=== PATIENT | male | born 1940 | race Caucasian/White ===

== ENCOUNTER 2020-03-10 08:56 | Inpatient (IN) | payer OTHER, MEDICARE ==
--- NOTE | 2020-03-10 09:02 | EDM.PDOC ---
ED HPI GENERAL MEDICAL PROBLEM - General Chief Complaint: Respiratory Problem Stated Complaint: SHORTNESS OF BREATH Time Seen by Provider: 03/10/20 09:02 Source of Information: Reports: Patient, Old Records, RN, RN Notes Reviewed History Limitations: Reports: No Limitations - History of Present Illness INITIAL COMMENTS - FREE TEXT/NARRATIVE: Pt presents to ED via POV with c/o SOB. Pt states that this started yesterday, has increased in severity since then. Pt states that he has a Hx of COPD. He is a former tobacco smoker who quit smoking 5 years ago. Pt used 3L of supplemental continuous home oxygen at all times. He admits to cough, shortness of breath, and left sided chest pain. He rates the pain 9/10. Pt is unsure if he has been tested for COVID. Pt states he had a procedure on his kidneys on 03/08/20, but is unsure if he was tested prior to the procedure. He is unsure if he has had a fever or not. Onset: Gradual Duration: Day(s): (1) Location: Reports: Chest Quality: Reports: Ache Severity: Moderate Improves with: Reports: None Worsens with: Reports: None Associated Symptoms: Reports: No Other Symptoms Treatments [employer]: Reports: Other Medication(s) Left Chest Pain Score (Numeric/FACES): 9 - Related Data Allergies Allergy/AdvReac Type Severity Reaction Status Date / Time No Known Allergies Allergy Verified 03/10/20 09:03 Home Meds: Home Meds . [No Known Home Meds] 03/10/20 [History] Past Medical History Respiratory History: Reports: COPD Social & Family History - Family History Family Medical History: Noncontributory - Tobacco Use Tobacco Use Status *Q: Former Tobacco User Tobacco Use Within Last Twelve Months: Cigarettes Month/Year Tobacco Last Used: 05/2014 - Living Situation & Occupation Occupation: Retired ED ROS GENERAL - Review of Systems Review Of Systems: Comprehensive ROS is negative, except as noted in HPI. ED EXAM, GENERAL - Physical Exam Exam: See Below Exam Limited By: No Limitations General Appearance: Alert, Mild Distress, Obese Nose: Normal Inspection, Normal Mucosa, No Blood Throat/Mouth: Normal Inspection, Normal Voice, No Airway Compromise Head: Atraumatic, Normocephalic Neck: Normal Inspection Respiratory/Chest: Decreased Breath Sounds, Crackles, Rhonchi, Wheezing. No: Rales, Stridor Cardiovascular: Regular Rate, Rhythm, Tachycardia, Other (+2 pitting edema to knees B/L) GI/Abdominal: Normal Bowel Sounds, Soft, Non-Tender Back Exam: Normal Inspection Extremities: Normal Range of Motion, Non-Tender, Pedal Edema Neurological: Alert, Oriented, No Motor/Sensory Deficits Psychiatric: Anxious Skin Exam: Warm, Dry, Intact #1 Interpretation EKG Date: 03/10/20 Time: 09:08 Rhythm: A-Fib (A-fib/flutter) Rate (Beats/Min): 101 [place]: RAD-Right [place] Deviation QRS: Normal ST-T: Normal QT: Prolonged (borderline) Comparison: NA - No Prior EKG Course - Vital Signs Last Recorded V/S: Last Vital Signs Temp 100.4 F 03/10/20 09:19 Pulse 102 H 03/10/20 10:20 Resp 24 H 03/10/20 09:19 BP 142/103 H 03/10/20 09:19 Pulse Ox 92 L 03/10/20 09:19 - Orders/Labs/Meds Orders: Active Orders 24 hr Category Date Time Status EKG 12 Lead [EKG Documentation Completion] [RC] STAT Care 03/10/20 09:11 Active Peripheral IV Care [RC] . DIRECTED Care 03/10/20 09:12 Active RT Aerosol Therapy [RC] ASDIRECTED Care 03/10/20 09:51 Active CULTURE BLOOD [BC] Stat Lab 03/10/20 09:37 Received CULTURE BLOOD [BC] Stat Lab 03/10/20 09:37 Received UA RFX VERONICA AND CULT IF INDIC [URIN] Stat Lab 03/10/20 09:51 Ordered Levofloxacin/Dextrose 5%-Water [Levaquin in D5W 750 MG/ Med 03/10/20 09:51 Active 150 ML] 750 mg Premix Bag 1 bag IV ONETIME Sodium Chloride 0.9% [Saline Flush] Med 03/10/20 09:12 Active 10 ml FLUSH ASDIRECTED PRN Blood Culture x2 Reflex Set [OM.PC] Stat Oth 03/10/20 09:10 Ordered Isolation [COMM] Routine Oth 03/10/20 09:12 Active Peripheral IV Insertion Adult [OM.PC] Stat Oth 03/10/20 09:12 Ordered Pulse Oximetry Continuous Monitoring [OM.PC] Routine Oth 03/10/20 09:12 Ordered RT Supplemental Oxygen Titration [RESPCARE] Stat Oth 03/10/20 09:12 Active Medication Orders Levofloxacin/Dextrose 750 mg/ (Premix) 150 mls @ 100 mls/hr IV ONETIME ONE Stop: 03/10/20 11:20 Last Admin: 03/10/20 09:57 Dose: 100 mls/hr Documented by: [id number] Sodium Chloride (Saline Flush) 10 ml FLUSH ASDIRECTED PRN PRN Reason: Keep Vein Open Last Admin: 03/10/20 09:57 Dose: 10 ml Documented by: [email or web address] Labs: Laboratory Tests 03/10/20 03/10/20 03/10/20 Range/Units 09:14 09:37 09:37 WBC 18.5 H (5.0-10.0) 10^3/uL RBC 4.66 (4.6-6.2) 10^6/uL Hgb 14.0 (14.0-18.0) g/dL Hct 45.2 (40.0-54.0) % MCV 97.0 (80-100) fL MCH 30.0 (27.0-34.0) pg MCHC 31.0 L (33.0-35.0) g/dL Plt Count 264 (150-450) 10^3/uL Neut % (Auto) 83.8 H (42.2-75.2) % Lymph % (Auto) 6.9 L (20.5-50.1) % [place] % (Auto) 7.1 (2-8) % Eos % (Auto) 1.6 (1.0-3.0) % Baso % (Auto) 0.6 (0.0-1.0) % PT (9.0-12.0) SEC INR (0.9-1.2) APTT (22.0-34.0) SEC D-Dimer, Quantitative (0-400) ng/mL Sodium 140 (136-145) mmol/L Potassium 4.0 (3.5-5.1) mmol/L Chloride 100 (98-107) mmol/L Carbon Dioxide 37 H (21-32) mmol/L Anion Gap 7.0 (7-13) mEq/L BUN 18 (7-18) mg/dL Creatinine 1.44 H (0.70-1.30) mg/dL Est Cr Clr Drug Dosing 45.76 mL/min Estimated GFR (MDRD) 48 BUN/Creatinine Ratio 12.5 (No establ ref range) Glucose 104 H (74-99) mg/dL Lactic Acid (0.4-2.0) mmol/L Calcium 8.8 (8.5-10.1) mg/dL Ferritin (26-388) mg/mL Total Bilirubin 0.5 (0.2-1.0) mg/dL AST 23 (15-37) U/L ALT 31 (16-63) U/L Alkaline Phosphatase 104 (46-116) U/L Lactate Dehydrogenase 486 H (85-227) U/L Troponin I < 0.017 (0.000-0.056) ng/mL C-Reactive Protein 1.3 H (0.0-0.9) mg/dL B-Natriuretic Peptide 229 H (0-100) pg/ml Total Protein 7.4 (6.4-8.2) g/dL Albumin 3.8 (3.4-5.0) g/dL Globulin 3.6 Albumin/Globulin Ratio 1.1 SARS CoV-2 RNA Rapid SHAHRZAD Negative (NEGATIVE) 03/10/20 03/10/20 03/10/20 Range/Units 09:37 09:37 09:37 WBC (5.0-10.0) 10^3/uL RBC (4.6-6.2) 10^6/uL Hgb (14.0-18.0) g/dL Hct (40.0-54.0) % MCV (80-100) fL MCH (27.0-34.0) pg MCHC (33.0-35.0) g/dL Plt Count (150-450) 10^3/uL Neut % (Auto) (42.2-75.2) % Lymph % (Auto) (20.5-50.1) % [place] % (Auto) (2-8) % Eos % (Auto) (1.0-3.0) % Baso % (Auto) (0.0-1.0) % PT 13.3 H (9.0-12.0) SEC INR 1.4 H (0.9-1.2) APTT 27.3 (22.0-34.0) SEC D-Dimer, Quantitative 624 H (0-400) ng/mL Sodium (136-145) mmol/L Potassium (3.5-5.1) mmol/L Chloride (98-107) mmol/L Carbon Dioxide (21-32) mmol/L Anion Gap (7-13) mEq/L BUN (7-18) mg/dL Creatinine (0.70-1.30) mg/dL Est Cr Clr Drug Dosing mL/min Estimated GFR (MDRD) BUN/Creatinine Ratio (No establ ref range) Glucose (74-99) mg/dL Lactic Acid 1.4 (0.4-2.0) mmol/L Calcium (8.5-10.1) mg/dL Ferritin (26-388) mg/mL Total Bilirubin (0.2-1.0) mg/dL AST (15-37) U/L ALT (16-63) U/L Alkaline Phosphatase (46-116) U/L Lactate Dehydrogenase (85-227) U/L Troponin I (0.000-0.056) ng/mL C-Reactive Protein (0.0-0.9) mg/dL B-Natriuretic Peptide (0-100) pg/ml Total Protein (6.4-8.2) g/dL Albumin (3.4-5.0) g/dL Globulin Albumin/Globulin Ratio SARS CoV-2 RNA Rapid SHAHRZAD (NEGATIVE) 03/10/20 Range/Units 09:37 WBC (5.0-10.0) 10^3/uL RBC (4.6-6.2) 10^6/uL Hgb (14.0-18.0) g/dL Hct (40.0-54.0) % MCV (80-100) fL MCH (27.0-34.0) pg MCHC (33.0-35.0) g/dL Plt Count (150-450) 10^3/uL Neut % (Auto) (42.2-75.2) % Lymph % (Auto) (20.5-50.1) % [place] % (Auto) (2-8) % Eos % (Auto) (1.0-3.0) % Baso % (Auto) (0.0-1.0) % PT (9.0-12.0) SEC INR (0.9-1.2) APTT (22.0-34.0) SEC D-Dimer, Quantitative (0-400) ng/mL Sodium (136-145) mmol/L Potassium (3.5-5.1) mmol/L Chloride (98-107) mmol/L Carbon Dioxide (21-32) mmol/L Anion Gap (7-13) mEq/L BUN (7-18) mg/dL Creatinine (0.70-1.30) mg/dL Est Cr Clr Drug Dosing mL/min Estimated GFR (MDRD) BUN/Creatinine Ratio (No establ ref range) Glucose (74-99) mg/dL Lactic Acid (0.4-2.0) mmol/L Calcium (8.5-10.1) mg/dL Ferritin 51 (26-388) mg/mL Total Bilirubin (0.2-1.0) mg/dL AST (15-37) U/L ALT (16-63) U/L Alkaline Phosphatase (46-116) U/L Lactate Dehydrogenase (85-227) U/L Troponin I (0.000-0.056) ng/mL C-Reactive Protein (0.0-0.9) mg/dL B-Natriuretic Peptide (0-100) pg/ml Total Protein (6.4-8.2) g/dL Albumin (3.4-5.0) g/dL Globulin Albumin/Globulin Ratio SARS CoV-2 RNA Rapid SHAHRZAD (NEGATIVE) Meds: Medications Generic Name Dose Route Start Last Admin Trade Name Freq PRN Reason Stop Dose Admin Levofloxacin/Dextrose 750 mg/ 150 mls @ 100 mls/hr 03/10/20 09:51 03/10/20 09:57 Premix IV 03/10/20 11:20 100 mls/hr ONETIME ONE Administration Sodium Chloride 10 ml 03/10/20 09:12 03/10/20 09:57 Saline Flush FLUSH 10 ml ASDIRECTED PRN Administration Keep Vein Open Discontinued Medications Generic Name Dose Route Start Last Admin Trade Name Freq PRN Reason Stop Dose Admin Albuterol/Ipratropium 3 ml 03/10/20 09:50 03/10/20 09:57 Duoneb 3.0-0.5 Mg/3 Ml NEB 03/10/20 09:51 3 ml ONETIME ONE Administration Dexamethasone 6 mg 03/10/20 09:12 03/10/20 09:57 Decadron IVPUSH 03/10/20 09:13 6 mg ONETIME ONE Administration Furosemide 40 mg 03/10/20 10:12 03/10/20 10:27 Lasix IVPUSH 03/10/20 10:13 40 mg NOW ONE Administration - Radiology Interpretation Free Text/Narrative:: CXR: no signs of CHF, lung mass, or lobar pneumonia, see Rad. report. Departure - Departure Time of Disposition: 10:53 (admitted to Dr. Lopez) Disposition: Admitted As Inpatient 68 Condition: Fair Clinical Impression: Acute exacerbation of chronic obstructive pulmonary disease (COPD) - Discharge Information *PRESCRIPTION DRUG MONITORING PROGRAM REVIEWED*: Not Applicable *COPY OF PRESCRIPTION DRUG MONITORING REPORT IN PATIENT ANNELISE: Not Applicable Forms: ED Department Discharge Sepsis Event Note (ED) - Focused Exam Vital Signs: Vital Signs Temp Pulse Resp BP Pulse Ox 03/10/20 10:20 102 H 03/10/20 09:19 100.4 F 102 H 24 H 142/103 H 92 L - My Orders Last 24 Hours: My Active Orders 03/10/20 09:10 Blood Culture x2 Reflex Set [OM.PC] Stat 03/10/20 09:11 EKG 12 Lead [EKG Documentation Completion] [RC] STAT 03/10/20 09:12 Peripheral IV Care [RC] . DIRECTED Sodium Chloride 0.9% [Saline Flush] 10 ml FLUSH ASDIRECTED PRN Isolation [COMM] Routine Peripheral IV Insertion Adult [OM.PC] Stat Pulse Oximetry Continuous Monitoring [OM.PC] Routine RT Supplemental Oxygen Titration [RESPCARE] Stat 03/10/20 09:37 CULTURE BLOOD [BC] Stat CULTURE BLOOD [BC] Stat 03/10/20 09:51 RT Aerosol Therapy [RC] ASDIRECTED UA RFX VERONICA AND CULT IF INDIC [URIN] Stat Levofloxacin/Dextrose 5%-Water [Levaquin in D5W 750 MG/150 ML] 750 mg Premix Bag 1 bag IV ONETIME - Assessment/Plan Last 24 Hours: My Active Orders 03/10/20 09:10 Blood Culture x2 Reflex Set [OM.PC] Stat 03/10/20 09:11 EKG 12 Lead [EKG Documentation Completion] [RC] STAT 03/10/20 09:12 Peripheral IV Care [RC] . DIRECTED Sodium Chloride 0.9% [Saline Flush] 10 ml FLUSH ASDIRECTED PRN Isolation [COMM] Routine Peripheral IV Insertion Adult [OM.PC] Stat Pulse Oximetry Continuous Monitoring [OM.PC] Routine RT Supplemental Oxygen Titration [RESPCARE] Stat 03/10/20 09:37 CULTURE BLOOD [BC] Stat CULTURE BLOOD [BC] Stat 03/10/20 09:51 RT Aerosol Therapy [RC] ASDIRECTED UA RFX VERONICA AND CULT IF INDIC [URIN] Stat Levofloxacin/Dextrose 5%-Water [Levaquin in D5W 750 MG/150 ML] 750 mg Premix Bag 1 bag IV ONETIME
[2020-03-10] MEDS ORDERED: Sodium Chloride 0.9% 10 ML Syringe FLUSH PRN (09:12)
[2020-03-10] MEDS ORDERED: Dexamethasone 4 MG/ML SDV IVPUSH ONE (09:12)
[2020-03-10] MEDS ORDERED: Albuterol/Ipratropium 3.0-0.5 MG/3 ML Neb Soln NEB ONE (09:50)
[2020-03-10] MEDS ORDERED: Levofloxacin/Dextrose 5%-Water 750 MG in Premix Bag 1 BAG IV ONE (09:51)
[2020-03-10 10:07] LABS: CHLORIDE,CL 100 mmol/L (98-107); PTT,PARTIAL THROMBOPLSTIN TIME 27.3 SEC (22.0-34.0); SODIUM,NA 140 mmol/L (136-145)
[2020-03-10] MEDS ORDERED: Furosemide 40 MG/4 ML VIAL IVPUSH ONE (10:12)
--- NOTE | 2020-03-10 10:20 | CR ---
EXAMINATION: Chest 1V Frontal SEX: Male AGE: 79 years CLINICAL HISTORY: 79-year-old male with COPD, dyspnea, cough and hypoxia (WBC over 18,000). No comparison films immediately available at this institution. Interpretation: Less than optimal inspiratory effort crowding the bronchovascular markings both lung bases. No focal lobar infiltrate or other atelectasis. No lung mass or hilar lymphadenopathy. Normal cardiac silhouette (size and configuration). Thoracic aorta unremarkable. No pulmonary vascular congestion, cephalization of flow, alveolar edema or dependent pleural effusion. No pneumothorax or pneumomediastinum. Midline tracheal bronchial airway unremarkable. CONCLUSION: No signs of heart failure, lung mass or lobar pneumonia.
[2020-03-10] MEDS ORDERED: Docusate Sodium 100 MG Cap PO PRN (12:48)
[2020-03-10] MEDS ORDERED: Acetaminophen 325 MG Tab PO PRN (12:48)
[2020-03-10] MEDS ORDERED: Temazepam 15 MG Cap PO PRN (12:48)
[2020-03-10] MEDS ORDERED: Levofloxacin/Dextrose 5%-Water 750 MG in Premix Bag 1 BAG IV SCH (13:00)
--- NOTE | 2020-03-10 13:05 | PCM.HP ---
H&P History of Present Illness - General Date of Service: 03/10/20 Admit Problem/Dx: Admission Diagnosis/Problem Admission Diagnosis/Problem Acute exacerbation of chronic obstructive airways disease Source of Information: Patient, Provider - History of Present Illness Initial Comments - Free Text/Narative: 79-year-old gentleman with a history of COPD, home oxygen dependent at 3 L per nasal cannula during the day and CPAP with 5 L at night The patient was recently hospitalized and underwent cryoablation of renal lesion. He has a history of chronic lower extremity edema. The patient presented with increasing shortness of breath that started the day prior to admission. No associated fever, cough. Was c/o left sided chest pain with cough Left Chest Pain Score (Numeric/FACES): 9 - Related Data Allergies/Adverse Reactions: Allergies Allergy/AdvReac Type Severity Reaction Status Date / Time No Known Allergies Allergy Verified 03/10/20 09:03 Home Medications: Home Meds . [Unable to Verify Home Med List] 03/10/20 [History] Past Medical History Cardiovascular History: Reports: [place] Respiratory History: Reports: COPD - Past Surgical History Cardiovascular Surgical History: Reports: Coronary Artery Stent Male Surgical History: Reports: Other (See Below) Social & Family History - Family History Family Medical History: Noncontributory - Tobacco Use Tobacco Use Status *Q: Former Tobacco User Used Tobacco, but Quit: Yes Month/Year Tobacco Last Used: 05/2014 - Caffeine Use Caffeine Use: Reports: Coffee - Living Situation & Occupation Occupation: Retired H&P Review of Systems - Review of Systems: Review Of Systems: See Below General: Reports: Weakness. Denies: Fever, Chills Pulmonary: Reports: Shortness of Breath, Pleuritic Chest Pain, Cough. Denies: Wheezing, Sputum Gastrointestinal: Denies: Abdominal Pain Genitourinary: Denies: Dysuria Neurological: Denies: Confusion Exam - Exam Exam: See Below - Vital Signs Vital Signs: Last Vital Signs Temp 99.5 F 03/10/20 12:28 Pulse 86 03/10/20 12:28 Resp 22 H 03/10/20 12:28 BP 126/84 03/10/20 12:28 Pulse Ox 91 L 03/10/20 12:28 Weight: 238 lb - Exam Quality Assessment: Supplemental Oxygen General: Alert, Oriented Neck: Supple Lungs: Normal Respiratory Effort, Decreased Breath Sounds, Wheezing (mild) Cardiovascular: Irregular Rhythm GI/Abdominal Exam: Normal Bowel Sounds, Soft, Non-Tender Extremities: Pedal Edema (2+) - Patient Data Lab Results Last 24 hrs: Laboratory Results - last 24 hr 03/10/20 03/10/20 03/10/20 Range/Units 09:14 09:37 09:37 WBC 18.5 H (5.0-10.0) 10^3/uL RBC 4.66 (4.6-6.2) 10^6/uL Hgb 14.0 (14.0-18.0) g/dL Hct 45.2 (40.0-54.0) % MCV 97.0 (80-100) fL MCH 30.0 (27.0-34.0) pg MCHC 31.0 L (33.0-35.0) g/dL Plt Count 264 (150-450) 10^3/uL Neut % (Auto) 83.8 H (42.2-75.2) % Lymph % (Auto) 6.9 L (20.5-50.1) % [place] % (Auto) 7.1 (2-8) % Eos % (Auto) 1.6 (1.0-3.0) % Baso % (Auto) 0.6 (0.0-1.0) % PT (9.0-12.0) SEC INR (0.9-1.2) APTT (22.0-34.0) SEC D-Dimer, Quantitative (0-400) ng/mL Sodium 140 (136-145) mmol/L Potassium 4.0 (3.5-5.1) mmol/L Chloride 100 (98-107) mmol/L Carbon Dioxide 37 H (21-32) mmol/L Anion Gap 7.0 (7-13) mEq/L BUN 18 (7-18) mg/dL Creatinine 1.44 H (0.70-1.30) mg/dL Est Cr Clr Drug Dosing 45.76 mL/min Estimated GFR (MDRD) 48 BUN/Creatinine Ratio 12.5 (No establ ref range) Glucose 104 H (74-99) mg/dL Lactic Acid (0.4-2.0) mmol/L Calcium 8.8 (8.5-10.1) mg/dL Ferritin (26-388) mg/mL Total Bilirubin 0.5 (0.2-1.0) mg/dL AST 23 (15-37) U/L ALT 31 (16-63) U/L Alkaline Phosphatase 104 (46-116) U/L Lactate Dehydrogenase 486 H (85-227) U/L Troponin I < 0.017 (0.000-0.056) ng/mL C-Reactive Protein 1.3 H (0.0-0.9) mg/dL B-Natriuretic Peptide 229 H (0-100) pg/ml Total Protein 7.4 (6.4-8.2) g/dL Albumin 3.8 (3.4-5.0) g/dL Globulin 3.6 Albumin/Globulin Ratio 1.1 Urine Color (YELLOW) Urine Appearance (CLEAR) Urine pH (5.0-9.0) Ur Specific [place] (1.005-1.030) Urine Protein (NEGATIVE) Urine Glucose (UA) (NEGATIVE) Urine Ketones (NEGATIVE) Urine Occult Blood (NEGATIVE) Urine Nitrite (NEGATIVE) Urine Bilirubin (NEGATIVE) Urine Urobilinogen (0.2-1.0) mg/dL Ur Leukocyte Esterase (NEGATIVE) Urine RBC /HPF Urine WBC (0-5/HPF) /HPF Ur Epithelial Cells (NOT SEEN) /HPF Amorphous Sediment (NOT SEEN) /HPF Urine Bacteria (0-FEW/HPF) /HPF Urine Mucus (NOT SEEN) /LPF SARS CoV-2 RNA Rapid SHAHRZAD Negative (NEGATIVE) 03/10/20 03/10/20 03/10/20 Range/Units 09:37 09:37 09:37 WBC (5.0-10.0) 10^3/uL RBC (4.6-6.2) 10^6/uL Hgb (14.0-18.0) g/dL Hct (40.0-54.0) % MCV (80-100) fL MCH (27.0-34.0) pg MCHC (33.0-35.0) g/dL Plt Count (150-450) 10^3/uL Neut % (Auto) (42.2-75.2) % Lymph % (Auto) (20.5-50.1) % [place] % (Auto) (2-8) % Eos % (Auto) (1.0-3.0) % Baso % (Auto) (0.0-1.0) % PT 13.3 H (9.0-12.0) SEC INR 1.4 H (0.9-1.2) APTT 27.3 (22.0-34.0) SEC D-Dimer, Quantitative 624 H (0-400) ng/mL Sodium (136-145) mmol/L Potassium (3.5-5.1) mmol/L Chloride (98-107) mmol/L Carbon Dioxide (21-32) mmol/L Anion Gap (7-13) mEq/L BUN (7-18) mg/dL Creatinine (0.70-1.30) mg/dL Est Cr Clr Drug Dosing mL/min Estimated GFR (MDRD) BUN/Creatinine Ratio (No establ ref range) Glucose (74-99) mg/dL Lactic Acid 1.4 (0.4-2.0) mmol/L Calcium (8.5-10.1) mg/dL Ferritin (26-388) mg/mL Total Bilirubin (0.2-1.0) mg/dL AST (15-37) U/L ALT (16-63) U/L Alkaline Phosphatase (46-116) U/L Lactate Dehydrogenase (85-227) U/L Troponin I (0.000-0.056) ng/mL C-Reactive Protein (0.0-0.9) mg/dL B-Natriuretic Peptide (0-100) pg/ml Total Protein (6.4-8.2) g/dL Albumin (3.4-5.0) g/dL Globulin Albumin/Globulin Ratio Urine Color (YELLOW) Urine Appearance (CLEAR) Urine pH (5.0-9.0) Ur Specific [place] (1.005-1.030) Urine Protein (NEGATIVE) Urine Glucose (UA) (NEGATIVE) Urine Ketones (NEGATIVE) Urine Occult Blood (NEGATIVE) Urine Nitrite (NEGATIVE) Urine Bilirubin (NEGATIVE) Urine Urobilinogen (0.2-1.0) mg/dL Ur Leukocyte Esterase (NEGATIVE) Urine RBC /HPF Urine WBC (0-5/HPF) /HPF Ur Epithelial Cells (NOT SEEN) /HPF Amorphous Sediment (NOT SEEN) /HPF Urine Bacteria (0-FEW/HPF) /HPF Urine Mucus (NOT SEEN) /LPF SARS CoV-2 RNA Rapid SHAHRZAD (NEGATIVE) 03/10/20 03/10/20 Range/Units 09:37 10:52 WBC (5.0-10.0) 10^3/uL RBC (4.6-6.2) 10^6/uL Hgb (14.0-18.0) g/dL Hct (40.0-54.0) % MCV (80-100) fL MCH (27.0-34.0) pg MCHC (33.0-35.0) g/dL Plt Count (150-450) 10^3/uL Neut % (Auto) (42.2-75.2) % Lymph % (Auto) (20.5-50.1) % [place] % (Auto) (2-8) % Eos % (Auto) (1.0-3.0) % Baso % (Auto) (0.0-1.0) % PT (9.0-12.0) SEC INR (0.9-1.2) APTT (22.0-34.0) SEC D-Dimer, Quantitative (0-400) ng/mL Sodium (136-145) mmol/L Potassium (3.5-5.1) mmol/L Chloride (98-107) mmol/L Carbon Dioxide (21-32) mmol/L Anion Gap (7-13) mEq/L BUN (7-18) mg/dL Creatinine (0.70-1.30) mg/dL Est Cr Clr Drug Dosing mL/min Estimated GFR (MDRD) BUN/Creatinine Ratio (No establ ref range) Glucose (74-99) mg/dL Lactic Acid (0.4-2.0) mmol/L Calcium (8.5-10.1) mg/dL Ferritin 51 (26-388) mg/mL Total Bilirubin (0.2-1.0) mg/dL AST (15-37) U/L ALT (16-63) U/L Alkaline Phosphatase (46-116) U/L Lactate Dehydrogenase (85-227) U/L Troponin I (0.000-0.056) ng/mL C-Reactive Protein (0.0-0.9) mg/dL B-Natriuretic Peptide (0-100) pg/ml Total Protein (6.4-8.2) g/dL Albumin (3.4-5.0) g/dL Globulin Albumin/Globulin Ratio Urine Color Yellow (YELLOW) Urine Appearance Clear (CLEAR) Urine pH 7.0 (5.0-9.0) Ur Specific [place] 1.020 (1.005-1.030) Urine Protein Trace H (NEGATIVE) Urine Glucose (UA) Negative (NEGATIVE) Urine Ketones Negative (NEGATIVE) Urine Occult Blood Large H (NEGATIVE) Urine Nitrite Negative (NEGATIVE) Urine Bilirubin Negative (NEGATIVE) Urine Urobilinogen 0.2 (0.2-1.0) mg/dL Ur Leukocyte Esterase Negative (NEGATIVE) Urine RBC 30-40 H /HPF Urine WBC 0-5 (0-5/HPF) /HPF Ur Epithelial Cells Rare (NOT SEEN) /HPF Amorphous Sediment Rare (NOT SEEN) /HPF Urine Bacteria Rare (0-FEW/HPF) /HPF Urine Mucus Rare (NOT SEEN) /LPF SARS CoV-2 RNA Rapid SHAHRZAD (NEGATIVE) Result Diagrams: 03/10/20 09:37 03/10/20 09:37 Good Results Last 24 hrs: Microbiology 03/10/20 09:14 Influenza Type A Antigen Screen - Final Nasal, Unspecified NEGATIVE INFLUENZA A VIRUS AG REFERENCE RANGE: NEGATIVE Influenza Type B Antigen Screen - Final NEGATIVE INFLUENZA B VIRUS AG REFERENCE RANGE: NEGATIVE - Problem List (1) Hypoxemia SNOMED Code(s): 982878362 ICD Code: R09.02 - HYPOXEMIA Status: Acute Current Visit: Yes (2) Afib SNOMED Code(s): 36515338 ICD Code: I48.91 - UNSPECIFIED ATRIAL FIBRILLATION Status: Acute Current Visit: Yes (3) Leukocytosis SNOMED Code(s): 122684596, 866450993 ICD Code: D72.829 - ELEVATED WHITE BLOOD CELL COUNT, UNSPECIFIED Status: Acute Current Visit: Yes (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 SNOMED Code(s): 19745261, 26319726, 15975772 ICD Code: D30.02 - BENIGN NEOPLASM OF LEFT KIDNEY Status: Acute Current Visit: Yes (5) Acute exacerbation of chronic obstructive pulmonary disease (COPD) SNOMED Code(s): 902378297 ICD Code: J44.1 - CHRONIC OBSTRUCTIVE PULMONARY DISEASE W (ACUTE) EXACERBATION Status: Acute Current Visit: No Problem List Initiated/Reviewed/Updated: Yes Orders Last 24hrs: Active Orders 24 hr Category Date Time Status Admission Diagnosis [ADT] Routine ADT 03/10/20 10:58 Ordered Admission Status [Patient Status] [ADT] Routine ADT 03/10/20 10:58 Active CPAP Adult [RT BiPAP/CPAP] [RC] ASDIRECTED Care 03/10/20 12:58 Ordered Oxygen Therapy [RC] PRN Care 03/10/20 12:49 Ordered RT Aerosol Therapy [RC] ASDIRECTED Care 03/10/20 13:02 Ordered Up With Assistance [RC] ASDIRECTED Care 03/10/20 12:48 Ordered VTE/DVT Education [RC] PER UNIT ROUTINE Care 03/10/20 12:49 Ordered Vital Signs [RC] Q4H Care 03/10/20 12:49 Ordered Regular Diet [DIET] Diet 03/10/20 Dinner Ordered BASIC METABOLIC PANEL,BMP [CHEM] AM Lab 03/11/20 05:11 Ordered CBC WITH AUTO DIFF [HEME] AM Lab 03/11/20 05:11 Ordered CULTURE BLOOD [BC] Stat Lab 03/10/20 09:37 Received CULTURE BLOOD [BC] Stat Lab 03/10/20 09:37 Received CULTURE SPUTUM + SMEAR [RM] Stat Lab 03/10/20 12:48 Ordered MAGNESIUM [CHEM] AM Lab 03/11/20 05:11 Ordered PHOSPHORUS [CHEM] AM Lab 03/11/20 05:11 Ordered PROCALCITONIN [REF] AM Lab 03/11/20 05:11 Ordered TROPONIN I [CHEM] Timed Lab 03/10/20 18:00 Ordered Acetaminophen [TylenoL] Med 03/10/20 12:48 Ordered 650 mg PO Q4H PRN Albuterol/Ipratropium [DuoNeb 3.0-0.5 MG/3 ML] Med 03/10/20 18:00 Ordered 3 ml NEB Q6HRRT Budesonide [Pulmicort] Med 03/10/20 18:00 Ordered 0.5 mg NEB BIDRT Docusate Sodium [Colace] Med 03/10/20 12:48 Ordered 100 mg PO BID PRN Furosemide [Lasix] Med 03/10/20 21:00 Ordered 40 mg PO BID Levofloxacin/Dextrose 5%-Water [Levaquin in D5W 750 MG/ Med 03/10/20 13:00 Ordered 150 ML] 750 mg Premix Bag 1 bag IV Q24H Rivaroxaban [Xarelto] Med 03/10/20 18:00 Ordered 15 mg PO WITHDINNER Sodium Chloride 0.9% [Saline Flush] Med 03/10/20 09:12 Active 10 ml FLUSH ASDIRECTED PRN Sodium Chloride 0.9% [Saline Flush] Med 03/10/20 12:48 Ordered 10 ml FLUSH ASDIRECTED PRN Temazepam [Restoril] Med 03/10/20 12:48 Ordered 15 mg PO BEDTIME PRN methylPREDNISolone Sod Succ [Solu-MEDROL] Med 03/10/20 13:15 Ordered 40 mg IVPUSH Q8H Blood Culture x2 Reflex Set [OM.PC] Stat Oth 03/10/20 09:10 Ordered Isolation [COMM] Routine Oth 03/10/20 09:12 Active Peripheral IV Insertion Adult [OM.PC] Stat Oth 03/10/20 09:12 Ordered Pulse Oximetry Continuous Monitoring [OM.PC] Routine Oth 03/10/20 09:12 Ordered RT Supplemental Oxygen Titration [RESPCARE] Stat Oth 03/10/20 09:12 Active Saline Lock Insert [OM.PC] Routine Oth 03/10/20 12:48 Ordered Resuscitation Status Routine Resus Stat 03/10/20 12:48 Ordered Medication Orders Acetaminophen (Tylenol) 650 mg PO Q4H PRN PRN Reason: Pain (Mild 1-3)/fever Albuterol/Ipratropium (Duoneb 3.0-0.5 Mg/3 Ml) 3 ml NEB Q6HRRT MICHAEL Budesonide (Pulmicort) 0.5 mg NEB BIDRT MICHAEL Docusate Sodium (Colace) 100 mg PO BID PRN PRN Reason: Constipation Furosemide (Lasix) 40 mg PO BID MICHAEL Levofloxacin/Dextrose 750 mg/ (Premix) 150 mls @ 100 mls/hr IV Q24H MICHAEL Methylprednisolone Sodium Succinate (Solu-Medrol) 40 mg IVPUSH Q8H MICHAEL Rivaroxaban (Xarelto) 15 mg PO WITHDINNER MICHAEL Sodium Chloride (Saline Flush) 10 ml FLUSH ASDIRECTED PRN PRN Reason: Keep Vein Open Last Admin: 03/10/20 09:57 Dose: 10 ml Documented by: [id number] Sodium Chloride (Saline Flush) 10 ml FLUSH ASDIRECTED PRN PRN Reason: Keep Vein Open Temazepam (Restoril) 15 mg PO BEDTIME PRN PRN Reason: Sleep Assessment/Plan Comment:: 79-year-old gentleman with a history of COPD, home oxygen dependent at 3 L per nasal cannula during the day and CPAP with 5 L at night The patient was recently hospitalized and underwent cryoablation of renal lesion. He has a history of chronic lower extremity edema. The patient presented with increasing shortness of breath that started the day prior to admission. No associated fever, cough. Was c/o left sided chest pain with cough Acute on chronic hypoxemic respiratory failure Well supplement and titrate oxygen as needed Acute COPD exacerbation We will treat with steroids Pulmicort, DuoNeb scheduled and as needed Obstructive sleep apnea Continue CPAP at night Leukocytosis Might relate to pulmonary infection Obtain sputum culture, blood culture This might relate to recent cryoablation as well For now empirically treat with levofloxacin Significant lower extremity edema BNP slightly high Will treat with diuretics Left sided CP Ekg: Aflutter Monitor troponins Anticoagulation for atrial fibrillation Continue xarelto (adjust dose for CrCl 45) Matt Use cpap at night We will try to obtain further medical information from [facility] where the patient recently was treated. I have called medical records Discussed resuscitation measures The patient wish to be full code
--- NOTE | 2020-03-10 13:44 | PCM.SN.2 ---
- Free Text/Narrative Note: records from [facility] were reviewed The patient has a history of A. fib, congestive heart failure, COPD, diabetes( diet-controlled), gastroesophageal reflux disease, dyslipidemia, hypertension
[2020-03-10] MEDS: Pantoprazole 40 MG Tab.CR PO SCH (16:55)
[2020-03-10] MEDS: Albuterol/Ipratropium 3.0-0.5 MG/3 ML Neb Soln NEB SCH (18:07)
[2020-03-10] MEDS: Budesonide 0.5 MG/2 ML Neb Susp NEB SCH (18:07)
[2020-03-10] MEDS: Rivaroxaban 10 MG Tab PO SCH (18:08)
[2020-03-10] MEDS: Sodium Chloride 0.9% 10 ML Syringe FLUSH PRN (18:09)
[2020-03-10] MEDS: methylPREDNISolone Sodium Succinate 40 MG/1 ML SDV IVPUSH SCH (18:09)
[2020-03-10] MEDS: Furosemide 40 MG Tab PO SCH ×2 (19:41→21:18)
[2020-03-10] MEDS: Metoprolol Tartrate 25 MG Tab PO SCH (21:16)
[2020-03-10] MEDS: atorvaSTATin 10 MG Tab PO SCH (21:16)
[2020-03-10] MEDS: Tiotropium Inhaler 18 MCG Inhalation Powder Cap Kit of 5 INH SCH (21:17)
[2020-03-11] MEDS: Albuterol/Ipratropium 3.0-0.5 MG/3 ML Neb Soln NEB SCH ×4 (01:12→17:36)
[2020-03-11] MEDS: Sodium Chloride 0.9% 10 ML Syringe FLUSH PRN ×4 (01:13→22:14)
[2020-03-11] MEDS: methylPREDNISolone Sodium Succinate 40 MG/1 ML SDV IVPUSH SCH ×3 (01:13→17:34)
[2020-03-11] MEDS: Pantoprazole 40 MG Tab.CR PO SCH ×2 (05:42→17:33)
[2020-03-11] MEDS: Budesonide 0.5 MG/2 ML Neb Susp NEB SCH ×2 (07:34→17:36)
[2020-03-11] MEDS ORDERED: Non-Formulary Medication 1 Each (Rosuvastatin [Crestor] 5 MG) PO SCH (09:00)
[2020-03-11] MEDS: Clopidogrel 75 MG Tab PO SCH (09:44)
[2020-03-11] MEDS: Furosemide 40 MG Tab PO SCH ×2 (09:45→14:20)
[2020-03-11] MEDS: Tiotropium Inhaler 18 MCG Inhalation Powder Cap Kit of 5 INH SCH (09:49)
[2020-03-11] MEDS: Diltiazem 180 MG Cap.CD PO SCH (10:53)
[2020-03-11] MEDS: Metoprolol Tartrate 25 MG Tab PO SCH (10:53)
[2020-03-11] MEDS ORDERED: Metoprolol Tartrate 25 MG Tab PO ONE (12:14)
--- NOTE | 2020-03-11 13:07 | PCM.PN ---
- General Info Date of Service: 03/11/20 Admission Dx/Problem (Free Text): Admission Diagnosis/Problem Admission Diagnosis/Problem Acute exacerbation of chronic obstructive airways disease Subjective Update: shortness of breath is better Continues to have left-sided pleuritic chest pain with coughing, deep breaths. No fever. No diarrhea. Symptoms started prior to admission, shortness of breath is improving the associated lower extremity edema is better Functional Status: Reports: Tolerating Diet, Ambulating - Review of Systems General: Denies: Fever Pulmonary: Reports: Shortness of Breath, Pleuritic Chest Pain Gastrointestinal: Denies: Abdominal Pain Genitourinary: Denies: Dysuria Neurological: Denies: Confusion - Patient Data Vitals - Most Recent: Last Vital Signs Temp 98.2 F 03/11/20 08:40 Pulse 136 H 03/11/20 12:31 Resp 20 03/11/20 12:19 BP 109/76 03/11/20 12:31 Pulse Ox 90 L 03/11/20 12:19 Weight - Most Recent: 238 lb 9.6 oz I&O - Last 24 Hours: Intake & Output 03/10/20 03/11/20 03/11/20 22:59 06:59 14:59 Intake Total 600 1000 440 Output Total 500 Balance 600 500 440 Lab Results Last 24 Hours: Laboratory Results - last 24 hr 03/10/20 03/11/20 03/11/20 Range/Units 17:55 05:56 05:56 WBC 17.3 H (5.0-10.0) 10^3/uL RBC 4.30 L (4.6-6.2) 10^6/uL Hgb 12.9 L (14.0-18.0) g/dL Hct 40.6 (40.0-54.0) % MCV 94.4 (80-100) fL MCH 30.0 (27.0-34.0) pg MCHC 31.8 L (33.0-35.0) g/dL Plt Count 239 (150-450) 10^3/uL Neut % (Auto) 93.4 H (42.2-75.2) % Lymph % (Auto) 3.9 L (20.5-50.1) % Posey % (Auto) 2.5 (2-8) % Eos % (Auto) 0.0 L (1.0-3.0) % Baso % (Auto) 0.2 (0.0-1.0) % Add Manual Diff Yes Neutrophils % (Manual) 87 H (42-75) % Band Neutrophils % 3 % Lymphocytes % (Manual) 8 L (20-50) % Monocytes % (Manual) 1 L (2-8) % Metamyelocytes % 1 Basophilic Stippling Few Anisocytosis 1+ slight Sodium 136 (136-145) mmol/L Potassium 4.0 (3.5-5.1) mmol/L Chloride 98 (98-107) mmol/L Carbon Dioxide 34 H (21-32) mmol/L Anion Gap 8.0 (7-13) mEq/L BUN 23 H (7-18) mg/dL Creatinine 1.37 H (0.70-1.30) mg/dL Est Cr Clr Drug Dosing 48.09 mL/min Estimated GFR (MDRD) 50 Glucose 235 H (74-99) mg/dL Calcium 8.7 (8.5-10.1) mg/dL Phosphorus 2.5 L (2.6-4.7) mg/dL Magnesium 1.6 L (1.8-2.4) mg/dL Troponin I < 0.017 (0.000-0.056) ng/mL Good Results Last 24 Hours: Microbiology 03/10/20 09:37 Aerobic Blood Culture - Preliminary Blood - Arm, Right NO GROWTH AFTER 1 DAY Anaerobic Blood Culture - Preliminary NO GROWTH AFTER 1 DAY 03/10/20 09:37 Aerobic Blood Culture - Preliminary Blood - Arm, Left NO GROWTH AFTER 1 DAY Anaerobic Blood Culture - Preliminary NO GROWTH AFTER 1 DAY 03/11/20 01:15 Gram Stain - Final Sputum - Expectorated 03/10/20 09:14 Influenza Type A Antigen Screen - Final Nasal, Unspecified NEGATIVE INFLUENZA A VIRUS AG REFERENCE RANGE: NEGATIVE Influenza Type B Antigen Screen - Final NEGATIVE INFLUENZA B VIRUS AG REFERENCE RANGE: NEGATIVE Med Orders - Current: Current Medications Acetaminophen (Tylenol) 650 mg PO Q4H PRN PRN Reason: Pain (Mild 1-3)/fever Last Admin: 03/11/20 12:59 Dose: 650 mg Documented by: Albuterol/Ipratropium (Duoneb 3.0-0.5 Mg/3 Ml) 3 ml NEB Q6HRRT [facility] Last Admin: 03/11/20 07:33 Dose: 3 ml Documented by: Atorvastatin Calcium (Lipitor) 10 mg PO BEDTIME [facility] Last Admin: 03/10/20 21:16 Dose: 10 mg Documented by: Budesonide (Pulmicort) 0.5 mg NEB BIDRT [facility] Last Admin: 03/11/20 07:34 Dose: 0.5 mg Documented by: Clopidogrel Bisulfate (Plavix) 75 mg PO DAILY [facility] Last Admin: 03/11/20 09:44 Dose: 75 mg Documented by: Diltiazem HCl (Cardizem Cd) 180 mg PO DAILY [facility] Last Admin: 03/11/20 10:53 Dose: 180 mg Documented by: Docusate Sodium (Colace) 100 mg PO BID PRN PRN Reason: Constipation Furosemide (Lasix) 40 mg PO BIDDIURETIC [facility] Last Admin: 03/11/20 09:45 Dose: 40 mg Documented by: Hydroxyurea (Hydrea) 500 mg PO MoWeFr@0800 [facility] Levofloxacin/Dextrose 750 mg/ (Premix) 150 mls @ 100 mls/hr IV Q48H [facility] Methylprednisolone Sodium Succinate (Solu-Medrol) 40 mg IVPUSH Q8H [facility] Last Admin: 03/11/20 09:46 Dose: 40 mg Documented by: Metoprolol Tartrate (Lopressor) 50 mg PO BID MICHAEL Pantoprazole Sodium (Protonix) 40 mg PO BIDAC [facility] Last Admin: 03/11/20 05:42 Dose: 40 mg Documented by: Rivaroxaban (Xarelto) 15 mg PO WITHDINNER [facility] Last Admin: 03/10/20 18:08 Dose: 15 mg Documented by: Sodium Chloride (Saline Flush) 10 ml FLUSH ASDIRECTED PRN PRN Reason: Keep Vein Open Last Admin: 03/11/20 09:50 Dose: 10 ml Documented by: Temazepam (Restoril) 15 mg PO BEDTIME PRN PRN Reason: Sleep Tiotropium [place] (Spiriva Handihaler) 18 mcg INH BID [facility] Last Admin: 03/11/20 09:49 Dose: 18 mg Documented by: Discontinued Medications Albuterol/Ipratropium (Duoneb 3.0-0.5 Mg/3 Ml) 3 ml NEB ONETIME ONE Stop: 03/10/20 09:51 Last Admin: 03/10/20 09:57 Dose: 3 ml Documented by: Dexamethasone (Decadron) 6 mg IVPUSH ONETIME ONE Stop: 03/10/20 09:13 Last Admin: 03/10/20 09:57 Dose: 6 mg Documented by: Furosemide (Lasix) 40 mg IVPUSH NOW ONE Stop: 03/10/20 10:13 Last Admin: 03/10/20 10:27 Dose: 40 mg Documented by: Furosemide (Lasix) 40 mg PO BID [facility] Last Admin: 03/10/20 21:18 Dose: Not Given Documented by: Levofloxacin/Dextrose 750 mg/ (Premix) 150 mls @ 100 mls/hr IV ONETIME ONE Stop: 03/10/20 11:20 Last Infusion: 03/10/20 11:36 Dose: Infused Documented by: Levofloxacin/Dextrose 750 mg/ (Premix) 150 mls @ 100 mls/hr IV Q24H [facility] Last Admin: 03/10/20 15:34 Dose: Not Given Documented by: Metoprolol Tartrate (Lopressor) 25 mg PO BID [facility] Last Admin: 03/11/20 10:53 Dose: 25 mg Documented by: Metoprolol Tartrate (Lopressor) 25 mg PO ONETIME ONE Stop: 03/11/20 12:15 Last Admin: 03/11/20 12:31 Dose: 25 mg Documented by: Non-Formulary Medication (Rosuvastatin [Crestor]) 5 mg PO DAILY [facility] Sodium Chloride (Saline Flush) 10 ml FLUSH ASDIRECTED PRN PRN Reason: Keep Vein Open Last Admin: 03/10/20 09:57 Dose: 10 ml Documented by: - Exam Quality Assessment: Supplemental Oxygen General: Alert, Oriented Neck: Supple Lungs: Normal Respiratory Effort, Decreased Breath Sounds Cardiovascular: Irregular Rhythm GI/Abdominal Exam: Normal Bowel Sounds, Soft, Non-Tender Extremities: Pedal Edema (1-2+) Skin: Warm, Dry Neurological: No New Focal Deficit Psy/Mental Status: Alert, Normal Affect, Normal Mood Sepsis Event Note - Evaluation Sepsis Screening Result: Sepsis Risk - Focused Exam Vital Signs: Vital Signs Temp Pulse Pulse Pulse Resp BP BP 03/11/20 12:31 136 H 109/76 03/11/20 12:19 136 H 20 03/11/20 10:53 137 H 114/62 03/11/20 08:40 98.2 F 69 20 112/42 L 03/11/20 07:35 66 03/11/20 05:30 97 F 66 20 03/11/20 01:22 66 BP Pulse Ox Pulse Ox 03/11/20 12:31 03/11/20 12:19 109/76 90 L 03/11/20 10:53 03/11/20 08:40 93 L 03/11/20 07:35 03/11/20 05:30 108/62 92 L 03/11/20 01:22 93 L - Problem List & Annotations (1) Hypoxemia SNOMED Code(s): 669527380 Code(s): R09.02 - HYPOXEMIA Status: Acute Current Visit: Yes (2) Afib SNOMED Code(s): 50172902 Code(s): I48.91 - UNSPECIFIED ATRIAL FIBRILLATION Status: Acute Current Visit: Yes (3) Leukocytosis SNOMED Code(s): 773783280, 410578858 Code(s): D72.829 - ELEVATED WHITE BLOOD CELL COUNT, UNSPECIFIED Status: Acute Current Visit: Yes (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 SNOMED Code(s): 13291701, 77322007, 98417325 Code(s): D30.02 - BENIGN NEOPLASM OF LEFT KIDNEY Status: Acute Current Visit: Yes (5) Acute exacerbation of chronic obstructive pulmonary disease (COPD) SNOMED Code(s): 345258710 Code(s): J44.1 - CHRONIC OBSTRUCTIVE PULMONARY DISEASE W (ACUTE) EXACERBATION Status: Acute Current Visit: No (6) Renal cell carcinoma SNOMED Code(s): 537138076, 257221320 Code(s): C64.9 - MALIGNANT NEOPLASM OF UNSP KIDNEY, EXCEPT RENAL PELVIS Status: Acute Current Visit: Yes - Problem List Review Problem List Initiated/Reviewed/Updated: Yes - My Orders Last 24 Hours: My Active Orders 03/10/20 12:48 Up With Assistance [RC] ASDIRECTED Acetaminophen [TylenoL] 650 mg PO Q4H PRN Docusate Sodium [Colace] 100 mg PO BID PRN Sodium Chloride 0.9% [Saline Flush] 10 ml FLUSH ASDIRECTED PRN Temazepam [Restoril] 15 mg PO BEDTIME PRN Saline Lock Insert [OM.PC] Routine Resuscitation Status Routine 03/10/20 12:49 Oxygen Therapy [RC] PRN VTE/DVT Education [RC] PER UNIT ROUTINE Vital Signs [RC] Q4H 03/10/20 12:58 CPAP Adult [RT BiPAP/CPAP] [RC] ASDIRECTED 03/10/20 13:02 RT Aerosol Therapy [RC] ASDIRECTED 03/10/20 14:45 RT Post Treatment Assessment [RC] Click to Edit RT Pre-Treatment Assessment [RC] Click to Edit 03/10/20 16:00 Pantoprazole [ProTONIX] 40 mg PO BIDAC 03/10/20 Dinner Regular Diet [DIET] 03/10/20 17:39 IS (RT) [RT Incentive Spirometry] [RC] ASDIRECTED 03/10/20 17:40 Flutter Valve Therapy [RT Chest Physiotherapy] [RC] ASDIRECTED 03/10/20 18:00 Albuterol/Ipratropium [DuoNeb 3.0-0.5 MG/3 ML] 3 ml NEB Q6HRRT Budesonide [Pulmicort] 0.5 mg NEB BIDRT Rivaroxaban [Xarelto] 15 mg PO WITHDINNER methylPREDNISolone Sod Succ [Solu-MEDROL] 40 mg IVPUSH Q8H 03/10/20 21:00 Tiotropium [Spiriva HandiHaler] 18 mcg INH BID atorvaSTATin [Lipitor] 10 mg PO BEDTIME 03/11/20 01:15 CULTURE SPUTUM + SMEAR [RM] Stat 03/11/20 05:56 PROCALCITONIN [REF] AM 03/11/20 08:00 Furosemide [Lasix] 40 mg PO BIDDIURETIC 03/11/20 09:00 Clopidogrel [Plavix] 75 mg PO DAILY Diltiazem [Cardizem CD] 180 mg PO DAILY 03/11/20 17:00 Phosphorus #1 [Neutra-Phos] 250 mg PO QID 03/11/20 18:00 Magnesium Oxide 250 mg PO BIDM 03/11/20 21:00 Metoprolol Tartrate [Lopressor] 50 mg PO BID 03/12/20 05:15 BASIC METABOLIC PANEL,BMP [CHEM] AM CBC WITH AUTO DIFF [HEME] AM 03/12/20 08:00 Hydroxyurea [Hydrea] 500 mg PO MoWeFr@0800 03/12/20 13:00 Levofloxacin/Dextrose 5%-Water [Levaquin in D5W 750 MG/150 ML] 750 mg Premix Bag 1 bag IV Q48H - Plan Plan:: 79-year-old gentleman with a history of COPD, home oxygen dependent at 3 L per nasal cannula during the day and CPAP with 5 L at night The patient was recently hospitalized and underwent cryoablation of renal lesion . He has a history of chronic lower extremity edema. The patient presented with increasing shortness of breath that started the day prior to admission. No associated fever, cough. Was c/o left sided chest pain with cough Acute on chronic hypoxemic respiratory failure Well supplement and titrate oxygen as needed Acute COPD exacerbation We will treat with steroids Pulmicort, DuoNeb scheduled and as needed Obstructive sleep apnea Continue CPAP at night Leukocytosis Might relate to pulmonary infection pending sputum culture, blood culture This might relate to recent cryoablation as well For now empirically treat with levofloxacin Significant lower extremity edema BNP slightly high Will continue to treat with diuretics Left sided CP - pleuritic Ekg: Aflutter Monitor troponins afib control rate with metoprolol, cardizem Anticoagulation for atrial fibrillation Continue xarelto (adjust dose for CrCl 45) Matt Use cpap at night Discussed resuscitation measures The patient wish to be full code
[2020-03-11] MEDS ORDERED: oxyCODONE 5 MG Tab PO PRN (14:14)
[2020-03-11] MEDS: Lidocaine 5% 700 MG Patch TOP SCH (14:21)
[2020-03-11] MEDS: Rivaroxaban 10 MG Tab PO SCH (17:32)
[2020-03-11] MEDS: Phosphorus #1 250 MG Tab PO SCH ×2 (17:33→22:13)
[2020-03-11] MEDS ORDERED: REMOVE LIDOCAINE TRDERM SCH (21:00)
[2020-03-11] MEDS: Metoprolol Tartrate 50 MG Tab PO SCH (22:06)
[2020-03-11] MEDS: atorvaSTATin 10 MG Tab PO SCH (22:07)
[2020-03-12] MEDS: Tiotropium Inhaler 18 MCG Inhalation Powder Cap Kit of 5 INH SCH ×2 (00:42→09:48)
[2020-03-12] MEDS: Albuterol/Ipratropium 3.0-0.5 MG/3 ML Neb Soln NEB SCH ×2 (00:43→07:43)
[2020-03-12] MEDS: methylPREDNISolone Sodium Succinate 40 MG/1 ML SDV IVPUSH SCH ×2 (03:47→09:41)
[2020-03-12] MEDS: Sodium Chloride 0.9% 10 ML Syringe FLUSH PRN ×2 (03:47→03:53)
[2020-03-12] MEDS: Pantoprazole 40 MG Tab.CR PO SCH (05:52)
[2020-03-12 07:16] LABS: ANION GAP 8.7 mEq/L (7-13)
[2020-03-12] MEDS: Budesonide 0.5 MG/2 ML Neb Susp NEB SCH (07:44)
[2020-03-12] MEDS ORDERED: Hydroxyurea 500 MG Cap PO SCH (08:00)
[2020-03-12] MEDS: Furosemide 40 MG Tab PO SCH (09:42)
[2020-03-12] MEDS: Diltiazem 180 MG Cap.CD PO SCH (09:43)
[2020-03-12] MEDS: Lidocaine 5% 700 MG Patch TOP SCH (09:43)
[2020-03-12] MEDS: Metoprolol Tartrate 50 MG Tab PO SCH (09:45)
[2020-03-12] MEDS: Phosphorus #1 250 MG Tab PO SCH (09:46)
[2020-03-12] MEDS: Clopidogrel 75 MG Tab PO SCH (09:46)
--- NOTE | 2020-03-12 10:15 | PCM.DCSUM1 ---
Discharge Summary - Hospital Course Free Text/Narrative:: 79-year-old gentleman with a history of COPD, home oxygen dependent at 3 L per nasal cannula during the day and CPAP with 5 L at night The patient was recently hospitalized and underwent cryoablation of renal lesion. He has a history of chronic lower extremity edema. The patient presented with increasing shortness of breath that started the day prior to admission. No associated fever, cough. Was c/o left sided chest pain with cough Acute on chronic hypoxemic respiratory failure by discharge the patient is back to his usual oxygen need Acute COPD exacerbation treated with steroids Pulmicort, DuoNeb scheduled and as needed resume home nebulizers and inhalers Obstructive sleep apnea Continue CPAP at night Leukocytosis Might relate to pulmonary infection for now negative sputum culture, blood culture This might relate to recent cryoablation as well likely related to steroids For now empirically treat with levofloxacin taper steroids Significant lower extremity edema BNP slightly high Will continue to treat with diuretics Left sided CP - pleuritic Ekg: Aflutter likely musculoskeletal afib control rate with metoprolol, cardizem Anticoagulation for atrial fibrillation Continue xarelto Matt Use cpap at night Diagnosis: Stroke: No - Discharge Data Discharge Date: 03/12/20 Discharge Disposition: Home, Self-Care 01 Condition: Good - Referral to Home Health Primary Care Physician: Molly Ferguson NP - Discharge Diagnosis/Problem(s) (1) Hypoxemia SNOMED Code(s): 586672755 ICD Code: R09.02 - HYPOXEMIA Status: Acute Current Visit: Yes (2) Afib SNOMED Code(s): 32896424 ICD Code: I48.91 - UNSPECIFIED ATRIAL FIBRILLATION Status: Acute Current Visit: Yes (3) Leukocytosis SNOMED Code(s): 997927524, 212255045 ICD Code: D72.829 - ELEVATED WHITE BLOOD CELL COUNT, UNSPECIFIED Status: Acute Current Visit: Yes (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 SNOMED Code(s): 46093515, 56785362, 40569101 ICD Code: D30.02 - BENIGN NEOPLASM OF LEFT KIDNEY Status: Acute Current Visit: Yes (5) Acute exacerbation of chronic obstructive pulmonary disease (COPD) SNOMED Code(s): 003584897 ICD Code: J44.1 - CHRONIC OBSTRUCTIVE PULMONARY DISEASE W (ACUTE) EXACERBATION Status: Acute Current Visit: No (6) Renal cell carcinoma SNOMED Code(s): 812666832, 082564021 ICD Code: C64.9 - MALIGNANT NEOPLASM OF UNSP KIDNEY, EXCEPT RENAL PELVIS Status: Acute Current Visit: Yes - Patient Instructions Diet: Heart Healthy Diet Activity: As Tolerated - Discharge Plan *PRESCRIPTION DRUG MONITORING PROGRAM REVIEWED*: Not Applicable *COPY OF PRESCRIPTION DRUG MONITORING REPORT IN PATIENT ANNELISE: Not Applicable Prescriptions/Med Rec: Levofloxacin 500 mg PO DAILY #7 tablet predniSONE [Prednisone] 10 mg PO DAILY #31 tablet Home Medications: Home Meds Albuterol Sulfate [Albuterol Sulfate Hfa] 2 puff INH Q6H PRN 03/10/20 [History] Arformoterol [Brovana] 15 mcg INH BID 03/10/20 [History] Budesonide [Pulmicort] 0.5 mg IH BID 03/10/20 [History] Bumetanide [Bumex] 1 mg PO DAILY 03/10/20 [History] Cetirizine HCl [Zyrtec] 10 mg PO DAILY 03/10/20 [History] Cholecalciferol (Vitamin D3) [Vitamin D3] 400 unit PO BID 03/10/20 [History] Clopidogrel [Plavix] 75 mg PO DAILY 03/10/20 [History] Diltiazem HCl [Diltiazem 24Hr Cd] 180 mg PO DAILY 03/10/20 [History] Hydroxyurea [Hydrea] 500 mg PO .MON.WED.Thu03/10/20 [History] Ipratropium/Albuterol Sulfate [Iprat-Albut 0.5-3(2.5) mg/3 ml] 3 ml IH Q4H PRN 03/10/20 [History] Ketotifen [Ketotifen 0.025% Ophth Soln] 1 drop EYEBOTH BID 03/10/20 [History] Lactobacillus 3/Fos/Pantethine [Probiotic & Acidophilus] 1 cap PO DAILY 03/10/20 [History] Magnesium Oxide 420 mg PO DAILY 03/10/20 [History] Metoprolol Tartrate 50 mg PO BID 03/10/20 [History] Nicotine Polacrilex [Nicotine Lozenge] 2 mg BC Q2H PRN 03/10/20 [History] Nitroglycerin [Nitrostat] 0.4 mg SL ASDIRECTED PRN 03/10/20 [History] Omeprazole 20 mg PO BIDAC 03/10/20 [History] Polyvinyl Alcohol [Artificial Tears] 1 drop OP Q4H PRN 03/10/20 [History] Rivaroxaban [Xarelto] 20 mg PO DAILY 03/10/20 [History] Rosuvastatin [Crestor] 10 mg PO DAILY 03/10/20 [History] Tiotropium [Spiriva HandiHaler] 18 mcg INH DAILY 03/10/20 [History] Levofloxacin 500 mg PO DAILY #7 tablet 03/12/20 [Rx] predniSONE [Prednisone] 10 mg PO DAILY #31 tablet 03/12/20 [Rx] Oxygen Therapy Mode: Nasal Cannula Patient Handouts: Chronic Obstructive Pulmonary Disease Exacerbation, [id number] Referrals: Molly Ferguson NP [Primary Care Provider] - (in 3-4 days) - Discharge Summary/Plan Comment DC Time >30 min.: No - General Info Date of Service: 03/12/20 Functional Status: Reports: Pain Controlled, Tolerating Diet - Review of Systems General: Denies: Fever, Weakness Pulmonary: Reports: Shortness of Breath (at baseline) Cardiovascular: Reports: Other (left-sided reproducible lower chest wall pain) Genitourinary: Denies: Dysuria Neurological: Denies: Confusion - Patient Data Vitals - Most Recent: Last Vital Signs Temp 96.6 F L 03/12/20 08:28 Pulse 71 03/12/20 09:45 Resp 20 03/12/20 08:28 BP 118/75 03/12/20 09:45 Pulse Ox 93 L 03/12/20 08:28 Weight - Most Recent: 238 lb I&O - Last 24 hours: Intake & Output 03/11/20 03/12/20 03/12/20 22:59 06:59 14:59 Intake Total 360 500 Balance 360 500 Lab Results - Last 24 hrs: Laboratory Results - last 24 hr 03/12/20 03/12/20 Range/Units 06:03 06:03 WBC 23.7 H (5.0-10.0) 10^3/uL RBC 4.51 L (4.6-6.2) 10^6/uL Hgb 13.4 L (14.0-18.0) g/dL Hct 42.5 (40.0-54.0) % MCV 94.2 (80-100) fL MCH 29.7 (27.0-34.0) pg MCHC 31.5 L (33.0-35.0) g/dL Plt Count 295 (150-450) 10^3/uL Neut % (Auto) 93.1 H (42.2-75.2) % Lymph % (Auto) 2.7 L (20.5-50.1) % Perry % (Auto) 4.1 (2-8) % Eos % (Auto) 0.0 L (1.0-3.0) % Baso % (Auto) 0.1 (0.0-1.0) % Add Manual Diff Yes Neutrophils % (Manual) 86 H (42-75) % Band Neutrophils % 4 % Lymphocytes % (Manual) 6 L (20-50) % Monocytes % (Manual) 4 (2-8) % Sodium 138 (136-145) mmol/L Potassium 3.7 (3.5-5.1) mmol/L Chloride 98 (98-107) mmol/L Carbon Dioxide 35 H (21-32) mmol/L Anion Gap 8.7 (7-13) mEq/L BUN 33 H (7-18) mg/dL Creatinine 1.44 H (0.70-1.30) mg/dL Est Cr Clr Drug Dosing 45.76 mL/min Estimated GFR (MDRD) 48 Glucose 212 H (74-99) mg/dL Calcium 9.1 (8.5-10.1) mg/dL VERONICA Results - Last 24 hrs: Microbiology 03/10/20 09:37 Aerobic Blood Culture - Preliminary Blood - Arm, Right NO GROWTH AFTER 2 DAYS Anaerobic Blood Culture - Preliminary NO GROWTH AFTER 2 DAYS 03/10/20 09:37 Aerobic Blood Culture - Preliminary Blood - Arm, Left NO GROWTH AFTER 2 DAYS Anaerobic Blood Culture - Preliminary NO GROWTH AFTER 2 DAYS 03/11/20 01:15 Gram Stain - Final Sputum - Expectorated Sputum Culture - Preliminary NORMAL RESPIRATORY SHERIF 1 DAY Med Orders - Current: Current Medications Acetaminophen (Tylenol) 650 mg PO Q4H PRN PRN Reason: Pain (Mild 1-3)/fever Last Admin: 03/11/20 12:59 Dose: 650 mg Documented by: Albuterol/Ipratropium (Duoneb 3.0-0.5 Mg/3 Ml) 3 ml NEB Q6HRRT [facility] Last Admin: 03/12/20 07:43 Dose: 3 ml Documented by: Atorvastatin Calcium (Lipitor) 10 mg PO BEDTIME [facility] Last Admin: 03/11/20 22:07 Dose: 10 mg Documented by: Budesonide (Pulmicort) 0.5 mg NEB BIDRT [facility] Last Admin: 03/12/20 07:44 Dose: 0.5 mg Documented by: Clopidogrel Bisulfate (Plavix) 75 mg PO DAILY [facility] Last Admin: 03/12/20 09:46 Dose: 75 mg Documented by: Diltiazem HCl (Cardizem Cd) 180 mg PO DAILY [facility] Last Admin: 03/12/20 09:43 Dose: 180 mg Documented by: Docusate Sodium (Colace) 100 mg PO BID PRN PRN Reason: Constipation Furosemide (Lasix) 40 mg PO BIDDIURETIC [facility] Last Admin: 03/12/20 09:42 Dose: 40 mg Documented by: Hydroxyurea (Hydrea) 500 mg PO MoWeFr@0800 [facility] Last Admin: 03/12/20 09:42 Dose: 500 mg Documented by: Levofloxacin/Dextrose 750 mg/ (Premix) 150 mls @ 100 mls/hr IV Q48H [facility] Lidocaine (Lidoderm 5%) 700 mg TOP DAILY [facility] Last Admin: 03/12/20 09:43 Dose: 700 mg Documented by: Methylprednisolone Sodium Succinate (Solu-Medrol) 40 mg IVPUSH Q8H [facility] Last Admin: 03/12/20 09:41 Dose: 40 mg Documented by: Metoprolol Tartrate (Lopressor) 50 mg PO BID [facility] Last Admin: 03/12/20 09:45 Dose: 50 mg Documented by: Miscellaneous Information (Remove Patch) 1 ea TRDERM Q24H [facility] Last Admin: 03/11/20 22:08 Dose: Not Given Documented by: Oxycodone HCl (Oxycodone) 5 mg PO Q6H PRN PRN Reason: moderate pain Last Admin: 03/11/20 22:17 Dose: 5 mg Documented by: Pantoprazole Sodium (Protonix) 40 mg PO BIDAC [facility] Last Admin: 03/12/20 05:52 Dose: 40 mg Documented by: Rivaroxaban (Xarelto) 15 mg PO WITHDINNER [facility] Last Admin: 03/11/20 17:32 Dose: 15 mg Documented by: Sodium Chloride (Saline Flush) 10 ml FLUSH ASDIRECTED PRN PRN Reason: Keep Vein Open Last Admin: 03/12/20 03:53 Dose: 10 ml Documented by: Temazepam (Restoril) 15 mg PO BEDTIME PRN PRN Reason: Sleep Last Admin: 03/11/20 22:25 Dose: 15 mg Documented by: Tiotropium [place] (Spiriva Handihaler) 18 mcg INH BID [facility] Last Admin: 03/12/20 09:48 Dose: 18 mg Documented by: Discontinued Medications Albuterol/Ipratropium (Duoneb 3.0-0.5 Mg/3 Ml) 3 ml NEB ONETIME ONE Stop: 03/10/20 09:51 Last Admin: 03/10/20 09:57 Dose: 3 ml Documented by: Dexamethasone (Decadron) 6 mg IVPUSH ONETIME ONE Stop: 03/10/20 09:13 Last Admin: 03/10/20 09:57 Dose: 6 mg Documented by: Furosemide (Lasix) 40 mg IVPUSH NOW ONE Stop: 03/10/20 10:13 Last Admin: 03/10/20 10:27 Dose: 40 mg Documented by: Furosemide (Lasix) 40 mg PO BID [facility] Last Admin: 03/10/20 21:18 Dose: Not Given Documented by: Levofloxacin/Dextrose 750 mg/ (Premix) 150 mls @ 100 mls/hr IV ONETIME ONE Stop: 03/10/20 11:20 Last Infusion: 03/10/20 11:36 Dose: Infused Documented by: Levofloxacin/Dextrose 750 mg/ (Premix) 150 mls @ 100 mls/hr IV Q24H [facility] Last Admin: 03/10/20 15:34 Dose: Not Given Documented by: Magnesium Oxide (Magnesium Oxide) 250 mg PO BIDMEALS [facility] Stop: 03/12/20 08:01 Last Admin: 03/12/20 09:43 Dose: 250 mg Documented by: Metoprolol Tartrate (Lopressor) 25 mg PO BID [facility] Last Admin: 03/11/20 10:53 Dose: 25 mg Documented by: Metoprolol Tartrate (Lopressor) 25 mg PO ONETIME ONE Stop: 03/11/20 12:15 Last Admin: 03/11/20 12:31 Dose: 25 mg Documented by: Non-Formulary Medication (Rosuvastatin [Crestor]) 5 mg PO DAILY [facility] Sodium Chloride (Saline Flush) 10 ml FLUSH ASDIRECTED PRN PRN Reason: Keep Vein Open Last Admin: 03/10/20 09:57 Dose: 10 ml Documented by: Sodium Phosphate (Neutra-Phos) 250 mg PO QID [facility] Stop: 03/12/20 09:01 Last Admin: 03/12/20 09:46 Dose: 250 mg Documented by: - Exam Quality Assessment: Reports: Supplemental Oxygen General: Reports: Alert, Oriented Neck: Reports: Supple Lungs: Reports: Normal Respiratory Effort, Decreased Breath Sounds Cardiovascular: Reports: Irregular Rhythm GI/Abdominal Exam: Normal Bowel Sounds, Soft, Non-Tender Extremities: Pedal Edema (1+) Skin: Reports: Warm Psy/Mental Status: Reports: Alert, Normal Affect, Normal Mood
[2020-03-12] MEDS ORDERED: Levofloxacin/Dextrose 5%-Water 750 MG in Premix Bag 1 BAG IV SCH (13:00)
== END 2020-03-12 11:10 | disposition home or self-care (01) | DRG 189 ==
LOC: DL.ED 08:56 → DL.MS 10:58 → UNDOADMIN 12:23 → DL.MS 12:23
PROVIDERS: ADMIT Internal Medicine; ATTEND Internal Medicine
PROC: 5A09357 Assistance with Respiratory Ventilation, Less than 24 Consecutive Hours, Continuous Positive Airway Pressure (ICD-10-PCS; principal; 2020-03-10)
PROC: 8E0ZXY6 Isolation (ICD-10-PCS; 2020-03-10)
DX: J96.21 Acute and chronic respiratory failure with hypoxia (principal); J44.1 Chronic obstructive pulmonary disease with (acute) exacerbation; C64.9 Malignant neoplasm of unspecified kidney, except renal pelvis; G47.33 Obstructive sleep apnea (adult) (pediatric); D72.829 Elevated white blood cell count, unspecified; R60.0 Localized edema; Z20.828 Contact with and (suspected) exposure to other viral communicable diseases; I11.0 Hypertensive heart disease with heart failure; I50.9 Heart failure, unspecified; E11.9 Type 2 diabetes mellitus without complications; I48.91 Unspecified atrial fibrillation; D30.02 Benign neoplasm of left kidney; Z79.51 Long term (current) use of inhaled steroids; Z79.52 Long term (current) use of systemic steroids; Z79.899 Other long term (current) drug therapy; Z79.01 Long term (current) use of anticoagulants; Z79.2 Long term (current) use of antibiotics; I25.2 Old myocardial infarction; Z95.5 Presence of coronary angioplasty implant and graft; Z87.891 Personal history of nicotine dependence; Z99.81 Dependence on supplemental oxygen
CPT/HCPCS: 36415; 71045; 80053; 81001; 82728; 83605; 83615; 83880; 84484; 85025; 85379; 85610; 85730; 86140; 87040 ×2; 87635; 87804 ×2; 93005; 94640; J1100; J1940; J1956; 80048; 83735; 84100; 84145; 87070; 87205; 94010; 94660; 94667; 94760; 96365; 96375; 99285-25; A9270-GY; J2920; J7620-GY; U0002

== ENCOUNTER 2020-03-16 15:17 | Emergency (ER) | payer OTHER, MEDICARE ==
--- NOTE | 2020-03-16 16:17 | CR ---
PROCEDURE INFORMATION: Exam: XR Chest, 2 Views Exam date and time: 03/16/2020 3:59 PM Age: 79 years old Clinical indication: Shortness of breath; Additional info: Chest pain TECHNIQUE: Imaging protocol: XR of the chest Views: 2 views. COMPARISON: CR Chest 1V Frontal 03/10/2020 10:09 AM FINDINGS: Lungs: The lungs are hyperinflated, consistent with underlying small airways disease. Atelectatic and/or early infiltrative changes noted within both lung bases. Pleural space: Trace bilateral pleural effusions. Heart/Mediastinum: Unremarkable. No cardiomegaly. Bones/joints: Unremarkable. IMPRESSION: 1. The lungs are hyperinflated, consistent with underlying small airways disease. 2. Atelectatic and/or early infiltrative changes noted within both lung bases. 3. Trace bilateral pleural effusions.
--- NOTE | 2020-03-16 16:56 | EDM.PDOC ---
<Helen Dugan - Last Filed: 03/16/20 17:37> ED HPI GENERAL MEDICAL PROBLEM - General Chief Complaint: Cardiovascular Problem Stated Complaint: HEART PROBLEMS Time Seen by Provider: 03/16/20 16:05 Source of Information: Reports: Patient, RN, RN Notes Reviewed History Limitations: Reports: No Limitations - History of Present Illness INITIAL COMMENTS - FREE TEXT/NARRATIVE: 79 year old male reports to ED. states he was sent by his [facility] provider as his blood pressure was elevated and his Afib was "acting up." sates he had surgery for renal cancer in [place] last Thursday (03/09) and was sent home, states when he woke up the next morning, he felt horrible and when he arrived at the ER he was so lethargic that he became incontinent. Was subsequently hospitalized. reports today that his SOB is not any different than his baseline. reports chest discomfort that feels like there is "something in there or a broken rib that clicks when I move or breath." reports pain 10/11. denies fever, chills, n/v/d. denies dysuria, hematochezia. LBM today. Left Chest Pain Score (Numeric/FACES): 3 - Related Data Allergies Allergy/AdvReac Type Severity Reaction Status Date / Time No Known Allergies Allergy Verified 03/10/20 09:03 Home Meds: Home Meds Albuterol Sulfate [Albuterol Sulfate Hfa] 2 puff INH Q6H PRN 03/10/20 [History] Arformoterol [Brovana] 15 mcg INH BID 03/10/20 [History] Budesonide [Pulmicort] 0.5 mg IH BID 03/10/20 [History] Bumetanide [Bumex] 1 mg PO DAILY 03/10/20 [History] Cetirizine HCl [Zyrtec] 10 mg PO DAILY 03/10/20 [History] Cholecalciferol (Vitamin D3) [Vitamin D3] 400 unit PO BID 03/10/20 [History] Clopidogrel [Plavix] 75 mg PO DAILY 03/10/20 [History] Diltiazem HCl [Diltiazem 24Hr Cd] 180 mg PO DAILY 03/10/20 [History] Hydroxyurea [Hydrea] 500 mg PO .THU.[id number].Thu03/10/20 [History] Ipratropium/Albuterol Sulfate [Iprat-Albut 0.5-3(2.5) mg/3 ml] 3 ml IH Q4H PRN 03/10/20 [History] Ketotifen [Ketotifen 0.025% Ophth Soln] 1 drop EYEBOTH BID 03/10/20 [History] Lactobacillus 3/Fos/Pantethine [Probiotic & Acidophilus] 1 cap PO DAILY 03/10/20 [History] Magnesium Oxide 420 mg PO DAILY 03/10/20 [History] Metoprolol Tartrate 50 mg PO BID 03/10/20 [History] Nicotine Polacrilex [Nicotine Lozenge] 2 mg BC Q2H PRN 03/10/20 [History] Nitroglycerin [Nitrostat] 0.4 mg SL ASDIRECTED PRN 03/10/20 [History] Omeprazole 20 mg PO BIDAC 03/10/20 [History] Polyvinyl Alcohol [Artificial Tears] 1 drop OP Q4H PRN 03/10/20 [History] Rivaroxaban [Xarelto] 20 mg PO DAILY 03/10/20 [History] Rosuvastatin [Crestor] 10 mg PO DAILY 03/10/20 [History] Tiotropium [Spiriva HandiHaler] 18 mcg INH DAILY 03/10/20 [History] Levofloxacin 500 mg PO DAILY #7 tablet 03/12/20 [Rx] predniSONE [Prednisone] 10 mg PO DAILY #31 tablet 03/12/20 [Rx] Past Medical History Cardiovascular History: Reports: MD Respiratory History: Reports: COPD Gastrointestinal History: Reports: None Genitourinary History: Reports: Other (See Below) Other Genitourinary History: chrioblast? Musculoskeletal History: Reports: Fracture Neurological History: Reports: None Psychiatric History: Reports: Addiction Endocrine/Metabolic History: Reports: Obesity/BMI 30+ Hematologic History: Reports: Polycythemia Oncologic (Cancer) History: Reports: None Dermatologic History: Reports: None - Infectious Disease History Infectious Disease History: Reports: Chicken Pox, Measles, Mumps, Shingles - Past Surgical History Head Surgeries/Procedures: Reports: None Cardiovascular Surgical History: Reports: Coronary Artery Stent Male Surgical History: Reports: Other (See Below) Musculoskeletal Surgical History: Reports: Arthroscopic Knee, Carpal Tunnel Social & Family History - Family History Family Medical History: No Pertinent Family History - Tobacco Use Tobacco Use Status *Q: Current Every Day Tobacco User Years of Tobacco use: 52 Packs/Tins Daily: 0.5 - Caffeine Use Caffeine Use: Reports: Coffee, Tea - Recreational Drug Use Recreational Drug Use: No - Living Situation & Occupation Occupation: Retired ED ROS GENERAL - Review of Systems Review Of Systems: Comprehensive ROS is negative, except as noted in HPI. ED EXAM, GENERAL - Physical Exam Exam: See Below Exam Limited By: No Limitations General Appearance: Alert, WD/WN, No Apparent Distress Eye Exam: Bilateral Eye: EOMI, Normal Inspection Ears: Normal External Exam, Hearing Grossly Normal Nose: Normal Inspection Throat/Mouth: Normal Inspection, No Airway Compromise Head: Atraumatic, Normocephalic Neck: Normal Inspection, Full Range of Motion Respiratory/Chest: No Respiratory Distress, Lungs Clear, Other (inspiratory click heard posteriorly to left lung) Cardiovascular: Normal Peripheral Pulses, Irregularly Irregular, Other (EKG reveals A Flutter) GI/Abdominal: Normal Bowel Sounds, Non-Tender (Male) Exam: Deferred Rectal (Males) Exam: Deferred Back Exam: Normal Inspection, Full Range of Motion Extremities: Normal Inspection, Non-Tender, Pedal Edema (2-3+ pitting) Neurological: Alert, Oriented, Normal Cognition, Normal Gait Psychiatric: Normal Affect, Normal Mood Skin Exam: Warm, Dry, Intact Lymphatic: No Adenopathy Departure - Departure Disposition: Home, Self-Care 01 Clinical Impression: Atrial flutter Qualifiers: Atrial flutter type: unspecified Qualified Code(s): I48.92 - Unspecified atrial flutter Hypertensive heart disease Qualifiers: Heart failure presence: unspecified whether heart failure present Qualified Code(s): I11.9 - Hypertensive heart disease without heart failure Instructions: Atrial Flutter, Hypertension, Adult, [id number] Referrals: PCP,None [Primary Care Provider] - Forms: ED Department Discharge Additional Instructions: Follow-up as scheduled Thursday at the [facility]. Return to the ER at any time over the weekend if symptoms worsen. Sepsis Event Note (ED) - Evaluation Sepsis Screening Result: No Definite Risk <Simran Small - Last Filed: 03/20/20 10:49> Course - Vital Signs Last Recorded V/S: Last Vital Signs Temp 97.4 F 03/16/20 15:50 Pulse 139 H 03/16/20 15:50 Resp 18 03/16/20 15:50 BP 97/73 03/16/20 15:50 Pulse Ox 90 L 03/16/20 15:50 - Orders/Labs/Meds Labs: Laboratory Tests 03/16/20 03/16/20 03/16/20 Range/Units 16:30 16:30 16:30 WBC 19.0 H (5.0-10.0) 10^3/uL RBC 5.12 (4.6-6.2) 10^6/uL Hgb 14.9 D (14.0-18.0) g/dL Hct 45.9 (40.0-54.0) % MCV 89.6 D (80-100) fL MCH 29.1 (27.0-34.0) pg MCHC 32.5 L (33.0-35.0) g/dL Plt Count 308 (150-450) 10^3/uL Neut % (Auto) 89.2 H (42.2-75.2) % Lymph % (Auto) 5.8 L (20.5-50.1) % [place] % (Auto) 4.2 (2-8) % Eos % (Auto) 0.5 L (1.0-3.0) % Baso % (Auto) 0.3 (0.0-1.0) % Add Manual Diff Yes Neutrophils % (Manual) 90 H (42-75) % Lymphocytes % (Manual) 5 L (20-50) % Monocytes % (Manual) 2 (2-8) % Eosinophils % (Manual) 2 (1-3) % Myelocytes % 1 Giant Platelets Few Poikilocytosis 1+ slight Anisocytosis 1+ slight PT 12.1 H (9.0-12.0) SEC INR 1.3 H (0.9-1.2) Sodium 139 (136-145) mmol/L Potassium 4.1 (3.5-5.1) mmol/L Chloride 100 (98-107) mmol/L Carbon Dioxide 34 H (21-32) mmol/L Anion Gap 9.1 (7-13) mEq/L BUN 27 H (7-18) mg/dL Creatinine 1.39 H (0.70-1.30) mg/dL Est Cr Clr Drug Dosing 47.40 mL/min Estimated GFR (MDRD) 50 BUN/Creatinine Ratio 19.4 (No establ ref range) Glucose 131 H (74-99) mg/dL Calcium 8.6 (8.5-10.1) mg/dL Total Bilirubin 0.5 (0.2-1.0) mg/dL AST 11 L (15-37) U/L ALT 23 (16-63) U/L Alkaline Phosphatase 73 (46-116) U/L Troponin I < 0.017 (0.000-0.056) ng/mL C-Reactive Protein 3.1 H (0.0-0.9) mg/dL Total Protein 6.2 L (6.4-8.2) g/dL Albumin 3.0 L (3.4-5.0) g/dL Globulin 3.2 Albumin/Globulin Ratio 0.94 - Re-Assessments/Exams Free Text/Narrative Re-Assessment/Exam: 03/20/20 10:49 I personally performed or re-performed the physical examination and medical decision making. I have verified all student documentation or findings, including history, physical exam and/or medical decision making. Departure - Departure Time of Disposition: 18:24 Reason for Transfer *Q: Other Condition: Good
[2020-03-16 17:02] LABS: ANION GAP 9.1 mEq/L (7-13); CHLORIDE,CL 100 mmol/L (98-107); SODIUM,NA 139 mmol/L (136-145)
--- NOTE | 2020-03-16 18:08 | CT ---
PROCEDURE INFORMATION: Exam: CT Chest Without Contrast Exam date and time: 03/16/2020 5:36 PM Age: 79 years old Clinical indication: Shortness of breath; Additional info: Chest pain TECHNIQUE: Imaging protocol: Computed tomography of the chest without contrast. Radiation optimization: All CT scans at this facility use at least one of these dose optimization techniques: automated exposure control; mA and/or kV adjustment per patient size (includes targeted exams where dose is matched to clinical indication); or iterative reconstruction. COMPARISON: CR Chest 2V 03/16/2020 3:59 PM FINDINGS: Lungs: The lungs are hyperinflated, consistent with underlying small airways disease. Atelectatic and/or early infiltrative changes noted within the lung bases. Pleural space: Small right pleural effusion. There is no evidence of pneumothorax. Heart: There is moderate atherosclerotic calcification of the coronary arteries. Pericardial effusion is present. Aorta: Unremarkable. No aortic aneurysm. Lymph nodes: Unremarkable. No enlarged lymph nodes. Bones/joints: The thoracic spine demonstrates mild degenerative changes at multiple levels. Soft tissues: There is nonspecific gynecomastia. IMPRESSION: 1. The lungs are hyperinflated, consistent with underlying small airways disease. 2. Atelectatic and/or early infiltrative changes noted within the lung bases. 3. Small right pleural effusion. 4. Pericardial effusion is present.
== END 2020-03-16 18:22 | disposition home or self-care (01) ==
LOC: DL.ED 15:17
DX: I48.92 Unspecified atrial flutter (principal); I11.9 Hypertensive heart disease without heart failure; J44.9 Chronic obstructive pulmonary disease, unspecified; I25.2 Old myocardial infarction; F17.210 Nicotine dependence, cigarettes, uncomplicated; E66.9 Obesity, unspecified; Z79.899 Other long term (current) drug therapy; Z79.02 Long term (current) use of antithrombotics/antiplatelets; Z79.01 Long term (current) use of anticoagulants; Z95.5 Presence of coronary angioplasty implant and graft
CPT/HCPCS: 36415; 71046; 71250; 80053; 84484; 85025; 85610; 86140; 93005; 99283; 99285-25

== ENCOUNTER 2020-09-20 13:46 | Emergency (ER) | payer OTHER, MEDICARE ==
[2020-09-20] MEDS ORDERED: Diltiazem 25 MG/5 ML SDV IVPUSH ONE (14:11)
--- NOTE | 2020-09-20 14:19 | EDM.PDOC ---
ED HPI GENERAL MEDICAL PROBLEM - General Chief Complaint: Cardiovascular Problem Stated Complaint: [facility] HE[facility] RATE 138 Time Seen by Provider: 09/20/20 14:12 Source of Information: Reports: Patient History Limitations: Reports: No Limitations - History of Present Illness INITIAL COMMENTS - FREE TEXT/NARRATIVE: This 80 yo male patient reports to [facility] let [facility] know that his heart rate was elevated. The patient reports he currently does not have any chest pain or additional shortness of breath. The patient reports he has a history of atrial fibrillation and atrial flutter. The patient has been seen numerous times for these things in the past. The patient reports he has been taking his medications as prescribed. Onset: Today Duration: Constant Location: Reports: Chest Quality: Reports: Other Severity: Moderate Improves with: Reports: None Worsens with: Reports: None Context: Reports: Other Associated Symptoms: Reports: Confusion (mild), Nausea/Vomiting - Related Data Allergies Allergy/AdvReac Type Severity Reaction Status Date / Time No Known Allergies Allergy Verified 09/20/20 14:01 Home Meds: Home Meds Albuterol Sulfate [Albuterol Sulfate Hfa] 2 puff INH Q6H PRN 03/10/20 [History] Arformoterol [Brovana] 15 mcg INH BID 03/10/20 [History] Budesonide [Pulmicort] 0.5 mg IH BID 03/10/20 [History] Bumetanide [Bumex] 1 mg PO DAILY 03/10/20 [History] Cetirizine HCl [Zyrtec] 10 mg PO DAILY 03/10/20 [History] Cholecalciferol (Vitamin D3) [Vitamin D3] 400 unit PO BID 03/10/20 [History] Clopidogrel [Plavix] 75 mg PO DAILY 03/10/20 [History] Diltiazem HCl [Diltiazem 24Hr Cd] 180 mg PO DAILY 03/10/20 [History] Hydroxyurea [Hydrea] 500 mg PO .THU.WED.Thu03/10/20 [History] Ipratropium/Albuterol Sulfate [Iprat-Albut 0.5-3(2.5) mg/3 ml] 3 ml IH Q4H PRN 03/10/20 [History] Ketotifen [Ketotifen 0.025% Ophth Soln] 1 drop EYEBOTH BID 03/10/20 [History] Lactobacillus 3/Fos/Pantethine [Probiotic & Acidophilus] 1 cap PO DAILY 03/10/20 [History] Magnesium Oxide 420 mg PO DAILY 03/10/20 [History] Metoprolol Tartrate 50 mg PO BID 03/10/20 [History] Nicotine Polacrilex [Nicotine Lozenge] 2 mg BC Q2H PRN 03/10/20 [History] Nitroglycerin [Nitrostat] 0.4 mg SL ASDIRECTED PRN 03/10/20 [History] Omeprazole 20 mg PO BIDAC 03/10/20 [History] Polyvinyl Alcohol [Artificial Tears] 1 drop OP Q4H PRN 03/10/20 [History] Rivaroxaban [Xarelto] 20 mg PO DAILY 03/10/20 [History] Rosuvastatin [Crestor] 10 mg PO DAILY 03/10/20 [History] Tiotropium [Spiriva HandiHaler] 18 mcg INH DAILY 03/10/20 [History] Levofloxacin 500 mg PO DAILY #7 tablet 03/12/20 [Rx] predniSONE [Prednisone] 10 mg PO DAILY #31 tablet 03/12/20 [Rx] Past Medical History Cardiovascular History: Reports: Afib, Heart Failure, [place] Respiratory History: Reports: COPD Gastrointestinal History: Reports: None Genitourinary History: Reports: Other (See Below) Other Genitourinary History: chrioblast? Musculoskeletal History: Reports: Fracture Neurological History: Reports: None Psychiatric History: Reports: Addiction Endocrine/Metabolic History: Reports: Obesity/BMI 30+ Hematologic History: Reports: Polycythemia Oncologic (Cancer) History: Reports: Renal Dermatologic History: Reports: None - Infectious Disease History Infectious Disease History: Reports: Chicken Pox, Measles, Mumps, Shingles - Past Surgical History Head Surgeries/Procedures: Reports: None Cardiovascular Surgical History: Reports: Coronary Artery Stent Musculoskeletal Surgical History: Reports: Arthroscopic Knee, Carpal Tunnel Social & Family History - Family History Family Medical History: No Pertinent Family History - Tobacco Use Tobacco Use Status *Q: Former Tobacco User Years of Tobacco use: 55 Used Tobacco, but Quit: Yes Month/Year Tobacco Last Used: 2014 - Caffeine Use Caffeine Use: Reports: Coffee, Tea - Recreational Drug Use Recreational Drug Use: No - Living Situation & Occupation Occupation: Retired ED ROS GENERAL - Review of Systems Review Of Systems: Comprehensive ROS is negative, except as noted in HPI. ED EXAM, GENERAL - Physical Exam Exam: See Below Exam Limited By: No Limitations General Appearance: Alert, WD/WN, Mild Distress Eye Exam: Bilateral Eye: EOMI, Normal Inspection, PERRL Ears: Normal External Exam, Normal Canal, Hearing Grossly Normal, Normal TMs Nose: Normal Inspection, Normal Mucosa, No Blood Throat/Mouth: Normal Inspection, Normal Lips, Normal Teeth, Normal Gums, Normal Oropharynx, Normal Voice, No Airway Compromise Head: Atraumatic, Normocephalic Neck: Normal Inspection, Supple, Non-Tender, Full Range of Motion Respiratory/Chest: No Respiratory Distress, Lungs Clear, Normal Breath Sounds, No Accessory Muscle Use, Chest Non-Tender Cardiovascular: No Edema, No Gallop, No JVD, No Murmur, No Rub, Tachycardia GI/Abdominal: Normal Bowel Sounds, Soft, Non-Tender, No Organomegaly, No Distention, No Abnormal Bruit, No Mass (Male) Exam: Deferred Rectal (Males) Exam: Deferred Back Exam: Normal Inspection, Full Range of Motion, NT Extremities: Normal Inspection, Normal Range of Motion, Non-Tender, Normal Capillary Refill, No Pedal Edema Neurological: Alert, Oriented, CN II-XII Intact, Normal Cognition, Normal Gait, Normal Reflexes, No Motor/Sensory Deficits Psychiatric: Normal Affect, Normal Mood Skin Exam: Warm, Dry, Intact, Normal Color, No Rash Lymphatic: No Adenopathy #1 Interpretation EKG Date: 09/20/20 Time: 13:59 Rhythm: A-Flutter Rate (Beats/Min): 138 [place]: Normal P-Wave: Present QRS: Normal ST-T: Normal QT: Normal Comparison: Other: (The patient's previous EKG's demonstrate both A fib and A flutter at various rates.) Course - Vital Signs Last Recorded V/S: Last Vital Signs Temp 97.3 F 09/20/20 14:02 Pulse 138 H 09/20/20 14:02 Resp 20 09/20/20 14:02 BP 119/82 09/20/20 14:02 Pulse Ox 95 09/20/20 14:02 - Orders/Labs/Meds Orders: Active Orders 24 hr Category Date Time Status EKG Documentation Completion [RC] STAT Care 09/20/20 13:57 Ordered CULTURE BLOOD [BC] Stat Lab 09/20/20 14:27 Ordered CULTURE BLOOD [BC] Stat Lab 09/20/20 14:27 Ordered Blood Culture x2 Reflex Set [OM.PC] Stat Oth 09/20/20 14:27 Ordered Labs: Laboratory Tests 09/20/20 09/20/20 09/20/20 Range/Units 14:01 14:01 14:01 WBC 21.1 H (5.0-10.0) 10^3/uL RBC 6.77 H (4.6-6.2) 10^6/uL Hgb 16.7 D (14.0-18.0) g/dL Hct 54.7 H (40.0-54.0) % MCV 80.8 D (80-100) fL MCH 24.7 L (27.0-34.0) pg MCHC 30.5 L (33.0-35.0) g/dL Plt Count 310 (150-450) 10^3/uL Neut % (Auto) 91.1 H (42.2-75.2) % Lymph % (Auto) 4.0 L (20.5-50.1) % [place] % (Auto) 2.9 (2-8) % Eos % (Auto) 1.4 (1.0-3.0) % Baso % (Auto) 0.6 (0.0-1.0) % PT 12.0 (9.0-12.0) SEC INR 1.2 (0.9-1.2) Sodium 141 (136-145) mmol/L Potassium 3.9 (3.5-5.1) mmol/L Chloride 100 (98-107) mmol/L Carbon Dioxide 33 H (21-32) mmol/L Anion Gap 11.9 (7-13) mEq/L BUN 19 H (7-18) mg/dL Creatinine 1.28 (0.70-1.30) mg/dL Est Cr Clr Drug Dosing 50.66 mL/min Estimated GFR (MDRD) 54 BUN/Creatinine Ratio 14.8 (No establ ref range) Glucose 285 H (70-99) mg/dL Lactic Acid (0.4-2.0) mmol/L Calcium 8.1 L (8.5-10.1) mg/dL Total Bilirubin 0.6 (0.2-1.0) mg/dL AST < 5 L (15-37) U/L ALT 20 (16-63) U/L Alkaline Phosphatase 82 (46-116) U/L Troponin I < 0.017 (0.000-0.056) ng/mL Total Protein 6.4 (6.4-8.2) g/dL Albumin 3.4 (3.4-5.0) g/dL Globulin 3.0 Albumin/Globulin Ratio 1.1 // Range/Units 14:01 WBC (5.0-10.0) 10^3/uL RBC (4.6-6.2) 10^6/uL Hgb (14.0-18.0) g/dL Hct (40.0-54.0) % MCV (80-100) fL MCH (27.0-34.0) pg MCHC (33.0-35.0) g/dL Plt Count (150-450) 10^3/uL Neut % (Auto) (42.2-75.2) % Lymph % (Auto) (20.5-50.1) % [place] % (Auto) (2-8) % Eos % (Auto) (1.0-3.0) % Baso % (Auto) (0.0-1.0) % PT (9.0-12.0) SEC INR (0.9-1.2) Sodium (136-145) mmol/L Potassium (3.5-5.1) mmol/L Chloride (98-107) mmol/L Carbon Dioxide (21-32) mmol/L Anion Gap (7-13) mEq/L BUN (7-18) mg/dL Creatinine (0.70-1.30) mg/dL Est Cr Clr Drug Dosing mL/min Estimated GFR (MDRD) BUN/Creatinine Ratio (No establ ref range) Glucose (70-99) mg/dL Lactic Acid 2.2 H* (0.4-2.0) mmol/L Calcium (8.5-10.1) mg/dL Total Bilirubin (0.2-1.0) mg/dL AST (15-37) U/L ALT (16-63) U/L Alkaline Phosphatase (46-116) U/L Troponin I (0.000-0.056) ng/mL Total Protein (6.4-8.2) g/dL Albumin (3.4-5.0) g/dL Globulin Albumin/Globulin Ratio Meds: Medications Discontinued Medications Generic Name Dose Route Start Last Admin Trade Name Rosemary PRN Reason Stop Dose Admin Diltiazem HCl 20 mg 09/20/20 14:11 09/20/20 14:22 Diltiazem 25 Mg/5 Ml Sdv IVPUSH 09/20/20 14:12 20 mg ONETIME ONE Administration Departure - Departure Time of Disposition: 15:28 Disposition: Home, Self-Care 01 Condition: Fair Clinical Impression: Atrial flutter Qualifiers: Atrial flutter type: unspecified Qualified Code(s): I48.92 - Unspecified atrial flutter Instructions: Atrial Flutter, Atrial Fibrillation, [id number] Forms: ED Department Discharge Care Plan Goals: The patient was advised of the examination, lab, x-ray and EKG results during the visit. The patient was given an IV dose of Cardizem while in the ED which slowed his heart rate down. The patient was encouraged to continue to take his medications as prescribed. If the patient has any additional symptoms or concerns, the patient should either return to the emergency department or visit his primary care facility. Sepsis Event Note (ED) - Evaluation Sepsis Screening Result: No Definite Risk - Focused Exam Vital Signs: Vital Signs Temp Pulse Resp BP Pulse Ox 09/20/20 14:02 97.3 F 138 H 20 119/82 95 - My Orders Last 24 Hours: My Active Orders 09/20/20 13:57 EKG Documentation Completion [RC] STAT 09/20/20 14:27 CULTURE BLOOD [BC] Stat CULTURE BLOOD [BC] Stat Blood Culture x2 Reflex Set [OM.PC] Stat - Assessment/Plan Last 24 Hours: My Active Orders 09/20/20 13:57 EKG Documentation Completion [RC] STAT 09/20/20 14:27 CULTURE BLOOD [BC] Stat CULTURE BLOOD [BC] Stat Blood Culture x2 Reflex Set [OM.PC] Stat
[2020-09-20 14:27] LABS: ANION GAP 11.9 mEq/L (7-13); CHLORIDE,CL 100 mmol/L (98-107); SODIUM,NA 141 mmol/L (136-145)
--- NOTE | 2020-09-20 15:15 | CR ---
EXAMINATION: Chest 1V Frontal SEX: Male AGE: 80 years CLINICAL HISTORY: 80-year-old female with elevated white blood cell count and tachycardia. CT chest March, revealed "reactive airway disease, atelectasis lung bases, and small pleural/pericardial effusions". Interpretation: Chronic abnormalities (atelectasis) both lung bases exaggerated by less than optimal inspiratory effort. Comment pulmonary artery segments suggesting pulmonary artery hypertension but normal cardiac silhouette (size and configuration) and no new vascular congestion, cephalization of flow or alveolar edema. Chronic blunting of the costophrenic sulci. No new lung mass or hilar lymphadenopathy. No alveolar consolidation (infiltrate or new atelectasis). No peripheral "groundglass" interstitial lung infiltrates. No pneumothorax or pneumomediastinum. CONCLUSION: No acute new cardiopulmonary abnormality since 16 March 2020 comparison film.
== END 2020-09-20 15:40 | disposition home or self-care (01) ==
LOC: DL.ED 13:46
DX: I48.92 Unspecified atrial flutter (principal); I25.2 Old myocardial infarction; I50.9 Heart failure, unspecified; J44.9 Chronic obstructive pulmonary disease, unspecified; E66.9 Obesity, unspecified; Z79.02 Long term (current) use of antithrombotics/antiplatelets; Z79.899 Other long term (current) drug therapy; Z68.33 Body mass index [BMI] 33.0-33.9, adult
CPT/HCPCS: 36415; 71045; 80053; 83605; 84484; 85025; 85610; 87040; 93005; 93010; 96374; 99284; 99285-25; J3490

== ENCOUNTER 2020-09-21 11:41 | Emergency (ER) | payer OTHER, MEDICARE ==
[2020-09-21] MEDS ORDERED: Diltiazem 25 MG/5 ML SDV IVPUSH ONE (12:05)
[2020-09-21 15:14] LABS: ANION GAP 10.7 mEq/L (7-13); CHLORIDE,CL 101 mmol/L (98-107); SODIUM,NA 141 mmol/L (136-145)
--- NOTE | 2020-09-22 10:11 | EDM.PDOC ---
Scribed by Adwoa Harrell 09/21/20 [id number] for Simran Small NP ED HPI GENERAL MEDICAL PROBLEM - General Chief Complaint: Cardiovascular Problem Stated Complaint: FAST HEART RATE TOLD BY PRUDENCIO TO COME Time Seen by Provider: 09/21/20 12:00 Source of Information: Reports: Patient, RN, RN Notes Reviewed History Limitations: Reports: No Limitations - History of Present Illness INITIAL COMMENTS - FREE TEXT/NARRATIVE: Patient is a 80-year-old male who presents to ER with complaint of rapid heart rate. He can feel a flutter in the chest, but denies chest pains. Patient states he has COPD but no more shortness of breath with episodes of heart fluttering. [facility]. History of kidney cancer. Patient was here yesterday as well for same reason. HE was given IV Diltiazem and rate was better. No change in oral meds. States he takes Diltiazem 240mg orally daily. Onset: Gradual Duration: Constant Location: Reports: Other (heart) Quality: Reports: Ache Severity: Moderate Improves with: Reports: None Worsens with: Reports: None Associated Symptoms: Reports: No Other Symptoms Treatments CELL ATTENDANT: Reports: EKG, IV/IO, Oxygen Chest Pain Score (Numeric/FACES): 5 - Related Data Allergies Allergy/AdvReac Type Severity Reaction Status Date / Time No Known Allergies Allergy Verified 09/20/20 14:01 Home Meds: Home Meds Albuterol Sulfate [Albuterol Sulfate Hfa] 2 puff INH Q6H PRN 03/10/20 [History] Arformoterol [Brovana] 15 mcg INH BID 03/10/20 [History] Budesonide [Pulmicort] 0.5 mg IH BID 03/10/20 [History] Bumetanide [Bumex] 1 mg PO DAILY 03/10/20 [History] Cetirizine HCl [Zyrtec] 10 mg PO DAILY 03/10/20 [History] Cholecalciferol (Vitamin D3) [Vitamin D3] 400 unit PO BID 03/10/20 [History] Clopidogrel [Plavix] 75 mg PO DAILY 03/10/20 [History] Diltiazem HCl [Diltiazem 24Hr Cd] 180 mg PO DAILY 03/10/20 [History] Hydroxyurea [Hydrea] 500 mg PO ..Thu03/10/20 [History] Ipratropium/Albuterol Sulfate [Iprat-Albut 0.5-3(2.5) mg/3 ml] 3 ml IH Q4H PRN 03/10/20 [History] Ketotifen [Ketotifen 0.025% Ophth Soln] 1 drop EYEBOTH BID 03/10/20 [History] Lactobacillus 3/Fos/Pantethine [Probiotic & Acidophilus] 1 cap PO DAILY 03/10/20 [History] Magnesium Oxide 420 mg PO DAILY 03/10/20 [History] Metoprolol Tartrate 50 mg PO BID 03/10/20 [History] Nicotine Polacrilex [Nicotine Lozenge] 2 mg BC Q2H PRN 03/10/20 [History] Nitroglycerin [Nitrostat] 0.4 mg SL ASDIRECTED PRN 03/10/20 [History] Omeprazole 20 mg PO BIDAC 03/10/20 [History] Polyvinyl Alcohol [Artificial Tears] 1 drop OP Q4H PRN 03/10/20 [History] Rivaroxaban [Xarelto] 20 mg PO DAILY 03/10/20 [History] Rosuvastatin [Crestor] 10 mg PO DAILY 03/10/20 [History] Tiotropium [Spiriva HandiHaler] 18 mcg INH DAILY 03/10/20 [History] Levofloxacin 500 mg PO DAILY #7 tablet 03/12/20 [Rx] predniSONE [Prednisone] 10 mg PO DAILY #31 tablet 03/12/20 [Rx] Past Medical History HEENT History: Reports: None Cardiovascular History: Reports: Afib, Heart Failure, [place] Respiratory History: Reports: COPD Gastrointestinal History: Reports: None Genitourinary History: Reports: Other (See Below) Other Genitourinary History: chrioblast? Musculoskeletal History: Reports: Fracture Neurological History: Reports: None Psychiatric History: Reports: Addiction Endocrine/Metabolic History: Reports: Obesity/BMI 30+ Hematologic History: Reports: Polycythemia Immunologic History: Reports: None Oncologic (Cancer) History: Reports: Renal Dermatologic History: Reports: None - Infectious Disease History Infectious Disease History: Reports: Chicken Pox, Measles, Mumps, Shingles - Past Surgical History Head Surgeries/Procedures: Reports: None Cardiovascular Surgical History: Reports: Coronary Artery Stent Male Surgical History: Reports: Other (See Below) Musculoskeletal Surgical History: Reports: Arthroscopic Knee, Carpal Tunnel Social & Family History - Family History Family Medical History: No Pertinent Family History - Tobacco Use Tobacco Use Status *Q: Current Every Day Tobacco User Years of Tobacco use: 25 Packs/Tins Daily: 0 Used Tobacco, but Quit: Yes Month/Year Tobacco Last Used: - Caffeine Use Caffeine Use: Reports: Coffee, Tea - Recreational Drug Use Recreational Drug Use: No - Living Situation & Occupation Occupation: Retired ED ROS GENERAL - Review of Systems Review Of Systems: Comprehensive ROS is negative, except as noted in HPI. ED EXAM, GENERAL - Physical Exam Exam: See Below Exam Limited By: No Limitations General Appearance: Alert, WD/WN, No Apparent Distress Eye Exam: Bilateral Eye: EOMI, Normal Inspection, PERRL Ears: Normal External Exam, Normal Canal, Hearing Grossly Normal, Normal TMs Nose: Normal Inspection, Normal Mucosa, No Blood Throat/Mouth: Normal Inspection, Normal Lips, Normal Teeth, Normal Gums, Normal Oropharynx, Normal Voice, No Airway Compromise Head: Atraumatic, Normocephalic Neck: Normal Inspection, Supple, Non-Tender, Full Range of Motion Respiratory/Chest: Decreased Breath Sounds, Crackles (fine crackles bases bilaterally) Cardiovascular: Irregularly Irregular GI/Abdominal: Normal Bowel Sounds, Soft, Non-Tender, No Organomegaly, No Distention, No Abnormal Bruit, No Mass (Male) Exam: Deferred Rectal (Males) Exam: Deferred Back Exam: Normal Inspection, Full Range of Motion, NT Extremities: Normal Inspection, Normal Range of Motion, Non-Tender, Normal Capillary Refill, No Pedal Edema Neurological: Alert, Oriented, CN II-XII Intact, Normal Cognition, Normal Gait, Normal Reflexes, No Motor/Sensory Deficits Psychiatric: Normal Affect, Normal Mood Skin Exam: Warm, Dry, Intact, Normal Color, No Rash Lymphatic: No Adenopathy #1 Interpretation EKG Date: 09/21/20 Time: 11:57 Rhythm: A-Flutter (with predominant 2:1 AV block.) Rate (Beats/Min): 141 EKG Interpretation Comments: Low voltage extremity and precordial leads. ST depression, probably rate related. Prolonged QT interval, Baseline wander in lead (s) II, III, aVR, aVF, V1 and V4. #2 Interpretation EKG Date: 09/21/20 Time: 15:24 Rhythm: A-Flutter Rate (Beats/Min): 116 EKG Interpretation Comments: Paired ventricular premature complexes. Low voltage, extremity leads. Repolarization abnormality suggests ischemic, diffuse leads. Minimal ST elevation. Prolonged QT interval. Course - Vital Signs Last Recorded V/S: Last Vital Signs Temp 97.4 F 09/21/20 12:00 Pulse 141 H 09/21/20 12:00 Resp 20 09/21/20 12:00 BP 123/75 09/21/20 12:00 Pulse Ox 95 09/21/20 12:00 - Orders/Labs/Meds Labs: Laboratory Tests 09/21/20 09/21/20 09/21/20 Range/Units 12:17 12:17 12:17 WBC 20.0 H (5.0-10.0) 10^3/uL RBC 6.75 H (4.6-6.2) 10^6/uL Hgb 16.5 (14.0-18.0) g/dL Hct 54.9 H (40.0-54.0) % MCV 81.3 (80-100) fL MCH 24.4 L (27.0-34.0) pg MCHC 30.1 L (33.0-35.0) g/dL Plt Count 342 (150-450) 10^3/uL Neut % (Auto) 90.9 H (42.2-75.2) % Lymph % (Auto) 3.9 L (20.5-50.1) % [place] % (Auto) 3.4 (2-8) % Eos % (Auto) 1.4 (1.0-3.0) % Baso % (Auto) 0.4 (0.0-1.0) % PT 11.6 (9.0-12.0) SEC INR 1.2 (0.9-1.2) Sodium 141 (136-145) mmol/L Potassium 3.7 (3.5-5.1) mmol/L Chloride 101 (98-107) mmol/L Carbon Dioxide 33 H (21-32) mmol/L Anion Gap 10.7 (7-13) mEq/L BUN 16 (7-18) mg/dL Creatinine 1.20 (0.70-1.30) mg/dL Est Cr Clr Drug Dosing 54.03 mL/min Estimated GFR (MDRD) 59 BUN/Creatinine Ratio 13.3 (No establ ref range) Glucose 246 H (70-99) mg/dL Calcium 8.2 L (8.5-10.1) mg/dL Total Bilirubin 0.5 (0.2-1.0) mg/dL AST 7 L (15-37) U/L ALT 23 (16-63) U/L Alkaline Phosphatase 77 (46-116) U/L Troponin I < 0.017 (0.000-0.056) ng/mL B-Natriuretic Peptide 99 (0-100) pg/ml Total Protein 6.4 (6.4-8.2) g/dL Albumin 3.5 (3.4-5.0) g/dL Globulin 2.9 Albumin/Globulin Ratio 1.2 Meds: Medications Discontinued Medications Generic Name Dose Route Start Last Admin Trade Name Freq PRN Reason Stop Dose Admin Diltiazem HCl 20 mg 09/21/20 12:05 09/21/20 12:43 Diltiazem 25 Mg/5 Ml Sdv IVPUSH 09/21/20 12:06 20 mg ONETIME ONE Administration - Re-Assessments/Exams Free Text/Narrative Re-Assessment/Exam: Discussed patient case with [place] Provider, Molly Ferguson. She would like the patient to be transferred to [place] in [place]. Patient does not want to go to [place] via ambulance. Instructed patient we would max out his Diltiazem dose. It he continues to have issues he will return to ER. He adamantly denies having chest pains or shortness of breath at home with increased heart rate episodes. Departure - Departure Time of Disposition: 15:41 Disposition: Home, Self-Care 01 Reason for Transfer *Q: Other Condition: Fair Clinical Impression: Atrial flutter with rapid ventricular response Instructions: Atrial Flutter, Atrial Fibrillation, [id number] Forms: ED Department Discharge Additional Instructions: Increase Diltiazem to 360mg orally once daily. Script sent for an additional 120mg. Return to ER with any worsening of problems [facility] Sepsis Event Note (ED) - Evaluation Sepsis Screening Result: No Definite Risk I have read and agree with the documentation that has been completed regarding this visit. By signing this record, I attest that the documentation was completed in my physical presence and is an accurate record of the encounter.
== END 2020-09-21 16:03 | disposition home or self-care (01) ==
LOC: DL.ED 11:41
DX: I48.92 Unspecified atrial flutter (principal); I50.9 Heart failure, unspecified; I25.2 Old myocardial infarction; J44.9 Chronic obstructive pulmonary disease, unspecified; E66.9 Obesity, unspecified; Z68.30 Body mass index [BMI] 30.0-30.9, adult; Z79.01 Long term (current) use of anticoagulants; Z79.899 Other long term (current) drug therapy; Z72.0 Tobacco use; Z79.02 Long term (current) use of antithrombotics/antiplatelets
CPT/HCPCS: 36415; 80053; 83880; 84484; 85025; 85610; 93010; 96374; 99284; 99285-25; J3490

== ENCOUNTER 2020-10-16 10:18 | Inpatient (IN) | payer OTHER, MEDICARE ==
[2020-10-16 11:31] LABS: ANION GAP 11.7 mEq/L (7-13)
--- NOTE | 2020-10-16 11:35 | EDM.PDOC ---
ED HPI GENERAL MEDICAL PROBLEM - General Chief Complaint: Upper Extremity Injury/Pain Stated Complaint: [id number] SENT FROM [place] FOR LEG Time Seen by Provider: 10/16/20 11:15 Source of Information: Reports: Patient, RN, RN Notes Reviewed History Limitations: Reports: No Limitations - History of Present Illness INITIAL COMMENTS - FREE TEXT/NARRATIVE: Patient is a 80-year-old male who presents to ER with complaint of left lower leg swelling and redness. States [facility] and saw his provider on telemedicine this morning and was referred to come to the ER. Patient states he noticed the increased swelling and redness yesterday, thinks he may have had fever and chills. He states last evening he felt like he was may be very confused and just "off". Patient is somewhat lethargic today but answers questions appropriately. States some increased shortness of breath. Does have history of COPD and is on oxygen at home. Denies any nausea, vomiting, diarrhea. Patient also has a history of atrial fibrillation with uncontrolled rate from time to time, as well as lymphedema. Onset Date: 10/15/20 Left Leg Pain Score (Numeric/FACES): 10 - Related Data Allergies Allergy/AdvReac Type Severity Reaction Status Date / Time No Known Allergies Allergy Verified 09/20/20 14:01 Home Meds: Home Meds Albuterol Sulfate [Albuterol Sulfate Hfa] 2 puff INH Q6H PRN 03/10/20 [History] Arformoterol [Brovana] 15 mcg INH BID 03/10/20 [History] Budesonide [Pulmicort] 0.5 mg IH BID 03/10/20 [History] Bumetanide [Bumex] 1 mg PO DAILY 03/10/20 [History] Cetirizine HCl [Zyrtec] 10 mg PO DAILY 03/10/20 [History] Cholecalciferol (Vitamin D3) [Vitamin D3] 400 unit PO BID 03/10/20 [History] Clopidogrel [Plavix] 75 mg PO DAILY 03/10/20 [History] Diltiazem HCl [Diltiazem 24Hr Cd] 180 mg PO DAILY 03/10/20 [History] Hydroxyurea [Hydrea] 500 mg PO .MON.WED.Thu03/10/20 [History] Ipratropium/Albuterol Sulfate [Iprat-Albut 0.5-3(2.5) mg/3 ml] 3 ml IH Q4H PRN 03/10/20 [History] Ketotifen [Ketotifen 0.025% Ophth Soln] 1 drop EYEBOTH BID 03/10/20 [History] Lactobacillus 3/Fos/Pantethine [Probiotic & Acidophilus] 1 cap PO DAILY 03/10/20 [History] Magnesium Oxide 420 mg PO DAILY 03/10/20 [History] Metoprolol Tartrate 50 mg PO BID 03/10/20 [History] Nicotine Polacrilex [Nicotine Lozenge] 2 mg BC Q2H PRN 03/10/20 [History] Nitroglycerin [Nitrostat] 0.4 mg SL ASDIRECTED PRN 03/10/20 [History] Omeprazole 20 mg PO BIDAC 03/10/20 [History] Polyvinyl Alcohol [Artificial Tears] 1 drop OP Q4H PRN 03/10/20 [History] Rivaroxaban [Xarelto] 20 mg PO DAILY 03/10/20 [History] Rosuvastatin [Crestor] 10 mg PO DAILY 03/10/20 [History] Tiotropium [Spiriva HandiHaler] 18 mcg INH DAILY 03/10/20 [History] Levofloxacin 500 mg PO DAILY #7 tablet 03/12/20 [Rx] predniSONE [Prednisone] 10 mg PO DAILY #31 tablet 03/12/20 [Rx] Past Medical History HEENT History: Reports: None Cardiovascular History: Reports: Afib, Heart Failure, CT Respiratory History: Reports: COPD Gastrointestinal History: Reports: None Genitourinary History: Reports: Other (See Below) Other Genitourinary History: chrioblast? Musculoskeletal History: Reports: Fracture Neurological History: Reports: None Psychiatric History: Reports: Addiction Endocrine/Metabolic History: Reports: Obesity/BMI 30+ Hematologic History: Reports: Polycythemia Immunologic History: Reports: None Oncologic (Cancer) History: Reports: Renal Dermatologic History: Reports: None - Infectious Disease History Infectious Disease History: Reports: Chicken Pox, Measles, Mumps, Shingles - Past Surgical History Head Surgeries/Procedures: Reports: None Cardiovascular Surgical History: Reports: Coronary Artery Stent Male Surgical History: Reports: Other (See Below) Musculoskeletal Surgical History: Reports: Arthroscopic Knee, Carpal Tunnel Social & Family History - Family History Family Medical History: No Pertinent Family History - Tobacco Use Tobacco Use Status *Q: Unknown Ever Used Tobacco - Caffeine Use Caffeine Use: Reports: Coffee - Recreational Drug Use Recreational Drug Use: No - Living Situation & Occupation Occupation: Retired Review of Systems - Review of Systems Review Of Systems: Comprehensive ROS is negative, except as noted in HPI. ED EXAM, GENERAL - Physical Exam Exam: See Below Exam Limited By: No Limitations General Appearance: Alert, WD/WN, Lethargic Eye Exam: Bilateral Eye: EOMI, Normal Inspection Ears: Normal External Exam, Hearing Grossly Normal Nose: Normal Inspection Throat/Mouth: Normal Inspection, Normal Voice, No Airway Compromise Head: Atraumatic, Normocephalic Neck: Normal Inspection Respiratory/Chest: No Respiratory Distress, No Accessory Muscle Use, Chest Non- Tender, Decreased Breath Sounds Cardiovascular: Irregularly Irregular Peripheral Pulses: 1+: Radial (L), Radial (R) GI/Abdominal: Normal Bowel Sounds, Soft, Non-Tender (Male) Exam: Deferred Rectal (Males) Exam: Deferred Back Exam: Normal Inspection, Decreased Range of Motion Extremities: Pedal Edema (Bilateral), Leg Pain (Left lower leg), Increased Warmth (Left lower leg), Redness (Left lower leg) Neurological: Alert, Oriented, Normal Cognition Psychiatric: Normal Affect, Normal Mood Skin Exam: Warm, Dry, Intact, Erythema (Left lower leg), Increased Warmth (Left lower leg) Lymphatic: No Adenopathy Course - Vital Signs Last Recorded V/S: Last Vital Signs Temp 99 F 10/16/20 11:07 Pulse 129 H 10/16/20 11:07 Resp 16 10/16/20 11:07 BP 105/65 10/16/20 11:07 Pulse Ox 94 L 10/16/20 11:07 - Orders/Labs/Meds Orders: Active Orders 24 hr Category Date Time Status Admission Diagnosis [ADT] Stat ADT 10/16/20 11:52 Ordered Admission Status [Patient Status] [ADT] Routine ADT 10/16/20 11:52 Active CORONAVIRUS COVID-19 SHAHRZAD [MOLEC] Stat Lab 10/16/20 11:43 Received CULTURE BLOOD [BC] Stat Lab 10/16/20 10:52 Received CULTURE BLOOD [BC] Stat Lab 10/16/20 10:59 Results D Dimer [D-DIMER QUANTITATIVE] [COAG] Stat Lab 10/16/20 10:52 Received ceFAZolin [Ancef 2 GM/50 ML] 50 ml Med 10/16/20 11:56 Active IV ONETIME Blood Culture x2 Reflex Set [OM.PC] Stat Oth 10/16/20 10:38 Ordered Medication Orders Cefazolin Sodium/Dextrose (Ancef 2 Gm/50 Ml) 50 mls @ 100 mls/hr IV ONETIME ONE Stop: 10/16/20 12:25 Labs: Laboratory Tests 10/16/20 10/16/20 10/16/20 Range/Units 10:52 10:52 10:52 WBC 30.6 H* (5.0-10.0) 10^3/uL RBC 6.35 H (4.6-6.2) 10^6/uL Hgb 15.7 (14.0-18.0) g/dL Hct 51.8 (40.0-54.0) % MCV 81.6 (80-100) fL MCH 24.7 L (27.0-34.0) pg MCHC 30.3 L (33.0-35.0) g/dL Plt Count 351 (150-450) 10^3/uL Neut % (Auto) 89.0 H (42.2-75.2) % Lymph % (Auto) 3.8 L (20.5-50.1) % [place] % (Auto) 6.8 (2-8) % Eos % (Auto) 0.2 L (1.0-3.0) % Baso % (Auto) 0.2 (0.0-1.0) % Add Manual Diff Yes Neutrophils % (Manual) 92 H (42-75) % Band Neutrophils % 3 % Lymphocytes % (Manual) 1 L (20-50) % Monocytes % (Manual) 3 (2-8) % Eosinophils % (Manual) 1 (1-3) % Hypochromasia 1+ slight PT 14.3 H (9.0-12.0) SEC INR 1.4 H (0.9-1.2) Sodium 145 (136-145) mmol/L Potassium 3.7 (3.5-5.1) mmol/L Chloride 102 (98-107) mmol/L Carbon Dioxide 35 H (21-32) mmol/L Anion Gap 11.7 (7-13) mEq/L BUN 18 (7-18) mg/dL Creatinine 1.41 H (0.70-1.30) mg/dL Est Cr Clr Drug Dosing 44.58 mL/min Estimated GFR (MDRD) 49 BUN/Creatinine Ratio 12.8 (No establ ref range) Glucose 179 H (70-99) mg/dL Lactic Acid (0.4-2.0) mmol/L Calcium 8.3 L (8.5-10.1) mg/dL Total Bilirubin 1.3 H (0.2-1.0) mg/dL AST 9 L (15-37) U/L ALT 19 (16-63) U/L Alkaline Phosphatase 73 (46-116) U/L Total Protein 6.1 L (6.4-8.2) g/dL Albumin 3.2 L (3.4-5.0) g/dL Globulin 2.9 Albumin/Globulin Ratio 1.10 06/15/ Range/Units 10:52 WBC (5.0-10.0) 10^3/uL RBC (4.6-6.2) 10^6/uL Hgb (14.0-18.0) g/dL Hct (40.0-54.0) % MCV (80-100) fL MCH (27.0-34.0) pg MCHC (33.0-35.0) g/dL Plt Count (150-450) 10^3/uL Neut % (Auto) (42.2-75.2) % Lymph % (Auto) (20.5-50.1) % [place] % (Auto) (2-8) % Eos % (Auto) (1.0-3.0) % Baso % (Auto) (0.0-1.0) % Add Manual Diff Neutrophils % (Manual) (42-75) % Band Neutrophils % % Lymphocytes % (Manual) (20-50) % Monocytes % (Manual) (2-8) % Eosinophils % (Manual) (1-3) % Hypochromasia PT (9.0-12.0) SEC INR (0.9-1.2) Sodium (136-145) mmol/L Potassium (3.5-5.1) mmol/L Chloride (98-107) mmol/L Carbon Dioxide (21-32) mmol/L Anion Gap (7-13) mEq/L BUN (7-18) mg/dL Creatinine (0.70-1.30) mg/dL Est Cr Clr Drug Dosing mL/min Estimated GFR (MDRD) BUN/Creatinine Ratio (No establ ref range) Glucose (70-99) mg/dL Lactic Acid 2.0 (0.4-2.0) mmol/L Calcium (8.5-10.1) mg/dL Total Bilirubin (0.2-1.0) mg/dL AST (15-37) U/L ALT (16-63) U/L Alkaline Phosphatase (46-116) U/L Total Protein (6.4-8.2) g/dL Albumin (3.4-5.0) g/dL Globulin Albumin/Globulin Ratio Meds: Medications Generic Name Dose Route Start Last Admin Trade Name Freq PRN Reason Stop Dose Admin Cefazolin Sodium/Dextrose 50 mls @ 100 mls/hr 10/16/20 11:56 Ancef 2 Gm/50 Ml IV 10/16/20 12:25 ONETIME ONE - Re-Assessments/Exams Free Text/Narrative Re-Assessment/Exam: 10/16/20 11:58 Discussed patient case with Jackie at the [place], who states the patient can be admitted here. She will follow up with Kita Clark regarding further stay. 10/16/20 12:00 Discussed patient case with Dr. Molina who agreed to accept the patient for inpatient admission. Departure - Departure Time of Disposition: 11:59 Disposition: Admitted As Inpatient 68 Condition: Fair Clinical Impression: Cellulitis Qualifiers: Site of cellulitis: extremity Site of cellulitis of extremity: lower extremity Laterality: left Qualified Code(s): L03.116 - Cellulitis of left lower limb - Discharge Information *PRESCRIPTION DRUG MONITORING PROGRAM REVIEWED*: No *COPY OF PRESCRIPTION DRUG MONITORING REPORT IN PATIENT ANNELISE: No Forms: ED Department Discharge Sepsis Event Note (ED) - Evaluation Sepsis Screening Result: No Definite Risk - Focused Exam Vital Signs: Vital Signs Temp Pulse Resp BP Pulse Ox 10/16/20 11:07 99 F 129 H 16 105/65 94 L - My Orders Last 24 Hours: My Active Orders 10/16/20 10:38 Blood Culture x2 Reflex Set [OM.PC] Stat 10/16/20 10:52 CULTURE BLOOD [BC] Stat D Dimer [D-DIMER QUANTITATIVE] [COAG] Stat 10/16/20 10:59 CULTURE BLOOD [BC] Stat 10/16/20 11:43 CORONAVIRUS COVID-19 SHAHRZAD [MOLEC] Stat 10/16/20 11:52 Admission Diagnosis [ADT] Stat Admission Status [Patient Status] [ADT] Routine 10/16/20 11:56 ceFAZolin [Ancef 2 GM/50 ML] 50 ml IV ONETIME - Assessment/Plan Last 24 Hours: My Active Orders 10/16/20 10:38 Blood Culture x2 Reflex Set [OM.PC] Stat 10/16/20 10:52 CULTURE BLOOD [BC] Stat D Dimer [D-DIMER QUANTITATIVE] [COAG] Stat 10/16/20 10:59 CULTURE BLOOD [BC] Stat 10/16/20 11:43 CORONAVIRUS COVID-19 SHAHRZAD [MOLEC] Stat 10/16/20 11:52 Admission Diagnosis [ADT] Stat Admission Status [Patient Status] [ADT] Routine 10/16/20 11:56 ceFAZolin [Ancef 2 GM/50 ML] 50 ml IV ONETIME
[2020-10-16] MEDS ORDERED: Ondansetron 4 MG/2 ML SDV IVPUSH PRN (12:58)
[2020-10-16] MEDS ORDERED: Acetaminophen 325 MG Tab PO PRN (12:58)
[2020-10-16] MEDS ORDERED: Sodium Chloride 0.9% 1,000 ML IV SCH (13:00)
--- NOTE | 2020-10-16 13:07 | PCM.HP ---
H&P History of Present Illness - General Date of Service: 10/16/20 Admit Problem/Dx: Left lower extremity cellulitisAdmission Diagnosis/Problem Admission Diagnosis/Problem Cellulitis - History of Present Illness Initial Comments - Free Text/Narative: The patient is a 80-year-old male who presents chief complaint of left lower leg pain. He states the pain, swelling, redness started proximally 24 hours prior to admission. Since that time it has worsened. He denies any trauma or inciting event. The present time he rates the pain as an 8 out of 10 describes as sharp and it has been constant since time of onset. He denies paresthesia or anesthesia of the left lower extremity. The patient has fever, rigors, nausea, vomiting, cough, wheeze. He presents for further evaluation Left Leg Pain Score (Numeric/FACES): 10 - Related Data Allergies/Adverse Reactions: Allergies Allergy/AdvReac Type Severity Reaction Status Date / Time No Known Allergies Allergy Verified 09/20/20 14:01 Home Medications: Home Meds Albuterol Sulfate [Albuterol Sulfate Hfa] 2 puff INH Q6H PRN 03/10/20 [History] Arformoterol [Brovana] 15 mcg INH BID 03/10/20 [History] Budesonide [Pulmicort] 0.5 mg IH BID 03/10/20 [History] Bumetanide [Bumex] 1 mg PO DAILY 03/10/20 [History] Cetirizine HCl [Zyrtec] 10 mg PO DAILY 03/10/20 [History] Cholecalciferol (Vitamin D3) [Vitamin D3] 400 unit PO BID 03/10/20 [History] Clopidogrel [Plavix] 75 mg PO DAILY 03/10/20 [History] Diltiazem HCl [Diltiazem 24Hr Cd] 180 mg PO DAILY 03/10/20 [History] Hydroxyurea [Hydrea] 500 mg PO .[id number]/10/20 [History] Ipratropium/Albuterol Sulfate [Iprat-Albut 0.5-3(2.5) mg/3 ml] 3 ml IH Q4H PRN 03/10/20 [History] Ketotifen [Ketotifen 0.025% Ophth Soln] 1 drop EYEBOTH BID 03/10/20 [History] Lactobacillus 3/Fos/Pantethine [Probiotic & Acidophilus] 1 cap PO DAILY 03/10/20 [History] Magnesium Oxide 420 mg PO DAILY 03/10/20 [History] Metoprolol Tartrate 50 mg PO BID 03/10/20 [History] Nicotine Polacrilex [Nicotine Lozenge] 2 mg BC Q2H PRN 03/10/20 [History] Nitroglycerin [Nitrostat] 0.4 mg SL ASDIRECTED PRN 03/10/20 [History] Omeprazole 20 mg PO BIDAC 03/10/20 [History] Polyvinyl Alcohol [Artificial Tears] 1 drop OP Q4H PRN 03/10/20 [History] Rivaroxaban [Xarelto] 20 mg PO DAILY 03/10/20 [History] Rosuvastatin [Crestor] 10 mg PO DAILY 03/10/20 [History] Tiotropium [Spiriva HandiHaler] 18 mcg INH DAILY 03/10/20 [History] Levofloxacin 500 mg PO DAILY #7 tablet 03/12/20 [Rx] predniSONE [Prednisone] 10 mg PO DAILY #31 tablet 03/12/20 [Rx] Past Medical History HEENT History: Reports: None Cardiovascular History: Reports: Afib, Heart Failure, ME Respiratory History: Reports: COPD Gastrointestinal History: Reports: None Genitourinary History: Reports: Other (See Below) Other Genitourinary History: chrioblast? Musculoskeletal History: Reports: Fracture Neurological History: Reports: None Psychiatric History: Reports: Addiction Endocrine/Metabolic History: Reports: Obesity/BMI 30+ Hematologic History: Reports: Polycythemia Immunologic History: Reports: None Oncologic (Cancer) History: Reports: Renal Dermatologic History: Reports: None - Infectious Disease History Infectious Disease History: Reports: Chicken Pox, Measles, Mumps, Shingles - Past Surgical History Head Surgeries/Procedures: Reports: None Cardiovascular Surgical History: Reports: Coronary Artery Stent Male Surgical History: Reports: Other (See Below) Musculoskeletal Surgical History: Reports: Arthroscopic Knee, Carpal Tunnel Social & Family History - Family History Family Medical History: No Pertinent Family History - Tobacco Use Tobacco Use Status *Q: Unknown Ever Used Tobacco - Caffeine Use Caffeine Use: Reports: Coffee - Recreational Drug Use Recreational Drug Use: No - Living Situation & Occupation Occupation: Retired H&P Review of Systems - Review of Systems: Review Of Systems: Comprehensive ROS is negative, except as noted in HPI. General: Reports: No Symptoms HEENT: Reports: No Symptoms Pulmonary: Reports: No Symptoms Cardiovascular: Reports: No Symptoms Gastrointestinal: Reports: No Symptoms Genitourinary: Reports: No Symptoms Musculoskeletal: Reports: No Symptoms Psychiatric: Reports: No Symptoms Neurological: Reports: No Symptoms Hematologic/Lymphatic: Reports: No Symptoms Immunologic: Reports: No Symptoms Exam - Exam Exam: See Below - Vital Signs Vital Signs: Last Vital Signs Temp 99 F 10/16/20 11:07 Pulse 129 H 10/16/20 11:07 Resp 16 10/16/20 11:07 BP 105/65 10/16/20 11:07 Pulse Ox 94 L 10/16/20 11:07 Weight: 238 lb - Exam General: Alert, Oriented, 4 HEENT: PERRLA, Hearing Intact, Mucosa Moist & [place], Nares Patent, Normal Nasal Septum, Posterior Pharynx Clear, Conjunctiva Clear, EOMI, EACs Clear, TMs Clear Neck: Supple, Trachea Midline, 2 Lungs: Clear to Auscultation, Normal Respiratory Effort Cardiovascular: Regular Rate, Regular Rhythm GI/Abdominal Exam: Normal Bowel Sounds, Soft, Non-Tender, No Organomegaly, No Distention, No Abnormal Bruit, No Mass, Pelvis Stable Neurological: Cranial Nerves Intact, Reflexes Equal Bilateral Neuro Extensive - Mental Status: Alert, Oriented x3, Normal Mood/Affect, Normal Cognition Neuro Extensive - Motor, Sensory, Reflexes: CN II-XII Intact (There is erythema, edema, tenderness to palpation of the left lower extremity), Normal Gait, Normal Reflexes - Patient Data Lab Results Last 24 hrs: Laboratory Results - last 24 hr 10/16/20 10/16/20 10/16/20 Range/Units 10:52 10:52 10:52 WBC 30.6 H* (5.0-10.0) 10^3/uL RBC 6.35 H (4.6-6.2) 10^6/uL Hgb 15.7 (14.0-18.0) g/dL Hct 51.8 (40.0-54.0) % MCV 81.6 (80-100) fL MCH 24.7 L (27.0-34.0) pg MCHC 30.3 L (33.0-35.0) g/dL Plt Count 351 (150-450) 10^3/uL Neut % (Auto) 89.0 H (42.2-75.2) % Lymph % (Auto) 3.8 L (20.5-50.1) % [place] % (Auto) 6.8 (2-8) % Eos % (Auto) 0.2 L (1.0-3.0) % Baso % (Auto) 0.2 (0.0-1.0) % Add Manual Diff Yes Neutrophils % (Manual) 92 H (42-75) % Band Neutrophils % 3 % Lymphocytes % (Manual) 1 L (20-50) % Monocytes % (Manual) 3 (2-8) % Eosinophils % (Manual) 1 (1-3) % Hypochromasia 1+ slight PT 14.3 H (9.0-12.0) SEC INR 1.4 H (0.9-1.2) D-Dimer, Quantitative (0-400) ng/mL Sodium 145 (136-145) mmol/L Potassium 3.7 (3.5-5.1) mmol/L Chloride 102 (98-107) mmol/L Carbon Dioxide 35 H (21-32) mmol/L Anion Gap 11.7 (7-13) mEq/L BUN 18 (7-18) mg/dL Creatinine 1.41 H (0.70-1.30) mg/dL Est Cr Clr Drug Dosing 44.58 mL/min Estimated GFR (MDRD) 49 BUN/Creatinine Ratio 12.8 (No establ ref range) Glucose 179 H (70-99) mg/dL Lactic Acid (0.4-2.0) mmol/L Calcium 8.3 L (8.5-10.1) mg/dL Total Bilirubin 1.3 H (0.2-1.0) mg/dL AST 9 L (15-37) U/L ALT 19 (16-63) U/L Alkaline Phosphatase 73 (46-116) U/L Total Protein 6.1 L (6.4-8.2) g/dL Albumin 3.2 L (3.4-5.0) g/dL Globulin 2.9 Albumin/Globulin Ratio 1.10 SARS-CoV-2 RNA (SHAHRZAD) (NEGATIVE) 10/16/20 10/16/20 10/16/20 Range/Units 10:52 10:52 11:43 WBC (5.0-10.0) 10^3/uL RBC (4.6-6.2) 10^6/uL Hgb (14.0-18.0) g/dL Hct (40.0-54.0) % MCV (80-100) fL MCH (27.0-34.0) pg MCHC (33.0-35.0) g/dL Plt Count (150-450) 10^3/uL Neut % (Auto) (42.2-75.2) % Lymph % (Auto) (20.5-50.1) % [place] % (Auto) (2-8) % Eos % (Auto) (1.0-3.0) % Baso % (Auto) (0.0-1.0) % Add Manual Diff Neutrophils % (Manual) (42-75) % Band Neutrophils % % Lymphocytes % (Manual) (20-50) % Monocytes % (Manual) (2-8) % Eosinophils % (Manual) (1-3) % Hypochromasia PT (9.0-12.0) SEC INR (0.9-1.2) D-Dimer, Quantitative 133 (0-400) ng/mL Sodium (136-145) mmol/L Potassium (3.5-5.1) mmol/L Chloride (98-107) mmol/L Carbon Dioxide (21-32) mmol/L Anion Gap (7-13) mEq/L BUN (7-18) mg/dL Creatinine (0.70-1.30) mg/dL Est Cr Clr Drug Dosing mL/min Estimated GFR (MDRD) BUN/Creatinine Ratio (No establ ref range) Glucose (70-99) mg/dL Lactic Acid 2.0 (0.4-2.0) mmol/L Calcium (8.5-10.1) mg/dL Total Bilirubin (0.2-1.0) mg/dL AST (15-37) U/L ALT (16-63) U/L Alkaline Phosphatase (46-116) U/L Total Protein (6.4-8.2) g/dL Albumin (3.4-5.0) g/dL Globulin Albumin/Globulin Ratio SARS-CoV-2 RNA (SHAHRZAD) Negative (NEGATIVE) Result Diagrams: 10/16/20 10:52 10/16/20 10:52 Good Results Last 24 hrs: Microbiology 10/16/20 10:59 Anaerobic Blood Culture - Final Blood - Arm, Left Problem List Initiated/Reviewed/Updated: Yes Orders Last 24hrs: Active Orders 24 hr Category Date Time Status Admission Diagnosis [ADT] Stat ADT 10/16/20 11:52 Ordered Admission Status [Patient Status] [ADT] Routine ADT 10/16/20 11:52 Active CPAP Adult [RT BiPAP/CPAP] [RC] ASDIRECTED Care 10/16/20 13:01 Ordered Communication Order [RC] 08,20 Care 10/16/20 12:59 Ordered Oxygen Therapy [RC] PRN Care 10/16/20 12:58 Ordered Peripheral IV Care [RC] . DIRECTED Care 10/16/20 12:59 Ordered Up With Assistance [RC] ASDIRECTED Care 10/16/20 12:58 Ordered Vital Signs [RC] Q4H Care 10/16/20 12:58 Ordered Heart Healthy Diet [DIET] Diet 10/16/20 Lunch Ordered CBC WITH AUTO DIFF [HEME] Routine Lab 10/17/20 05:00 Ordered COMPREHENSIVE METABOLIC PN,CMP [CHEM] Routine Lab 10/17/20 05:00 Ordered CULTURE BLOOD [BC] Stat Lab 10/16/20 10:52 Received CULTURE BLOOD [BC] Stat Lab 10/16/20 10:59 Results Acetaminophen [TylenoL] Med 10/16/20 12:58 Ordered 650 mg PO Q4H PRN Ondansetron [Zofran] Med 10/16/20 12:58 Ordered 4 mg IVPUSH Q4H PRN Pharmacy to Dose - Vancomycin Med 10/16/20 13:00 Ordered 1 dose .XX ASDIRECTED Piperacillin/Tazobactam [Zosyn] 3.375 gm Med 10/16/20 13:00 Ordered Sodium Chloride 0.9% [Normal Saline] 100 ml IV Q6H Sodium Chloride 0.9% [Normal Saline] 1,000 ml Med 10/16/20 13:00 Ordered IV ASDIRECTED Sodium Chloride 0.9% [Saline Flush] Med 10/16/20 12:58 Ordered 10 ml FLUSH ASDIRECTED PRN Blood Culture x2 Reflex Set [OM.PC] Stat Oth 10/16/20 10:38 Ordered Peripheral IV Insertion Adult [OM.PC] Routine Oth 10/16/20 12:58 Ordered Resuscitation Status Routine Resus Stat 10/16/20 12:58 Ordered Medication Orders Acetaminophen (Acetaminophen 325 Mg Tab) 650 mg PO Q4H PRN PRN Reason: Pain (Mild 1-3)/fever Sodium Chloride (Normal Saline) 1,000 mls @ 75 mls/hr IV ASDIRECTED MICHAEL Ondansetron HCl (Ondansetron 4 Mg/2 Ml Sdv) 4 mg IVPUSH Q4H PRN PRN Reason: Nausea/Vomiting Sodium Chloride (Sodium Chloride 0.9% 10 Ml Syringe) 10 ml FLUSH ASDIRECTED PRN PRN Reason: Keep Vein Open Assessment/Plan Comment:: Left lower extremity cellulitis. We will demarcate and date the margin of erythema daily to ensure resection. IV vancomycin to be dosed by pharmacy plus Zosyn 3.375 g IV every 6 hours Polycythemia vera. Outpatient follow with hematology/oncology upon discharge Hyperbilirubinemia. Will monitor LFTs periodically with CMP Acute renal insufficiency. Will monitor creatinine level intermittently. IV normal saline 75 mils per hour Coagulopathy. Will monitor PT/INR periodically Leukocytosis, chronic. Outpatient follow-up with hematology/oncology upon discharge Atrial fibrillation Seasonal allergies COPD, O2 dependent 3 L Congestive heart failure Coronary artery disease, status post ME, status post [place] GERD Hyperlipidemia Hypertension Obesity. Patient be counseled regarding lifestyle modification Degenerative joint disease Polymyalgia rheumatica Left renal cell carcinoma, status post cryotherapy. Patient Bruna he is in remission. Outpatient follow-up with hematology/oncology upon discharge History of vitamin D deficiency Obstructive sleep apnea. CPAP/BiPAP: Okay to use home device and/or pressure when sleeping if the patient uses CPAP/BiPAP at home Degenerative disc disease DVT prophylaxis. Home medication reconciliation pending as the patient is on oral anticoagulation therapy at home for his history of atrial fibrillation Disposition: Anticipate discharge in 70 to 96 hours. At the time of admission, the patient's home medications were not yet inputted to the EMR/DHR system. Once they are, they will be reviewed and reconciled
[2020-10-16] MEDS: Piperacillin/Tazobactam 3.375 GM in Sodium Chloride 0.9% 100 ML IV SCH ×3 (13:29→23:13)
[2020-10-16] MEDS ORDERED: Non-Formulary Medication 1 Each (Cetirizine Hcl [Zyrtec] 10 MG Capsule) PO PRN (16:13)
[2020-10-16] MEDS ORDERED: [UNRECOGNIZED DRUG - OTHER] BC PRN (16:13)
[2020-10-16] MEDS: Albuterol/Ipratropium 3.0-0.5 MG/3 ML Neb Soln INH PRN (16:47)
[2020-10-16] MEDS: Budesonide 0.5 MG/2 ML Neb Susp INH SCH (17:50)
[2020-10-16] MEDS: Rosuvastatin 10 MG Tab PO SCH (20:15)
[2020-10-16] MEDS: Apixaban 5 MG Tab PO SCH (20:15)
[2020-10-16] MEDS: Metoprolol Tartrate 50 MG Tab PO SCH (20:15)
[2020-10-16] MEDS: ARFORMOTEROL 15 MCG/2 ML INH SCH (20:21)
[2020-10-16] MEDS: Acetaminophen/HYDROcodone 325-5 MG Tab PO PRN (23:10)
[2020-10-17] MEDS ORDERED: Albuterol/Ipratropium 3.0-0.5 MG/3 ML Neb Soln INH ONE (04:40)
[2020-10-17] MEDS ORDERED: Acetaminophen/HYDROcodone 325-5 MG Tab PO ONE (04:40)
[2020-10-17] MEDS ORDERED: Pantoprazole 40 MG Tab.CR PO ONE (06:00)
[2020-10-17] MEDS ORDERED: Sodium Chloride 0.9% 100 ML AdvBag IV ONE (06:15)
[2020-10-17 07:00] LABS: ANION GAP 8.6 mEq/L (7-13)
[2020-10-17] MEDS: ARFORMOTEROL 15 MCG/2 ML INH SCH ×3 (07:25→18:09)
[2020-10-17] MEDS: Budesonide 0.5 MG/2 ML Neb Susp INH SCH ×2 (07:27→18:08)
[2020-10-17] MEDS: Pantoprazole 40 MG Tab.CR PO SCH (07:47)
[2020-10-17] MEDS: Piperacillin/Tazobactam 3.375 GM in Sodium Chloride 0.9% 100 ML IV SCH ×3 (07:47→17:41)
--- NOTE | 2020-10-17 07:48 | PCM.PN ---
- General Info Date of Service: 10/17/20 - Review of Systems General: Reports: No Symptoms HEENT: Reports: No Symptoms Pulmonary: Reports: No Symptoms Cardiovascular: Reports: No Symptoms Gastrointestinal: Reports: No Symptoms Genitourinary: Reports: No Symptoms Musculoskeletal: Reports: No Symptoms Skin: Reports: No Symptoms Neurological: Reports: No Symptoms Psychiatric: Reports: No Symptoms - Patient Data Vitals - Most Recent: Last Vital Signs Temp 97.2 F 10/17/20 04:00 Pulse 71 10/17/20 07:30 Resp 20 10/17/20 04:00 BP 107/63 10/17/20 04:00 Pulse Ox 99 10/17/20 07:30 Weight - Most Recent: 237 lb 3.2 oz I&O - Last 24 Hours: Intake & Output 10/16/20 10/17/20 10/17/20 22:59 06:59 14:59 Intake Total 440 150 Output Total 850 400 Balance -410 -250 Lab Results Last 24 Hours: Laboratory Results - last 24 hr 10/16/20 10/16/20 10/16/20 Range/Units 10:52 10:52 10:52 WBC 30.6 H* (5.0-10.0) 10^3/uL RBC 6.35 H (4.6-6.2) 10^6/uL Hgb 15.7 (14.0-18.0) g/dL Hct 51.8 (40.0-54.0) % MCV 81.6 (80-100) fL MCH 24.7 L (27.0-34.0) pg MCHC 30.3 L (33.0-35.0) g/dL Plt Count 351 (150-450) 10^3/uL Neut % (Auto) 89.0 H (42.2-75.2) % Lymph % (Auto) 3.8 L (20.5-50.1) % Hawkins % (Auto) 6.8 (2-8) % Eos % (Auto) 0.2 L (1.0-3.0) % Baso % (Auto) 0.2 (0.0-1.0) % Add Manual Diff Yes Neutrophils % (Manual) 92 H (42-75) % Band Neutrophils % 3 % Lymphocytes % (Manual) 1 L (20-50) % Monocytes % (Manual) 3 (2-8) % Eosinophils % (Manual) 1 (1-3) % Hypochromasia 1+ slight PT 14.3 H (9.0-12.0) SEC INR 1.4 H (0.9-1.2) D-Dimer, Quantitative (0-400) ng/mL Sodium 145 (136-145) mmol/L Potassium 3.7 (3.5-5.1) mmol/L Chloride 102 (98-107) mmol/L Carbon Dioxide 35 H (21-32) mmol/L Anion Gap 11.7 (7-13) mEq/L BUN 18 (7-18) mg/dL Creatinine 1.41 H (0.70-1.30) mg/dL Est Cr Clr Drug Dosing 44.58 mL/min Estimated GFR (MDRD) 49 BUN/Creatinine Ratio 12.8 (No establ ref range) Glucose 179 H (70-99) mg/dL Lactic Acid (0.4-2.0) mmol/L Calcium 8.3 L (8.5-10.1) mg/dL Total Bilirubin 1.3 H (0.2-1.0) mg/dL AST 9 L (15-37) U/L ALT 19 (16-63) U/L Alkaline Phosphatase 73 (46-116) U/L Total Protein 6.1 L (6.4-8.2) g/dL Albumin 3.2 L (3.4-5.0) g/dL Globulin 2.9 Albumin/Globulin Ratio 1.10 Digoxin (0.9-2.0) ng/mL SARS-CoV-2 RNA (SHAHRZAD) (NEGATIVE) 10/16/20 10/16/20 10/16/20 Range/Units 10:52 10:52 10:52 WBC (5.0-10.0) 10^3/uL RBC (4.6-6.2) 10^6/uL Hgb (14.0-18.0) g/dL Hct (40.0-54.0) % MCV (80-100) fL MCH (27.0-34.0) pg MCHC (33.0-35.0) g/dL Plt Count (150-450) 10^3/uL Neut % (Auto) (42.2-75.2) % Lymph % (Auto) (20.5-50.1) % Hawkins % (Auto) (2-8) % Eos % (Auto) (1.0-3.0) % Baso % (Auto) (0.0-1.0) % Add Manual Diff Neutrophils % (Manual) (42-75) % Band Neutrophils % % Lymphocytes % (Manual) (20-50) % Monocytes % (Manual) (2-8) % Eosinophils % (Manual) (1-3) % Hypochromasia PT (9.0-12.0) SEC INR (0.9-1.2) D-Dimer, Quantitative 133 (0-400) ng/mL Sodium (136-145) mmol/L Potassium (3.5-5.1) mmol/L Chloride (98-107) mmol/L Carbon Dioxide (21-32) mmol/L Anion Gap (7-13) mEq/L BUN (7-18) mg/dL Creatinine (0.70-1.30) mg/dL Est Cr Clr Drug Dosing mL/min Estimated GFR (MDRD) BUN/Creatinine Ratio (No establ ref range) Glucose (70-99) mg/dL Lactic Acid 2.0 (0.4-2.0) mmol/L Calcium (8.5-10.1) mg/dL Total Bilirubin (0.2-1.0) mg/dL AST (15-37) U/L ALT (16-63) U/L Alkaline Phosphatase (46-116) U/L Total Protein (6.4-8.2) g/dL Albumin (3.4-5.0) g/dL Globulin Albumin/Globulin Ratio Digoxin 0.5 L (0.9-2.0) ng/mL SARS-CoV-2 RNA (SHAHRZAD) (NEGATIVE) 10/16/20 10/17/20 10/17/20 Range/Units 11:43 06:26 06:26 WBC 22.1 H (5.0-10.0) 10^3/uL RBC 5.51 (4.6-6.2) 10^6/uL Hgb 13.6 L D (14.0-18.0) g/dL Hct 45.9 (40.0-54.0) % MCV 83.3 (80-100) fL MCH 24.7 L (27.0-34.0) pg MCHC 29.6 L (33.0-35.0) g/dL Plt Count 292 (150-450) 10^3/uL Neut % (Auto) 89.4 H (42.2-75.2) % Lymph % (Auto) 3.7 L (20.5-50.1) % Hawkins % (Auto) 5.9 (2-8) % Eos % (Auto) 0.7 L (1.0-3.0) % Baso % (Auto) 0.3 (0.0-1.0) % Add Manual Diff Neutrophils % (Manual) (42-75) % Band Neutrophils % % Lymphocytes % (Manual) (20-50) % Monocytes % (Manual) (2-8) % Eosinophils % (Manual) (1-3) % Hypochromasia PT (9.0-12.0) SEC INR (0.9-1.2) D-Dimer, Quantitative (0-400) ng/mL Sodium 146 H (136-145) mmol/L Potassium 3.6 (3.5-5.1) mmol/L Chloride 106 (98-107) mmol/L Carbon Dioxide 35 H (21-32) mmol/L Anion Gap 8.6 (7-13) mEq/L BUN 20 H (7-18) mg/dL Creatinine 1.20 (0.70-1.30) mg/dL Est Cr Clr Drug Dosing 52.38 mL/min Estimated GFR (MDRD) 59 BUN/Creatinine Ratio 16.7 (No establ ref range) Glucose 182 H (70-99) mg/dL Lactic Acid (0.4-2.0) mmol/L Calcium 7.7 L (8.5-10.1) mg/dL Total Bilirubin 1.0 (0.2-1.0) mg/dL AST 6 L (15-37) U/L ALT 14 L (16-63) U/L Alkaline Phosphatase 57 (46-116) U/L Total Protein 5.1 L (6.4-8.2) g/dL Albumin 2.4 L (3.4-5.0) g/dL Globulin 2.7 Albumin/Globulin Ratio 0.89 Digoxin (0.9-2.0) ng/mL SARS-CoV-2 RNA (SHAHRZAD) Negative (NEGATIVE) Good Results Last 24 Hours: Microbiology 10/16/20 10:59 Anaerobic Blood Culture - Final Blood - Arm, Left Med Orders - Current: Current Medications Acetaminophen (Acetaminophen 325 Mg Tab) 650 mg PO Q4H PRN PRN Reason: Pain (Mild 1-3)/fever Hydrocodone Bitart/Acetaminophen (Acetaminophen/Hydrocodone 325-5 Mg Tab) 1 tab PO Q4H PRN PRN Reason: Pain (severe 7-10) Last Admin: 10/16/20 23:10 Dose: 1 tab Documented by: Albuterol/Ipratropium (Albuterol/Ipratropium 3.0-0.5 Mg/3 Ml Neb Soln) 3 ml INH Q4H PRN PRN Reason: Shortness of Breath Last Admin: 10/16/20 16:47 Dose: 3 ml Documented by: Apixaban (Apixaban 5 Mg Tab) 5 mg PO BID [facility] Last Admin: 10/16/20 20:15 Dose: 5 mg Documented by: Budesonide (Budesonide 0.5 Mg/2 Ml Neb Susp) 0.5 mg INH BIDRT [facility] Last Admin: 10/17/20 07:27 Dose: 0.5 mg Documented by: Clopidogrel Bisulfate (Clopidogrel 75 Mg Tab) 75 mg PO DAILY [facility] Digoxin (Digoxin 125 Mcg Tab) 125 mcg PO DAILY@0800 [facility] Diltiazem HCl (Diltiazem 240 Mg Cap.Er) 240 mg PO DAILY [facility] Hydroxyurea (Hydroxyurea 500 Mg Cap) 500 mg PO MoWeFr@0800 [facility] Piperacillin Sod/Tazobactam (Sod 3.375 gm/ Sodium Chloride) 100 mls @ 200 mls/hr IV Q6HR [facility] Last Admin: 10/16/20 23:13 Dose: 200 mls/hr Documented by: Vancomycin HCl 1.25 gm/ Sodium (Chloride) 250 mls @ 166.667 mls/hr IV Q24H [facility] Last Admin: 10/16/20 14:06 Dose: 166.667 mls/hr Documented by: Metoprolol Tartrate (Metoprolol Tartrate 50 Mg Tab) 100 mg PO BID [facility] Last Admin: 10/16/20 20:15 Dose: 100 mg Documented by: Arformoterol [ Brovana] 15 Mcg/2 Ml Neb Own Med 0 mcg INH BID [facility] Last Admin: 10/17/20 07:25 Dose: 15 mcg Documented by: Non-Formulary Medication (Cetirizine Hcl [Zyrtec]) 10 mg PO DAILY PRN PRN Reason: Allergies Non-Formulary Medication (Nicotine Polacrilex [Nicotine Lozenge]) 2 mg BC Q2H PRN PRN Reason: Other Non-Formulary Medication (Ketotifen [Ketotifen 0.025% Ophth Soln]) 1 drop EYEBOTH BID [facility] Ondansetron HCl (Ondansetron 4 Mg/2 Ml Sdv) 4 mg IVPUSH Q4H PRN PRN Reason: Nausea/Vomiting Pantoprazole Sodium (Pantoprazole 40 Mg Tab.Cr) 40 mg PO ACBREAKFAST [facility] Prednisone (Prednisone 10 Mg Tab) 10 mg PO DAILY [facility] Rosuvastatin Calcium (Rosuvastatin 10 Mg Tab) 5 mg PO BEDTIME [facility] Last Admin: 10/16/20 20:15 Dose: 5 mg Documented by: Senna/Docusate Sodium (Docusate Sodium/Sennosides 50-8.6 Mg Tab) 2 tab PO BID PRN PRN Reason: Constipation Sodium Chloride (Sodium Chloride 0.9% 10 Ml Syringe) 10 ml FLUSH ASDIRECTED PRN PRN Reason: Keep Vein Open Tiotropium [place] (Tiotropium Inhaler 18 Mcg Inhalation Powder Cap Kit Of 5) 18 mcg INH DAILY [facility] Vancomycin HCl (Pharmacy To Dose - Vancomycin) 0 dose .XX ASDIRECTED [facility] Discontinued Medications Cefazolin Sodium/Dextrose (Ancef 2 Gm/50 Ml) 50 mls @ 100 mls/hr IV ONETIME ONE Stop: 10/16/20 12:25 Last Admin: 10/16/20 12:09 Dose: 100 mls/hr Documented by: Sodium Chloride (Normal Saline) 1,000 mls @ 75 mls/hr IV ASDIRECTED [facility] Last Admin: 10/16/20 13:29 Dose: 75 mls/hr Documented by: - Exam General: Alert, Oriented HEENT: Pupils Equal, Pupils Reactive, EOMI, Mucous Membr. Moist/[place] Neck: Supple Lungs: Decreased Breath Sounds Cardiovascular: Regular Rate, Regular Rhythm GI/Abdominal Exam: Normal Bowel Sounds, Soft, Non-Tender, No Organomegaly, No Distention, No Abnormal Bruit, No Mass, Pelvis Stable Extremities: Redness Wound/Incisions: Healing Well Neurological: No New Focal Deficit Psy/Mental Status: Alert, Normal Affect, Normal Mood - Patient Data Lab Results Last 24 hrs: Laboratory Results - last 24 hr 10/16/20 10/16/20 10/16/20 Range/Units 10:52 10:52 10:52 WBC 30.6 H* (5.0-10.0) 10^3/uL RBC 6.35 H (4.6-6.2) 10^6/uL Hgb 15.7 (14.0-18.0) g/dL Hct 51.8 (40.0-54.0) % MCV 81.6 (80-100) fL MCH 24.7 L (27.0-34.0) pg MCHC 30.3 L (33.0-35.0) g/dL Plt Count 351 (150-450) 10^3/uL Neut % (Auto) 89.0 H (42.2-75.2) % Lymph % (Auto) 3.8 L (20.5-50.1) % Hawkins % (Auto) 6.8 (2-8) % Eos % (Auto) 0.2 L (1.0-3.0) % Baso % (Auto) 0.2 (0.0-1.0) % Add Manual Diff Yes Neutrophils % (Manual) 92 H (42-75) % Band Neutrophils % 3 % Lymphocytes % (Manual) 1 L (20-50) % Monocytes % (Manual) 3 (2-8) % Eosinophils % (Manual) 1 (1-3) % Hypochromasia 1+ slight PT 14.3 H (9.0-12.0) SEC INR 1.4 H (0.9-1.2) D-Dimer, Quantitative (0-400) ng/mL Sodium 145 (136-145) mmol/L Potassium 3.7 (3.5-5.1) mmol/L Chloride 102 (98-107) mmol/L Carbon Dioxide 35 H (21-32) mmol/L Anion Gap 11.7 (7-13) mEq/L BUN 18 (7-18) mg/dL Creatinine 1.41 H (0.70-1.30) mg/dL Est Cr Clr Drug Dosing 44.58 mL/min Estimated GFR (MDRD) 49 BUN/Creatinine Ratio 12.8 (No establ ref range) Glucose 179 H (70-99) mg/dL Lactic Acid (0.4-2.0) mmol/L Calcium 8.3 L (8.5-10.1) mg/dL Total Bilirubin 1.3 H (0.2-1.0) mg/dL AST 9 L (15-37) U/L ALT 19 (16-63) U/L Alkaline Phosphatase 73 (46-116) U/L Total Protein 6.1 L (6.4-8.2) g/dL Albumin 3.2 L (3.4-5.0) g/dL Globulin 2.9 Albumin/Globulin Ratio 1.10 Digoxin (0.9-2.0) ng/mL SARS-CoV-2 RNA (SHAHRZAD) (NEGATIVE) 10/16/20 10/16/20 10/16/20 Range/Units 10:52 10:52 10:52 WBC (5.0-10.0) 10^3/uL RBC (4.6-6.2) 10^6/uL Hgb (14.0-18.0) g/dL Hct (40.0-54.0) % MCV (80-100) fL MCH (27.0-34.0) pg MCHC (33.0-35.0) g/dL Plt Count (150-450) 10^3/uL Neut % (Auto) (42.2-75.2) % Lymph % (Auto) (20.5-50.1) % Hawkins % (Auto) (2-8) % Eos % (Auto) (1.0-3.0) % Baso % (Auto) (0.0-1.0) % Add Manual Diff Neutrophils % (Manual) (42-75) % Band Neutrophils % % Lymphocytes % (Manual) (20-50) % Monocytes % (Manual) (2-8) % Eosinophils % (Manual) (1-3) % Hypochromasia PT (9.0-12.0) SEC INR (0.9-1.2) D-Dimer, Quantitative 133 (0-400) ng/mL Sodium (136-145) mmol/L Potassium (3.5-5.1) mmol/L Chloride (98-107) mmol/L Carbon Dioxide (21-32) mmol/L Anion Gap (7-13) mEq/L BUN (7-18) mg/dL Creatinine (0.70-1.30) mg/dL Est Cr Clr Drug Dosing mL/min Estimated GFR (MDRD) BUN/Creatinine Ratio (No establ ref range) Glucose (70-99) mg/dL Lactic Acid 2.0 (0.4-2.0) mmol/L Calcium (8.5-10.1) mg/dL Total Bilirubin (0.2-1.0) mg/dL AST (15-37) U/L ALT (16-63) U/L Alkaline Phosphatase (46-116) U/L Total Protein (6.4-8.2) g/dL Albumin (3.4-5.0) g/dL Globulin Albumin/Globulin Ratio Digoxin 0.5 L (0.9-2.0) ng/mL SARS-CoV-2 RNA (SHAHRZAD) (NEGATIVE) 10/16/20 10/17/20 10/17/20 Range/Units 11:43 06:26 06:26 WBC 22.1 H (5.0-10.0) 10^3/uL RBC 5.51 (4.6-6.2) 10^6/uL Hgb 13.6 L D (14.0-18.0) g/dL Hct 45.9 (40.0-54.0) % MCV 83.3 (80-100) fL MCH 24.7 L (27.0-34.0) pg MCHC 29.6 L (33.0-35.0) g/dL Plt Count 292 (150-450) 10^3/uL Neut % (Auto) 89.4 H (42.2-75.2) % Lymph % (Auto) 3.7 L (20.5-50.1) % Hawkins % (Auto) 5.9 (2-8) % Eos % (Auto) 0.7 L (1.0-3.0) % Baso % (Auto) 0.3 (0.0-1.0) % Add Manual Diff Neutrophils % (Manual) (42-75) % Band Neutrophils % % Lymphocytes % (Manual) (20-50) % Monocytes % (Manual) (2-8) % Eosinophils % (Manual) (1-3) % Hypochromasia PT (9.0-12.0) SEC INR (0.9-1.2) D-Dimer, Quantitative (0-400) ng/mL Sodium 146 H (136-145) mmol/L Potassium 3.6 (3.5-5.1) mmol/L Chloride 106 (98-107) mmol/L Carbon Dioxide 35 H (21-32) mmol/L Anion Gap 8.6 (7-13) mEq/L BUN 20 H (7-18) mg/dL Creatinine 1.20 (0.70-1.30) mg/dL Est Cr Clr Drug Dosing 52.38 mL/min Estimated GFR (MDRD) 59 BUN/Creatinine Ratio 16.7 (No establ ref range) Glucose 182 H (70-99) mg/dL Lactic Acid (0.4-2.0) mmol/L Calcium 7.7 L (8.5-10.1) mg/dL Total Bilirubin 1.0 (0.2-1.0) mg/dL AST 6 L (15-37) U/L ALT 14 L (16-63) U/L Alkaline Phosphatase 57 (46-116) U/L Total Protein 5.1 L (6.4-8.2) g/dL Albumin 2.4 L (3.4-5.0) g/dL Globulin 2.7 Albumin/Globulin Ratio 0.89 Digoxin (0.9-2.0) ng/mL SARS-CoV-2 RNA (SHAHRZAD) Negative (NEGATIVE) Result Diagrams: 10/17/20 06:26 10/17/20 06:26 Good Results Last 24 hrs: Microbiology 10/16/20 10:59 Anaerobic Blood Culture - Final Blood - Arm, Left Sepsis Event Note - Evaluation Sepsis Screening Result: Sepsis Risk - Focused Exam Vital Signs: Vital Signs Temp Pulse Pulse Resp BP BP Pulse Ox 10/17/20 07:30 71 10/17/20 04:00 97.2 F 50 L 20 107/63 92 L 10/17/20 01:23 114/68 10/17/20 00:00 97.9 F 67 20 91/55 L 96 10/16/20 20:15 113 H 109/65 10/16/20 20:00 98.0 F 100 20 109/65 94 L Pulse Ox 10/17/20 07:30 99 10/17/20 04:00 10/17/20 01:23 10/17/20 00:00 10/16/20 20:15 10/16/20 20:00 - Problem List Review Problem List Initiated/Reviewed/Updated: Yes - My Orders Last 24 Hours: My Active Orders 10/16/20 Lunch Heart Healthy Diet [DIET] 10/16/20 12:58 Oxygen Therapy [RC] .PRN Up With Assistance [RC] ASDIRECTED Vital Signs [RC] 00,04,08,12,16,20 Acetaminophen [TylenoL] 650 mg PO Q4H PRN Ondansetron [Zofran] 4 mg IVPUSH Q4H PRN Sodium Chloride 0.9% [Saline Flush] 10 ml FLUSH ASDIRECTED PRN Peripheral IV Insertion Adult [OM.PC] Routine Resuscitation Status Routine 10/16/20 12:59 Communication Order [RC] 08,20 Peripheral IV Care [RC] ,10/16/20 13:00 Pharmacy to Dose - Vancomycin 0 dose .XX ASDIRECTED 10/16/20 13:01 CPAP Adult [RT BiPAP/CPAP] [RC] ASDIRECTED 10/16/20 14:00 Piperacillin/Tazobactam [Zosyn] 3.375 gm Sodium Chloride 0.9% [Normal Saline] 100 ml IV Q6HR 10/16/20 15:00 Vancomycin 1.25 gm Sodium Chloride 0.9% [Normal Saline (AdvBag)] 250 ml IV Q24H 10/16/20 16:13 Albuterol/Ipratropium [DuoNeb 3.0-0.5 MG/3 ML] 3 ml INH Q4H PRN Cetirizine HCl [Zyrtec] 10 mg PO DAILY PRN Docusate Sodium/Sennosides [Senna Plus] 2 tab PO BID PRN Nicotine Polacrilex [Nicotine Lozenge] 2 mg BC Q2H PRN 10/16/20 16:17 RT Aerosol Therapy [RC] ASDIRECTED RT Post Treatment Assessment [RC] Click to Edit RT Pre-Treatment Assessment [RC] Click to Edit 10/16/20 18:00 Budesonide [Pulmicort] 0.5 mg INH BIDRT 10/16/20 21:00 Apixaban [Eliquis] 5 mg PO BID Arformoterol [Brovana] 0 mcg INH BID Ketotifen [Ketotifen 0.025% Ophth Soln] 1 drop EYEBOTH BID Metoprolol Tartrate [Lopressor] 100 mg PO BID Rosuvastatin [Crestor] 5 mg PO BEDTIME 10/16/20 22:48 Acetaminophen/HYDROcodone [[place] 325-5 MG] 1 tab PO Q4H PRN 10/17/20 06:00 Pantoprazole [ProTONIX] 40 mg PO ACBREAKFAST 10/17/20 07:43 Communication Order [RC] 10/17/20 08:00 Digoxin [Lanoxin] 125 mcg PO DAILY@0800 Hydroxyurea [Hydrea] 500 mg PO MoWeFr@0800 10/17/20 09:00 Clopidogrel [Plavix] 75 mg PO DAILY Diltiazem [Dilacor XR] 240 mg PO DAILY Tiotropium [Spiriva HandiHaler] 18 mcg INH DAILY predniSONE 10 mg PO DAILY 10/18/20 05:00 BASIC METABOLIC PANEL,BMP [CHEM] Routine CBC WITH AUTO DIFF [HEME] Routine INR,PT,PROTHROMBIN TIME [COAG] Routine 10/19/20 14:30 VANCOMYCIN TROUGH [CHEM] Timed - Plan Plan:: Left lower extremity cellulitis. We will demarcate and date the margin of erythema daily to ensure resection. IV vancomycin to be dosed by pharmacy plus Zosyn 3.375 g IV every 6 hours History of polycythemia vera with current anemia. Outpatient follow with hematology/oncology upon discharge. Hydroxyurea 500 mg p.o. q. Thursday, Thursday, and Thursday Hyperbilirubinemia. Will monitor LFTs periodically with CMP Acute renal insufficiency. Will monitor creatinine level intermittently. Coagulopathy. Will monitor PT/INR periodically Leukocytosis, chronic. Baseline white blood cell count approximately 20. Outpatient follow-up with hematology/oncology upon discharge. Hydroxyurea 500 mg p.o. q. Thursday, Thursday, and Thursday Atrial fibrillation. Eliquis 5 mg p.o. twice daily plus digoxin 100.5 mg p.o. daily plus [place] XR 240 mg p.o. daily plus metoprolol 100 mg p.o. twice daily Seasonal allergies COPD, O2 dependent 3 L. Brovana 7.5 mcg inhaled twice daily plus Pulmicort 0.5 mg inhaled twice daily plus Spiriva 18 mcg inhaled daily plus prednisone 10 mg p.o. daily Congestive heart failure. Digoxin 125 mcg p.o. daily plus metoprolol 100 mg p.o. twice daily Coronary artery disease, status post SD, status post [place]. Plavix 75 mg p.o. daily plus Crestor 5 mg p.o. nightly plus metoprolol 100 mg p.o. twice daily GERD. Prilosec 20 mg p.o. daily Hyperlipidemia. Crestor 5 mg p.o. nightly Hypertension. Dilacor XR 240 mg p.o. daily plus metoprolol 100 mg p.o. twice daily Obesity. Patient be counseled regarding lifestyle modification Degenerative joint disease Polymyalgia rheumatica Left renal cell carcinoma, status post cryotherapy. Patient Bruna he is in remission. Outpatient follow-up with hematology/oncology upon discharge History of vitamin D deficiency Obstructive sleep apnea. CPAP/BiPAP: Okay to use home device and/or pressure when sleeping if the patient uses CPAP/BiPAP at home Degenerative disc disease DVT prophylaxis. Eliquis 5 mg p.o. twice daily Disposition: Anticipate discharge in 48 to 72 hours
[2020-10-17] MEDS: Apixaban 5 MG Tab PO SCH ×2 (09:36→21:48)
[2020-10-17] MEDS: Clopidogrel 75 MG Tab PO SCH (09:36)
[2020-10-17] MEDS: Metoprolol Tartrate 50 MG Tab PO SCH ×2 (09:36→21:48)
[2020-10-17] MEDS: Digoxin 125 MCG Tab PO SCH (09:37)
[2020-10-17] MEDS: Hydroxyurea 500 MG Cap PO SCH (09:38)
[2020-10-17] MEDS: Loratadine 10 MG Tab PO SCH (09:38)
[2020-10-17] MEDS: predniSONE 10 MG Tab PO SCH (09:38)
[2020-10-17] MEDS: Diltiazem 240 MG Cap.ER PO SCH (09:41)
[2020-10-17] MEDS: Tiotropium Inhaler 18 MCG Inhalation Powder Cap Kit of 5 INH SCH (09:45)
[2020-10-17] MEDS: Sodium Chloride 0.9% 10 ML Syringe FLUSH PRN (12:43)
[2020-10-17] MEDS: Acetaminophen/HYDROcodone 325-5 MG Tab PO PRN ×2 (12:45→17:52)
[2020-10-17] MEDS ORDERED: KETOTIFEN 0.025% EYEBOTH PRN (13:56)
[2020-10-17] MEDS: NICOTINE 2 MG BUCCAL PRN (14:00)
[2020-10-17] MEDS: Albuterol/Ipratropium 3.0-0.5 MG/3 ML Neb Soln INH PRN (14:09)
[2020-10-17] MEDS: Rosuvastatin 10 MG Tab PO SCH (21:48)
[2020-10-18] MEDS: Piperacillin/Tazobactam 3.375 GM in Sodium Chloride 0.9% 100 ML IV SCH ×5 (00:06→23:56)
[2020-10-18] MEDS: Pantoprazole 40 MG Tab.CR PO SCH (05:45)
[2020-10-18] MEDS: Budesonide 0.5 MG/2 ML Neb Susp INH SCH ×2 (07:50→18:49)
--- NOTE | 2020-10-18 08:00 | PCM.PN ---
- General Info Date of Service: 10/18/20 Subjective Update: The patient states that he is exhibiting less pain and swelling of his left lower extremity. Overnight he denies fever, rigors, nausea, vomiting, cough, wheeze, abdominal pain, chest pain, dyspnea, or any other constitutional complaints. I explained to the patient his current medical condition and plan of care and I have answered all of his questions - Review of Systems General: Reports: No Symptoms HEENT: Reports: No Symptoms Pulmonary: Reports: No Symptoms Cardiovascular: Reports: No Symptoms Gastrointestinal: Reports: No Symptoms Genitourinary: Reports: No Symptoms Musculoskeletal: Reports: Leg Pain Skin: Reports: No Symptoms, Rash Neurological: Reports: No Symptoms Psychiatric: Reports: No Symptoms - Patient Data Vitals - Most Recent: Last Vital Signs Temp 97.9 F 10/18/20 04:00 Pulse 85 10/18/20 04:00 Resp 22 H 10/18/20 04:00 BP 131/81 10/18/20 04:00 Pulse Ox 97 10/18/20 04:00 Weight - Most Recent: 237 lb 3.2 oz I&O - Last 24 Hours: Intake & Output 10/17/20 10/18/20 10/18/20 22:59 06:59 14:59 Intake Total 1550 250 Balance 1550 250 Lab Results Last 24 Hours: Laboratory Results - last 24 hr 10/18/20 10/18/20 10/18/20 Range/Units 06:00 06:00 06:00 WBC 20.7 H (5.0-10.0) 10^3/uL RBC 5.74 (4.6-6.2) 10^6/uL Hgb 14.0 (14.0-18.0) g/dL Hct 48.3 (40.0-54.0) % MCV 84.1 (80-100) fL MCH 24.4 L (27.0-34.0) pg MCHC 29.0 L (33.0-35.0) g/dL Plt Count 323 (150-450) 10^3/uL Neut % (Auto) 89.7 H (42.2-75.2) % Lymph % (Auto) 4.2 L (20.5-50.1) % [place] % (Auto) 4.8 (2-8) % Eos % (Auto) 1.0 (1.0-3.0) % Baso % (Auto) 0.3 (0.0-1.0) % Add Manual Diff PT 11.8 (9.0-12.0) SEC INR 1.2 (0.9-1.2) Sodium 149 H (136-145) mmol/L Potassium 4.0 (3.5-5.1) mmol/L Chloride 108 H (98-107) mmol/L Carbon Dioxide 37 H (21-32) mmol/L Anion Gap 8.0 (7-13) mEq/L BUN 16 (7-18) mg/dL Creatinine 1.33 H (0.70-1.30) mg/dL Est Cr Clr Drug Dosing 47.26 mL/min Estimated GFR (MDRD) 52 Glucose 138 H (70-99) mg/dL Calcium 7.9 L (8.5-10.1) mg/dL Good Results Last 24 Hours: Microbiology 10/16/20 10:59 Aerobic Blood Culture - Preliminary Blood - Arm, Left NO GROWTH AFTER 1 DAY Anaerobic Blood Culture - Final 10/16/20 10:52 Aerobic Blood Culture - Preliminary Blood - Arm, Right NO GROWTH AFTER 1 DAY Anaerobic Blood Culture - Preliminary NO GROWTH AFTER 1 DAY Med Orders - Current: Current Medications Acetaminophen (Acetaminophen 325 Mg Tab) 650 mg PO Q4H PRN PRN Reason: Pain (Mild 1-3)/fever Hydrocodone Bitart/Acetaminophen (Acetaminophen/Hydrocodone 325-5 Mg Tab) 1 tab PO Q4H PRN PRN Reason: Pain (severe 7-10) Last Admin: 10/17/20 17:52 Dose: 1 tab Documented by: Albuterol/Ipratropium (Albuterol/Ipratropium 3.0-0.5 Mg/3 Ml Neb Soln) 3 ml INH Q4H PRN PRN Reason: Shortness of Breath Last Admin: 10/17/20 14:09 Dose: 3 ml Documented by: Apixaban (Apixaban 5 Mg Tab) 5 mg PO BID MICHAEL Last Admin: 10/17/20 21:48 Dose: 5 mg Documented by: Budesonide (Budesonide 0.5 Mg/2 Ml Neb Susp) 0.5 mg INH BIDRT MICHAEL Last Admin: 10/18/20 07:50 Dose: 0.5 mg Documented by: Clopidogrel Bisulfate (Clopidogrel 75 Mg Tab) 75 mg PO DAILY [facility] Last Admin: 10/17/20 09:36 Dose: 75 mg Documented by: Digoxin (Digoxin 125 Mcg Tab) 125 mcg PO DAILY@0800 [facility] Last Admin: 10/17/20 09:37 Dose: 125 mcg Documented by: Diltiazem HCl (Diltiazem 240 Mg Cap.Er) 240 mg PO DAILY [facility] Last Admin: 10/17/20 09:41 Dose: 240 mg Documented by: Hydroxyurea (Hydroxyurea 500 Mg Cap) 500 mg PO MoWeFr@0800 [facility] Last Admin: 10/17/20 09:38 Dose: 500 mg Documented by: Piperacillin Sod/Tazobactam (Sod 3.375 gm/ Sodium Chloride) 100 mls @ 200 mls/hr IV Q6HR [facility] Last Admin: 10/18/20 05:41 Dose: 200 mls/hr Documented by: Vancomycin HCl 1.25 gm/ Sodium (Chloride) 250 mls @ 166.667 mls/hr IV Q24H [facility] Last Admin: 10/17/20 15:17 Dose: 166.667 mls/hr Documented by: Loratadine (Loratadine 10 Mg Tab) 10 mg PO DAILY [facility] Last Admin: 10/17/20 09:38 Dose: 10 mg Documented by: Metoprolol Tartrate (Metoprolol Tartrate 50 Mg Tab) 100 mg PO BID [facility] Last Admin: 10/17/20 21:48 Dose: 100 mg Documented by: Arformoterol [ Brovana] 15 Mcg/2 Ml Neb Own Med 0 mcg INH BIDRT [facility] Last Admin: 10/17/20 18:09 Dose: 15 mcg Documented by: Ondansetron HCl (Ondansetron 4 Mg/2 Ml Sdv) 4 mg IVPUSH Q4H PRN PRN Reason: Nausea/Vomiting Pantoprazole Sodium (Pantoprazole 40 Mg Tab.Cr) 40 mg PO ACBREAKFAST [facility] Last Admin: 10/18/20 05:45 Dose: 40 mg Documented by: Ketotifen 0.025% (Ophth Soln *Own Med*) 0 each EYEBOTH BID PRN PRN Reason: allergies Last Admin: 10/17/20 14:00 Dose: 1 each Documented by: Nicotine 2 Mg (Lozenge *Own Med*) 0 each BUCCAL Q2H PRN PRN Reason: Smoking cessation Last Admin: 10/17/20 14:00 Dose: 1 each Documented by: Prednisone (Prednisone 10 Mg Tab) 10 mg PO DAILY [facility] Last Admin: 10/17/20 09:38 Dose: 10 mg Documented by: Rosuvastatin Calcium (Rosuvastatin 10 Mg Tab) 5 mg PO BEDTIME [facility] Last Admin: 10/17/20 21:48 Dose: 5 mg Documented by: Senna/Docusate Sodium (Docusate Sodium/Sennosides 50-8.6 Mg Tab) 2 tab PO BID PRN PRN Reason: Constipation Sodium Chloride (Sodium Chloride 0.9% 10 Ml Syringe) 10 ml FLUSH ASDIRECTED PRN PRN Reason: Keep Vein Open Last Admin: 10/17/20 12:43 Dose: 10 ml Documented by: Tiotropium [place] (Tiotropium Inhaler 18 Mcg Inhalation Powder Cap Kit Of 5) 18 mcg INH DAILY [facility] Last Admin: 10/17/20 09:45 Dose: 18 mg Documented by: Vancomycin HCl (Pharmacy To Dose - Vancomycin) 0 dose .XX ASDIRECTED [facility] Discontinued Medications Hydrocodone Bitart/Acetaminophen (Acetaminophen/Hydrocodone 325-5 Mg Tab) 1 tab PO .STK-MED ONE Stop: 10/17/20 04:41 Albuterol/Ipratropium (Albuterol/Ipratropium 3.0-0.5 Mg/3 Ml Neb Soln) 3 ml INH .STK-MED ONE Stop: 10/17/20 04:41 Cefazolin Sodium/Dextrose (Ancef 2 Gm/50 Ml) 50 mls @ 100 mls/hr IV ONETIME ONE Stop: 10/16/20 12:25 Last Admin: 10/16/20 12:09 Dose: 100 mls/hr Documented by: Sodium Chloride (Normal Saline) 1,000 mls @ 75 mls/hr IV ASDIRECTED [facility] Last Admin: 10/16/20 13:29 Dose: 75 mls/hr Documented by: Arformoterol [ Brovana] 15 Mcg/2 Ml Neb Own Med 0 mcg INH BID [facility] Last Admin: 10/17/20 09:46 Dose: Not Given Documented by: Non-Formulary Medication (Cetirizine Hcl [Zyrtec]) 10 mg PO DAILY PRN PRN Reason: Allergies Non-Formulary Medication (Nicotine Polacrilex [Nicotine Lozenge]) 2 mg BC Q2H PRN PRN Reason: Other Pantoprazole Sodium (Pantoprazole 40 Mg Tab.Cr) 40 mg PO .STK-MED ONE Stop: 10/17/20 06:01 Piperacillin Sod/Tazobactam Sod (Piperacillin/Tazobactam 3.375 Gm Vial) 3.375 gm IV .STK-MED ONE Stop: 10/17/20 06:16 Sodium Chloride (Sodium Chloride 0.9% 100 Ml Advbag) 100 ml IV .STK-MED ONE Stop: 10/17/20 06:16 - Exam General: Alert, Oriented HEENT: Pupils Equal, Pupils Reactive, EOMI, Mucous Membr. Moist/[place] Neck: Supple Lungs: Clear to Auscultation, Normal Respiratory Effort Cardiovascular: Regular Rate, Regular Rhythm GI/Abdominal Exam: Normal Bowel Sounds, Soft, Non-Tender, No Organomegaly, No Distention, No Abnormal Bruit, No Mass, Pelvis Stable Extremities: Leg Pain, Increased Warmth, Redness Skin: Warm, Dry, Intact Wound/Incisions: Healing Well Neurological: No New Focal Deficit Psy/Mental Status: Alert, Normal Affect, Normal Mood - Patient Data Lab Results Last 24 hrs: Laboratory Results - last 24 hr 10/18/20 10/18/20 10/18/20 Range/Units 06:00 06:00 06:00 WBC 20.7 H (5.0-10.0) 10^3/uL RBC 5.74 (4.6-6.2) 10^6/uL Hgb 14.0 (14.0-18.0) g/dL Hct 48.3 (40.0-54.0) % MCV 84.1 (80-100) fL MCH 24.4 L (27.0-34.0) pg MCHC 29.0 L (33.0-35.0) g/dL Plt Count 323 (150-450) 10^3/uL Neut % (Auto) 89.7 H (42.2-75.2) % Lymph % (Auto) 4.2 L (20.5-50.1) % [place]kean % (Auto) 4.8 (2-8) % Eos % (Auto) 1.0 (1.0-3.0) % Baso % (Auto) 0.3 (0.0-1.0) % Add Manual Diff PT 11.8 (9.0-12.0) SEC INR 1.2 (0.9-1.2) Sodium 149 H (136-145) mmol/L Potassium 4.0 (3.5-5.1) mmol/L Chloride 108 H (98-107) mmol/L Carbon Dioxide 37 H (21-32) mmol/L Anion Gap 8.0 (7-13) mEq/L BUN 16 (7-18) mg/dL Creatinine 1.33 H (0.70-1.30) mg/dL Est Cr Clr Drug Dosing 47.26 mL/min Estimated GFR (MDRD) 52 Glucose 138 H (70-99) mg/dL Calcium 7.9 L (8.5-10.1) mg/dL Result Diagrams: 10/18/20 06:00 10/18/20 06:00 Good Results Last 24 hrs: Microbiology 10/16/20 10:59 Aerobic Blood Culture - Preliminary Blood - Arm, Left NO GROWTH AFTER 1 DAY Anaerobic Blood Culture - Final 10/16/20 10:52 Aerobic Blood Culture - Preliminary Blood - Arm, Right NO GROWTH AFTER 1 DAY Anaerobic Blood Culture - Preliminary NO GROWTH AFTER 1 DAY Sepsis Event Note - Evaluation Sepsis Screening Result: No Definite Risk - Focused Exam Vital Signs: Vital Signs Temp Pulse Pulse Resp BP BP Pulse Ox 10/18/20 04:00 97.9 F 85 22 H 131/81 97 10/18/20 00:00 97.4 F 87 20 104/72 94 L 10/17/20 21:48 99 112/62 10/17/20 20:00 98.0 F 104 H 20 112/69 94 L - Problem List Review Problem List Initiated/Reviewed/Updated: Yes - My Orders Last 24 Hours: My Active Orders 10/17/20 07:43 Communication Order [RC] 08,10/17/20 08:00 Digoxin [Lanoxin] 125 mcg PO DAILY@0800 Hydroxyurea [Hydrea] 500 mg PO MoWeFr@0800 10/17/20 09:00 Clopidogrel [Plavix] 75 mg PO DAILY Diltiazem [Dilacor XR] 240 mg PO DAILY Loratadine [Claritin] 10 mg PO DAILY Tiotropium [Spiriva HandiHaler] 18 mcg INH DAILY predniSONE 10 mg PO DAILY 10/17/20 13:08 Patient's Own Medication [Ptom] See Dose Instructions BUCCAL Q2H PRN 10/17/20 13:56 Patient's Own Medication [Ptom] 0 each EYEBOTH BID PRN 10/17/20 18:00 Arformoterol [Brovana] 0 mcg INH BIDRT 10/18/20 07:57 Communication Order [RC] 08,20 10/19/20 05:00 BASIC METABOLIC PANEL,BMP [CHEM] Routine 10/19/20 14:30 VANCOMYCIN TROUGH [CHEM] Timed - Plan Plan:: Left lower extremity cellulitis. We will demarcate and date the margin of erythema daily to ensure resection. IV vancomycin to be dosed by pharmacy plus Zosyn 3.375 g IV every 6 hours History of polycythemia vera with current anemia. Outpatient follow with hematology/oncology upon discharge. Hydroxyurea 500 mg p.o. q. Thursday, Thursday, and Thursday Hyperbilirubinemia. Will monitor LFTs periodically with CMP Acute renal insufficiency. Will monitor creatinine level intermittently. Hypernatremia. Will monitor sodium levels intermittently Coagulopathy. Will monitor PT/INR periodically Leukocytosis, chronic. Baseline white blood cell count approximately 20. Outpatient follow-up with hematology/oncology upon discharge. Hydroxyurea 500 mg p.o. q. Thursday, Thursday, and Thursday Atrial fibrillation. Eliquis 5 mg p.o. twice daily plus digoxin 100.5 mg p.o. daily plus [place] XR 240 mg p.o. daily plus metoprolol 100 mg p.o. twice daily Seasonal allergies. Claritin 10 mg p.o. daily COPD, O2 dependent 3 L. Brovana 7.5 mcg inhaled twice daily plus Pulmicort 0.5 mg inhaled twice daily plus Spiriva 18 mcg inhaled daily plus prednisone 10 mg p.o. daily Congestive heart failure. Digoxin 125 mcg p.o. daily plus metoprolol 100 mg p.o. twice daily Coronary artery disease, status post ID, status post [place]. Plavix 75 mg p.o. daily plus Crestor 5 mg p.o. nightly plus metoprolol 100 mg p.o. twice daily GERD. Prilosec 20 mg p.o. daily Hyperlipidemia. Crestor 5 mg p.o. nightly Hypertension. Dilacor XR 240 mg p.o. daily plus metoprolol 100 mg p.o. twice daily Obesity. Patient be counseled regarding lifestyle modification Degenerative joint disease Polymyalgia rheumatica Left renal cell carcinoma, status post cryotherapy. Patient Bruna he is in rem ission. Outpatient follow-up with hematology/oncology upon discharge History of vitamin D deficiency Obstructive sleep apnea. CPAP/BiPAP: Okay to use home device and/or pressure when sleeping if the patient uses CPAP/BiPAP at home Degenerative disc disease DVT prophylaxis. Eliquis 5 mg p.o. twice daily Disposition: Anticipate discharge in 24 to 72 hours
[2020-10-18] MEDS: Acetaminophen/HYDROcodone 325-5 MG Tab PO PRN ×3 (08:05→20:14)
[2020-10-18] MEDS: Apixaban 5 MG Tab PO SCH ×2 (08:06→20:14)
[2020-10-18] MEDS: Diltiazem 240 MG Cap.ER PO SCH (08:07)
[2020-10-18] MEDS: Clopidogrel 75 MG Tab PO SCH (08:07)
[2020-10-18] MEDS: Digoxin 125 MCG Tab PO SCH (08:07)
[2020-10-18] MEDS: predniSONE 10 MG Tab PO SCH (08:07)
[2020-10-18] MEDS: Metoprolol Tartrate 50 MG Tab PO SCH ×2 (08:07→20:15)
[2020-10-18] MEDS: Loratadine 10 MG Tab PO SCH (08:07)
[2020-10-18] MEDS: ARFORMOTEROL 15 MCG/2 ML INH SCH ×2 (08:09→18:50)
[2020-10-18] MEDS: Tiotropium Inhaler 18 MCG Inhalation Powder Cap Kit of 5 INH SCH (08:11)
[2020-10-18] MEDS: Albuterol/Ipratropium 3.0-0.5 MG/3 ML Neb Soln INH PRN (14:42)
[2020-10-18] MEDS: Rosuvastatin 10 MG Tab PO SCH (20:14)
[2020-10-19] MEDS: Albuterol/Ipratropium 3.0-0.5 MG/3 ML Neb Soln INH PRN ×2 (02:22→13:29)
[2020-10-19] MEDS: Acetaminophen/HYDROcodone 325-5 MG Tab PO PRN ×4 (02:24→21:16)
[2020-10-19] MEDS: Piperacillin/Tazobactam 3.375 GM in Sodium Chloride 0.9% 100 ML IV SCH ×3 (05:15→18:05)
[2020-10-19] MEDS: Pantoprazole 40 MG Tab.CR PO SCH (05:15)
[2020-10-19] MEDS: Budesonide 0.5 MG/2 ML Neb Susp INH SCH ×2 (06:51→17:57)
[2020-10-19] MEDS: ARFORMOTEROL 15 MCG/2 ML INH SCH ×2 (06:51→17:56)
[2020-10-19 07:02] LABS: ANION GAP 11.2 mEq/L (7-13)
--- NOTE | 2020-10-19 07:44 | PCM.PN ---
- General Info Date of Service: 10/19/20 Subjective Update: The patient complains of mild left lower extremity pain however he states overall, the pain, swelling, and redness have improved. Overnight the patient denies fever, rigors, nausea, vomiting, cough, wheeze, abdominal pain, chest pain, dyspnea, or any other constant complaints. I explained to the patient his current medical condition and plan of care and I have answered all of his questions - Review of Systems General: Reports: No Symptoms HEENT: Reports: No Symptoms Pulmonary: Reports: No Symptoms Cardiovascular: Reports: No Symptoms Gastrointestinal: Reports: No Symptoms Genitourinary: Reports: No Symptoms Musculoskeletal: Reports: Leg Pain Skin: Reports: No Symptoms Neurological: Reports: No Symptoms Psychiatric: Reports: No Symptoms - Patient Data Vitals - Most Recent: Last Vital Signs Temp 98.4 F 10/19/20 03:38 Pulse 66 10/19/20 03:38 Resp 20 10/19/20 03:38 BP 144/98 H 10/19/20 03:38 Pulse Ox 99 10/19/20 03:38 Weight - Most Recent: 237 lb 3.2 oz I&O - Last 24 Hours: Intake & Output 10/18/20 10/19/20 10/19/20 22:59 06:59 14:59 Intake Total 490 120 Balance 490 120 Lab Results Last 24 Hours: Laboratory Results - last 24 hr 10/19/20 Range/Units 06:30 Sodium 146 H (136-145) mmol/L Potassium 4.2 (3.5-5.1) mmol/L Chloride 107 (98-107) mmol/L Carbon Dioxide 32 (21-32) mmol/L Anion Gap 11.2 (7-13) mEq/L BUN 14 (7-18) mg/dL Creatinine 1.29 (0.70-1.30) mg/dL Est Cr Clr Drug Dosing 48.73 mL/min Estimated GFR (MDRD) 54 Glucose 150 H (70-99) mg/dL Calcium 7.6 L (8.5-10.1) mg/dL Good Results Last 24 Hours: Microbiology 10/16/20 10:59 Aerobic Blood Culture - Preliminary Blood - Arm, Left NO GROWTH AFTER 2 DAYS Anaerobic Blood Culture - Final 10/16/20 10:52 Aerobic Blood Culture - Preliminary Blood - Arm, Right NO GROWTH AFTER 2 DAYS Anaerobic Blood Culture - Preliminary NO GROWTH AFTER 2 DAYS Med Orders - Current: Current Medications Acetaminophen (Acetaminophen 325 Mg Tab) 650 mg PO Q4H PRN PRN Reason: Pain (Mild 1-3)/fever Last Admin: 10/19/20 03:22 Dose: 650 mg Documented by: Hydrocodone Bitart/Acetaminophen (Acetaminophen/Hydrocodone 325-5 Mg Tab) 1 tab PO Q4H PRN PRN Reason: Pain (severe 7-10) Last Admin: 10/19/20 02:24 Dose: 1 tab Documented by: Albuterol/Ipratropium (Albuterol/Ipratropium 3.0-0.5 Mg/3 Ml Neb Soln) 3 ml INH Q4H PRN PRN Reason: Shortness of Breath Last Admin: 10/19/20 02:22 Dose: 3 ml Documented by: Apixaban (Apixaban 5 Mg Tab) 5 mg PO BID [facility] Last Admin: 10/18/20 20:14 Dose: 5 mg Documented by: Budesonide (Budesonide 0.5 Mg/2 Ml Neb Susp) 0.5 mg INH BIDRT [facility] Last Admin: 10/19/20 06:51 Dose: 0.5 mg Documented by: Clopidogrel Bisulfate (Clopidogrel 75 Mg Tab) 75 mg PO DAILY [facility] Last Admin: 10/18/20 08:07 Dose: 75 mg Documented by: Digoxin (Digoxin 125 Mcg Tab) 125 mcg PO DAILY@0800 [facility] Last Admin: 10/18/20 08:07 Dose: 125 mcg Documented by: Diltiazem HCl (Diltiazem 240 Mg Cap.Er) 240 mg PO DAILY [facility] Last Admin: 10/18/20 08:07 Dose: 240 mg Documented by: Hydroxyurea (Hydroxyurea 500 Mg Cap) 500 mg PO MoWeFr@0800 [facility] Last Admin: 10/17/20 09:38 Dose: 500 mg Documented by: Piperacillin Sod/Tazobactam (Sod 3.375 gm/ Sodium Chloride) 100 mls @ 200 mls/hr IV Q6HR [facility] Last Admin: 10/19/20 05:15 Dose: 200 mls/hr Documented by: Vancomycin HCl 1.25 gm/ Sodium (Chloride) 250 mls @ 166.667 mls/hr IV Q24H [facility] Last Infusion: 10/18/20 16:17 Dose: Infused Documented by: Loratadine (Loratadine 10 Mg Tab) 10 mg PO DAILY [facility] Last Admin: 10/18/20 08:07 Dose: 10 mg Documented by: Metoprolol Tartrate (Metoprolol Tartrate 50 Mg Tab) 100 mg PO BID [facility] Last Admin: 10/18/20 20:15 Dose: 100 mg Documented by: Arformoterol [ Brovana] 15 Mcg/2 Ml Neb Own Med 0 mcg INH BIDRT [facility] Last Admin: 10/19/20 06:51 Dose: 15 mcg Documented by: Ondansetron HCl (Ondansetron 4 Mg/2 Ml Sdv) 4 mg IVPUSH Q4H PRN PRN Reason: Nausea/Vomiting Pantoprazole Sodium (Pantoprazole 40 Mg Tab.Cr) 40 mg PO ACBREAKFAST [facility] Last Admin: 10/19/20 05:15 Dose: 40 mg Documented by: Ketotifen 0.025% (Ophth Soln *Own Med*) 0 each EYEBOTH BID PRN PRN Reason: allergies Last Admin: 10/17/20 14:00 Dose: 1 each Documented by: Nicotine 2 Mg (Lozenge *Own Med*) 0 each BUCCAL Q2H PRN PRN Reason: Smoking cessation Last Admin: 10/17/20 14:00 Dose: 1 each Documented by: Prednisone (Prednisone 10 Mg Tab) 10 mg PO DAILY [facility] Last Admin: 10/18/20 08:07 Dose: 10 mg Documented by: Rosuvastatin Calcium (Rosuvastatin 10 Mg Tab) 5 mg PO BEDTIME [facility] Last Admin: 10/18/20 20:14 Dose: 5 mg Documented by: Senna/Docusate Sodium (Docusate Sodium/Sennosides 50-8.6 Mg Tab) 2 tab PO BID PRN PRN Reason: Constipation Sodium Chloride (Sodium Chloride 0.9% 10 Ml Syringe) 10 ml FLUSH ASDIRECTED PRN PRN Reason: Keep Vein Open Last Admin: 10/17/20 12:43 Dose: 10 ml Documented by: Tiotropium [place] (Tiotropium Inhaler 18 Mcg Inhalation Powder Cap Kit Of 5) 18 mcg INH DAILY [facility] Last Admin: 10/18/20 08:11 Dose: 18 mcg Documented by: Vancomycin HCl (Pharmacy To Dose - Vancomycin) 0 dose .XX ASDIRECTED [facility] Discontinued Medications Hydrocodone Bitart/Acetaminophen (Acetaminophen/Hydrocodone 325-5 Mg Tab) 1 tab PO .STK-MED ONE Stop: 10/17/20 04:41 Albuterol/Ipratropium (Albuterol/Ipratropium 3.0-0.5 Mg/3 Ml Neb Soln) 3 ml INH .STK-MED ONE Stop: 10/17/20 04:41 Cefazolin Sodium/Dextrose (Ancef 2 Gm/50 Ml) 50 mls @ 100 mls/hr IV ONETIME ONE Stop: 10/16/20 12:25 Last Admin: 10/16/20 12:09 Dose: 100 mls/hr Documented by: Sodium Chloride (Normal Saline) 1,000 mls @ 75 mls/hr IV ASDIRECTED [facility] Last Admin: 10/16/20 13:29 Dose: 75 mls/hr Documented by: Arformoterol [ Brovana] 15 Mcg/2 Ml Neb Own Med 0 mcg INH BID [facility] Last Admin: 10/17/20 09:46 Dose: Not Given Documented by: Non-Formulary Medication (Cetirizine Hcl [Zyrtec]) 10 mg PO DAILY PRN PRN Reason: Allergies Non-Formulary Medication (Nicotine Polacrilex [Nicotine Lozenge]) 2 mg BC Q2H PRN PRN Reason: Other Pantoprazole Sodium (Pantoprazole 40 Mg Tab.Cr) 40 mg PO .STK-MED ONE Stop: 10/17/20 06:01 Piperacillin Sod/Tazobactam Sod (Piperacillin/Tazobactam 3.375 Gm Vial) 3.375 gm IV .STK-MED ONE Stop: 10/17/20 06:16 Sodium Chloride (Sodium Chloride 0.9% 100 Ml Advbag) 100 ml IV .STK-MED ONE Stop: 10/17/20 06:16 - Exam General: Alert, Oriented HEENT: Pupils Equal, Pupils Reactive, EOMI, Mucous Membr. Moist/[place] Neck: Supple Lungs: Clear to Auscultation, Normal Respiratory Effort Cardiovascular: Regular Rate, Regular Rhythm GI/Abdominal Exam: Normal Bowel Sounds, Soft, Non-Tender, No Organomegaly, No Distention, No Abnormal Bruit, No Mass, Pelvis Stable Back Exam: Normal Inspection, Full Range of Motion Extremities: Leg Pain, Redness Skin: Warm, Dry, Intact Wound/Incisions: Healing Well Neurological: No New Focal Deficit Psy/Mental Status: Alert, Normal Affect, Normal Mood - Patient Data Lab Results Last 24 hrs: Laboratory Results - last 24 hr 10/19/20 Range/Units 06:30 Sodium 146 H (136-145) mmol/L Potassium 4.2 (3.5-5.1) mmol/L Chloride 107 (98-107) mmol/L Carbon Dioxide 32 (21-32) mmol/L Anion Gap 11.2 (7-13) mEq/L BUN 14 (7-18) mg/dL Creatinine 1.29 (0.70-1.30) mg/dL Est Cr Clr Drug Dosing 48.73 mL/min Estimated GFR (MDRD) 54 Glucose 150 H (70-99) mg/dL Calcium 7.6 L (8.5-10.1) mg/dL Result Diagrams: 10/18/20 06:00 10/19/20 06:30 Good Results Last 24 hrs: Microbiology 10/16/20 10:59 Aerobic Blood Culture - Preliminary Blood - Arm, Left NO GROWTH AFTER 2 DAYS Anaerobic Blood Culture - Final 10/16/20 10:52 Aerobic Blood Culture - Preliminary Blood - Arm, Right NO GROWTH AFTER 2 DAYS Anaerobic Blood Culture - Preliminary NO GROWTH AFTER 2 DAYS Sepsis Event Note - Evaluation Sepsis Screening Result: No Definite Risk - Focused Exam Vital Signs: Vital Signs Temp Pulse Pulse Resp BP BP Pulse Ox 10/19/20 03:38 98.4 F 66 20 144/98 H 99 10/19/20 02:25 67 10/19/20 00:00 98.5 F 69 20 108/82 96 10/18/20 20:15 87 111/67 - Problem List Review Problem List Initiated/Reviewed/Updated: Yes - My Orders Last 24 Hours: My Active Orders 10/18/20 07:57 Communication Order [RC] ,10/18/20 10:50 Communication Order [RC] ,10/19/20 07:42 Communication Order [RC] ,10/19/20 14:30 VANCOMYCIN TROUGH [CHEM] Timed - Plan Plan:: Left lower extremity cellulitis. We will demarcate and date the margin of erythema daily to ensure resection. IV vancomycin to be dosed by pharmacy plus Zosyn 3.375 g IV every 6 hours History of polycythemia vera with current anemia. Outpatient follow with hematology/oncology upon discharge. Hydroxyurea 500 mg p.o. q. Thursday, Thursday, and Thursday Hyperbilirubinemia. Will monitor LFTs periodically with CMP Acute renal insufficiency. Will monitor creatinine level intermittently. Hypernatremia. Will monitor sodium levels intermittently Coagulopathy. Will monitor PT/INR periodically Leukocytosis, chronic. Baseline white blood cell count approximately 20. Outpatient follow-up with hematology/oncology upon discharge. Hydroxyurea 500 mg p.o. q. Thursday, Thursday, and Thursday Atrial fibrillation. Eliquis 5 mg p.o. twice daily plus digoxin 100.5 mg p.o. daily plus [place]ac[place] XR 240 mg p.o. daily plus metoprolol 100 mg p.o. twice daily Seasonal allergies. Claritin 10 mg p.o. daily COPD, O2 dependent 3 L. Brovana 7.5 mcg inhaled twice daily plus Pulmicort 0.5 mg inhaled twice daily plus Spiriva 18 mcg inhaled daily plus prednisone 10 mg p.o. daily Congestive heart failure. Digoxin 125 mcg p.o. daily plus metoprolol 100 mg p.o. twice daily Coronary artery disease, status post [place], status post [place]. Plavix 75 mg p.o. daily plus Crestor 5 mg p.o. nightly plus metoprolol 100 mg p.o. twice daily GERD. Prilosec 20 mg p.o. daily Hyperlipidemia. Crestor 5 mg p.o. nightly Hypertension. Dilacor XR 240 mg p.o. daily plus metoprolol 100 mg p.o. twice daily Obesity. Patient be counseled regarding lifestyle modification Degenerative joint disease Polymyalgia rheumatica Left renal cell carcinoma, status post cryotherapy. Patient Bruna he is in remission. Outpatient follow-up with hematology/oncology upon discharge History of vitamin D deficiency Obstructive sleep apnea. CPAP/BiPAP: Okay to use home device and/or pressure when sleeping if the patient uses CPAP/BiPAP at home Degenerative disc disease DVT prophylaxis. Eliquis 5 mg p.o. twice daily Disposition: Anticipate discharge in 24 hours
[2020-10-19] MEDS: Metoprolol Tartrate 50 MG Tab PO SCH ×2 (09:01→21:16)
[2020-10-19] MEDS: Clopidogrel 75 MG Tab PO SCH (09:01)
[2020-10-19] MEDS: Diltiazem 240 MG Cap.ER PO SCH (09:01)
[2020-10-19] MEDS: predniSONE 10 MG Tab PO SCH (09:01)
[2020-10-19] MEDS: Hydroxyurea 500 MG Cap PO SCH (09:01)
[2020-10-19] MEDS: Apixaban 5 MG Tab PO SCH ×2 (09:01→21:16)
[2020-10-19] MEDS: Digoxin 125 MCG Tab PO SCH (09:01)
[2020-10-19] MEDS: Loratadine 10 MG Tab PO SCH (09:01)
[2020-10-19] MEDS: Tiotropium Inhaler 18 MCG Inhalation Powder Cap Kit of 5 INH SCH (09:04)
[2020-10-19] MEDS: Rosuvastatin 10 MG Tab PO SCH (21:15)
[2020-10-19] MEDS: NICOTINE 2 MG BUCCAL PRN (21:19)
[2020-10-20] MEDS: Sodium Chloride 0.9% 10 ML Syringe FLUSH PRN ×2 (00:26→01:28)
[2020-10-20] MEDS: Piperacillin/Tazobactam 3.375 GM in Sodium Chloride 0.9% 100 ML IV SCH ×2 (00:27→05:50)
[2020-10-20] MEDS: Acetaminophen/HYDROcodone 325-5 MG Tab PO PRN (01:28)
[2020-10-20] MEDS: Albuterol/Ipratropium 3.0-0.5 MG/3 ML Neb Soln INH PRN (04:40)
[2020-10-20] MEDS: Pantoprazole 40 MG Tab.CR PO SCH (05:54)
--- NOTE | 2020-10-20 07:54 | PCM.DCSUM1 ---
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 Congestive heart failure Coronary artery disease, status post ID, status post and GERD Hyperlipidemia Hypertension Obesity Degenerative disease Polymyalgia rheumatica Left renal cell carcinoma, status post cryotherapy History of vitamin D deficiency Obstructive sleep apnea Degenerative disease Consultations: None Condition on Discharge: Fair Disposition: The patient will be advised to follow-up with his primary care physician or provider 5 to 7 days post discharge for posthospitalization evaluation The patient is advised follow-up with hematology/oncology as directed for his history of polycythemia vera, chronic leukocytosis, left renal cell carcinoma for which she is status post cryotherapy Discharge Medications: Triamcinolone acetonide apply topically to affected area twice daily as needed unspecified reason Nitroglycerin 0.4 mg ultimately every 5 minutes as needed chest pain. He is: 1 monitor is no resolution of chest pain after the third dose Nicotine lozenge 2 mg p.o. every 2 hours as needed nicotine withdrawal Magnesium oxide 420 mg p.o. daily Vitamin D 800 IU p.o. daily Zyrtec 10 mg p.o. daily as needed symptoms of seasonal allergies Bumex 1 mg p.o. daily Proventil HFA: 90 nico as per spray: 2 puffs every 6 hours as needed shortness of breath/wheeze Spiriva 18 mcg inhaled daily Crestor 5 mg p.o. nightly Prednisone 10 mg p.o. daily Prilosec 20 mg p.o. daily Metoprolol 100 mg p.o. twice daily Ketotifen 0.025%: 1 drop in both eyes twice daily DuoNeb every 4 hours as needed shortness of breath/wheeze Hydroxyurea 500 mg p.o. q. Thursday, Thursday, Thursday Docusate/senna: 2 tabs p.o. twice daily [place] XR 240 mg p.o. daily Digoxin 125 mcg p.o. daily Plavix and 5 mg p.o. daily Pulmicort 0.5 mg inhaled twice daily Brovana 15 mcg inhaled twice daily Eliquis 5 mg p.o. twice daily Bactrim DS 1 tab p.o. twice daily. Quantity 14. 0 refills END OF DOCTOR EMAMIS DISCHARGE SUMMARY - Discharge Data Discharge Date: 10/20/20 Discharge Disposition: Home, Self-Care 01 Condition: Fair - Referral to Home Health Primary Care Physician: PCP None - Patient Instructions Diet: Heart Healthy Diet, Low Sodium, Fluid Restriction Activity: As Tolerated - Discharge Plan *PRESCRIPTION DRUG MONITORING PROGRAM REVIEWED*: No *COPY OF PRESCRIPTION DRUG MONITORING REPORT IN PATIENT ANNELISE: No Prescriptions/Med Rec: Sulfamethoxazole/Trimethoprim [Bactrim Ds Tablet] 1 each PO BID 7 Days #14 tablet Home Medications: Home Meds Albuterol Sulfate [Albuterol Sulfate Hfa] 2 puff INH Q6H PRN 03/10/20 [History] Arformoterol [Brovana] 15 mcg NEB BID 03/10/20 [History] Budesonide [Pulmicort] 0.5 mg IH BID 03/10/20 [History] Bumetanide [Bumex] 1 mg PO DAILY 03/10/20 [History] Cetirizine HCl [Zyrtec] 10 mg PO DAILY PRN 03/10/20 [History] Cholecalciferol (Vitamin D3) [Vitamin D3] 800 unit PO DAILY 03/10/20 [History] Clopidogrel [Plavix] 75 mg PO DAILY 03/10/20 [History] Ipratropium/Albuterol Sulfate [Iprat-Albut 0.5-3(2.5) mg/3 ml] 3 ml IH Q4H PRN 03/10/20 [History] Ketotifen [Ketotifen 0.025% Ophth Soln] 1 drop EYEBOTH BID 03/10/20 [History] Lactobacillus 3/Fos/Pantethine [Probiotic & Acidophilus] 1 cap PO DAILY 03/10/20 [History] Magnesium Oxide 420 mg PO DAILY 03/10/20 [History] Metoprolol Tartrate 100 mg PO BID 03/10/20 [History] Nicotine Polacrilex [Nicotine Lozenge] 2 mg BC Q2H PRN 03/10/20 [History] Nitroglycerin [Nitrostat] 0.4 mg SL ASDIRECTED PRN 03/10/20 [History] Omeprazole 20 mg PO ACBREAKFAST 03/10/20 [History] Polyvinyl Alcohol [Artificial Tears] 1 drop OP Q4H PRN 03/10/20 [History] Rosuvastatin [Crestor] 5 mg PO BEDTIME 03/10/20 [History] Tiotropium [Spiriva HandiHaler] 18 mcg INH DAILY 03/10/20 [History] Apixaban [Eliquis] 5 mg PO BID 10/16/20 [History] Digoxin 125 mcg PO DAILY 10/16/20 [History] Diltiazem [Dilacor XR] 240 mg PO DAILY 10/16/20 [History] Docusate Sodium/Sennosides [Senna Plus] 2 each PO BID PRN 10/16/20 [History] Hydroxyurea 500 mg PO MOWEFR 10/16/20 [History] Triamcinolone Acetonide [Triamcinolone Acetonide 0.1% Crm] 1 applic TOP BID PRN 10/16/20 [History] predniSONE [Prednisone] 10 mg PO DAILY 10/16/20 [History] Sulfamethoxazole/Trimethoprim [Bactrim Ds Tablet] 1 each PO BID 7 Days #14 tablet 10/20/20 [Rx] Forms: ED Department Discharge Referrals: Molly Ferguson NP [Ordering Only Provider] - - Discharge Summary/Plan Comment DC Time >30 min.: No - Review of Systems General: Reports: No Symptoms HEENT: Reports: No Symptoms Pulmonary: Reports: No Symptoms Cardiovascular: Reports: No Symptoms Gastrointestinal: Reports: No Symptoms Genitourinary: Reports: No Symptoms Musculoskeletal: Reports: No Symptoms Skin: Reports: No Symptoms Neurological: Reports: No Symptoms Psychiatric: Reports: No Symptoms - Patient Data Vitals - Most Recent: Last Vital Signs Temp 97 F 10/20/20 01:26 Pulse 65 10/20/20 01:26 Resp 20 10/20/20 01:26 BP 111/67 10/20/20 01:26 Pulse Ox 91 L 10/20/20 01:26 Weight - Most Recent: 237 lb 3.2 oz I&O - Last 24 hours: Intake & Output 10/19/20 10/20/20 10/20/20 22:59 06:59 14:59 Intake Total 450 250 Balance 450 250 Lab Results - Last 24 hrs: Laboratory Results - last 24 hr 10/19/20 Range/Units 14:00 Vancomycin Trough 8.1 L (10.0-20.0) ug/mL NICO Results - Last 24 hrs: Microbiology 10/16/20 10:59 Aerobic Blood Culture - Preliminary Blood - Arm, Left NO GROWTH AFTER 3 DAYS Anaerobic Blood Culture - Final 10/16/20 10:52 Aerobic Blood Culture - Preliminary Blood - Arm, Right NO GROWTH AFTER 3 DAYS Anaerobic Blood Culture - Preliminary NO GROWTH AFTER 3 DAYS Med Orders - Current: Current Medications Acetaminophen (Acetaminophen 325 Mg Tab) 650 mg PO Q4H PRN PRN Reason: Pain (Mild 1-3)/fever Last Admin: 10/19/20 03:22 Dose: 650 mg Documented by: Hydrocodone Bitart/Acetaminophen (Acetaminophen/Hydrocodone 325-5 Mg Tab) 1 tab PO Q4H PRN PRN Reason: Pain (severe 7-10) Last Admin: 10/20/20 01:28 Dose: 1 tab Documented by: Albuterol/Ipratropium (Albuterol/Ipratropium 3.0-0.5 Mg/3 Ml Neb Soln) 3 ml INH Q4H PRN PRN Reason: Shortness of Breath Last Admin: 10/20/20 04:40 Dose: 3 ml Documented by: Apixaban (Apixaban 5 Mg Tab) 5 mg PO BID [facility] Last Admin: 10/19/20 21:16 Dose: 5 mg Documented by: Budesonide (Budesonide 0.5 Mg/2 Ml Neb Susp) 0.5 mg INH BIDRT [facility] Last Admin: 10/19/20 17:57 Dose: 0.5 mg Documented by: Clopidogrel Bisulfate (Clopidogrel 75 Mg Tab) 75 mg PO DAILY [facility] Last Admin: 10/19/20 09:01 Dose: 75 mg Documented by: Digoxin (Digoxin 125 Mcg Tab) 125 mcg PO DAILY@0800 [facility] Last Admin: 10/19/20 09:01 Dose: 125 mcg Documented by: Diltiazem HCl (Diltiazem 240 Mg Cap.Er) 240 mg PO DAILY [facility] Last Admin: 10/19/20 09:01 Dose: 240 mg Documented by: Hydroxyurea (Hydroxyurea 500 Mg Cap) 500 mg PO MoWeFr@0800 [facility] Last Admin: 10/19/20 09:01 Dose: 500 mg Documented by: Piperacillin Sod/Tazobactam (Sod 3.375 gm/ Sodium Chloride) 100 mls @ 200 mls/hr IV Q6HR [facility] Last Infusion: 10/20/20 06:30 Dose: Infused Documented by: Vancomycin HCl 1.25 gm/ Sodium (Chloride) 250 mls @ 166.667 mls/hr IV Q24H [facility] Last Admin: 10/19/20 14:49 Dose: 167 mls/hr Documented by: Loratadine (Loratadine 10 Mg Tab) 10 mg PO DAILY [facility] Last Admin: 10/19/20 09:01 Dose: 10 mg Documented by: Metoprolol Tartrate (Metoprolol Tartrate 50 Mg Tab) 100 mg PO BID [facility] Last Admin: 10/19/20 21:16 Dose: 100 mg Documented by: Arformoterol [ Brovana] 15 Mcg/2 Ml Neb Own Med 0 mcg INH BIDRT [facility] Last Admin: 10/19/20 17:56 Dose: 15 mcg Documented by: Ondansetron HCl (Ondansetron 4 Mg/2 Ml Sdv) 4 mg IVPUSH Q4H PRN PRN Reason: Nausea/Vomiting Pantoprazole Sodium (Pantoprazole 40 Mg Tab.Cr) 40 mg PO ACBREAKFAST [facility] Last Admin: 10/20/20 05:54 Dose: 40 mg Documented by: Ketotifen 0.025% (Ophth Soln *Own Med*) 0 each EYEBOTH BID PRN PRN Reason: allergies Last Admin: 10/17/20 14:00 Dose: 1 each Documented by: Nicotine 2 Mg (Lozenge *Own Med*) 0 each BUCCAL Q2H PRN PRN Reason: Smoking cessation Last Admin: 10/19/20 21:19 Dose: 1 each Documented by: Prednisone (Prednisone 10 Mg Tab) 10 mg PO DAILY [facility] Last Admin: 10/19/20 09:01 Dose: 10 mg Documented by: Rosuvastatin Calcium (Rosuvastatin 10 Mg Tab) 5 mg PO BEDTIME [facility] Last Admin: 10/19/20 21:15 Dose: 5 mg Documented by: Senna/Docusate Sodium (Docusate Sodium/Sennosides 50-8.6 Mg Tab) 2 tab PO BID PRN PRN Reason: Constipation Sodium Chloride (Sodium Chloride 0.9% 10 Ml Syringe) 10 ml FLUSH ASDIRECTED PRN PRN Reason: Keep Vein Open Last Admin: 10/20/20 01:28 Dose: 10 ml Documented by: Tiotropium [place] (Tiotropium Inhaler 18 Mcg Inhalation Powder Cap Kit Of 5) 18 mcg INH DAILY [facility] Last Admin: 10/19/20 09:04 Dose: 18 mcg Documented by: Vancomycin HCl (Pharmacy To Dose - Vancomycin) 0 dose .XX ASDIRECTED [facility] Discontinued Medications Hydrocodone Bitart/Acetaminophen (Acetaminophen/Hydrocodone 325-5 Mg Tab) 1 tab PO .STK-MED ONE Stop: 10/17/20 04:41 Albuterol/Ipratropium (Albuterol/Ipratropium 3.0-0.5 Mg/3 Ml Neb Soln) 3 ml INH .STK-MED ONE Stop: 10/17/20 04:41 Cefazolin Sodium/Dextrose (Ancef 2 Gm/50 Ml) 50 mls @ 100 mls/hr IV ONETIME ONE Stop: 10/16/20 12:25 Last Admin: 10/16/20 12:09 Dose: 100 mls/hr Documented by: Sodium Chloride (Normal Saline) 1,000 mls @ 75 mls/hr IV ASDIRECTED [facility] Last Admin: 10/16/20 13:29 Dose: 75 mls/hr Documented by: Arformoterol [ Brovana] 15 Mcg/2 Ml Neb Own Med 0 mcg INH BID [facility] Last Admin: 10/17/20 09:46 Dose: Not Given Documented by: Non-Formulary Medication (Cetirizine Hcl [Zyrtec]) 10 mg PO DAILY PRN PRN Reason: Allergies Non-Formulary Medication (Nicotine Polacrilex [Nicotine Lozenge]) 2 mg BC Q2H PRN PRN Reason: Other Pantoprazole Sodium (Pantoprazole 40 Mg Tab.Cr) 40 mg PO .STK-MED ONE Stop: 10/17/20 06:01 Piperacillin Sod/Tazobactam Sod (Piperacillin/Tazobactam 3.375 Gm Vial) 3.375 gm IV .STK-MED ONE Stop: 10/17/20 06:16 Sodium Chloride (Sodium Chloride 0.9% 100 Ml Advbag) 100 ml IV .STK-MED ONE Stop: 10/17/20 06:16 - Exam General: Reports: Alert, Oriented HEENT: Reports: Pupils Equal, Pupils Reactive, EOMI, Mucous Membr. Moist/[place] Neck: Reports: Supple Lungs: Reports: Clear to Auscultation, Normal Respiratory Effort Cardiovascular: Reports: Regular Rate, Regular Rhythm GI/Abdominal Exam: Normal Bowel Sounds, Soft, Non-Tender, No Organomegaly, No Distention, No Abnormal Bruit, No Mass, Pelvis Stable Extremities: Redness Skin: Reports: Rash Wound/Incisions: Reports: Healing Well Neurological: Reports: No New Focal Deficit Psy/Mental Status: Reports: Alert, Normal Affect, Normal Mood
[2020-10-20] MEDS: Apixaban 5 MG Tab PO SCH (08:24)
[2020-10-20] MEDS: ARFORMOTEROL 15 MCG/2 ML INH SCH (08:24)
[2020-10-20] MEDS: Digoxin 125 MCG Tab PO SCH (08:25)
[2020-10-20] MEDS: Clopidogrel 75 MG Tab PO SCH (08:25)
[2020-10-20] MEDS: Diltiazem 240 MG Cap.ER PO SCH (08:25)
[2020-10-20] MEDS: Metoprolol Tartrate 50 MG Tab PO SCH (08:26)
[2020-10-20] MEDS: Tiotropium Inhaler 18 MCG Inhalation Powder Cap Kit of 5 INH SCH (08:26)
[2020-10-20] MEDS: Loratadine 10 MG Tab PO SCH (08:26)
[2020-10-20] MEDS: predniSONE 10 MG Tab PO SCH (08:27)
[2020-10-20] MEDS: Budesonide 0.5 MG/2 ML Neb Susp INH SCH (09:29)
== END 2020-10-20 11:00 | disposition home or self-care (01) | DRG 603 ==
LOC: DL.ED 10:18 → DL.MS 12:42
PROVIDERS: ADMIT Internal Medicine; ATTEND Internal Medicine
DX: R53.83 Other fatigue (principal); L03.116 Cellulitis of left lower limb; E87.0 Hyperosmolality and hypernatremia; D68.9 Coagulation defect, unspecified; C64.2 Malignant neoplasm of left kidney, except renal pelvis; N28.9 Disorder of kidney and ureter, unspecified; E66.9 Obesity, unspecified; D75.1 Secondary polycythemia; Z85.528 Personal history of other malignant neoplasm of kidney; E80.6 Other disorders of bilirubin metabolism; Z79.02 Long term (current) use of antithrombotics/antiplatelets; Z79.52 Long term (current) use of systemic steroids; Z79.899 Other long term (current) drug therapy; J44.9 Chronic obstructive pulmonary disease, unspecified; K21.9 Gastro-esophageal reflux disease without esophagitis; E78.5 Hyperlipidemia, unspecified; I11.0 Hypertensive heart disease with heart failure; I50.9 Heart failure, unspecified; J30.2 Other seasonal allergic rhinitis; I48.91 Unspecified atrial fibrillation; Z79.01 Long term (current) use of anticoagulants; I25.2 Old myocardial infarction; Z95.5 Presence of coronary angioplasty implant and graft; I25.10 Atherosclerotic heart disease of native coronary artery without angina pectoris; Z20.822 Contact with and (suspected) exposure to COVID-19; G47.33 Obstructive sleep apnea (adult) (pediatric); D45 Polycythemia vera
CPT/HCPCS: 36415; 80048; 80053; 80162; 80202; 83605; 85025; 85379; 85610; 87040; 94640; 99284; A9270-GY; J0690; J2543; J3370; J7030; J7050; J7512; J7620-GY; U0002

== ENCOUNTER 2020-11-22 06:16 | Emergency (ER) | payer OTHER, MEDICARE ==
[2020-11-22] MEDS: Furosemide 40 MG/4 ML VIAL ONE ×2 (05:55→08:39)
--- NOTE | 2020-11-22 06:13 | EDM.PDOC ---
<Corie Gutierrez - Last Filed: 11/22/20 10:54> ED HPI GENERAL MEDICAL PROBLEM - General Chief Complaint: Respiratory Problem Stated Complaint: AMBULANCE Time Seen by Provider: 11/22/20 05:55 - Related Data Allergies Allergy/AdvReac Type Severity Reaction Status Date / Time No Known Allergies Allergy Verified 09/20/20 14:01 Home Meds: Home Meds Albuterol Sulfate [Albuterol Sulfate Hfa] 2 puff INH Q6H PRN 03/10/20 [History] Arformoterol [Brovana] 15 mcg NEB BID 03/10/20 [History] Budesonide [Pulmicort] 0.5 mg IH BID 03/10/20 [History] Bumetanide [Bumex] 1 mg PO DAILY 03/10/20 [History] Cetirizine HCl [Zyrtec] 10 mg PO DAILY PRN 03/10/20 [History] Cholecalciferol (Vitamin D3) [Vitamin D3] 800 unit PO DAILY 03/10/20 [History] Clopidogrel [Plavix] 75 mg PO DAILY 03/10/20 [History] Ipratropium/Albuterol Sulfate [Iprat-Albut 0.5-3(2.5) mg/3 ml] 3 ml IH Q4H PRN 03/10/20 [History] Ketotifen [Ketotifen 0.025% Ophth Soln] 1 drop EYEBOTH BID 03/10/20 [History] Lactobacillus 3/Fos/Pantethine [Probiotic & Acidophilus] 1 cap PO DAILY 03/10/20 [History] Magnesium Oxide 420 mg PO DAILY 03/10/20 [History] Metoprolol Tartrate 100 mg PO BID 03/10/20 [History] Nicotine Polacrilex [Nicotine Lozenge] 2 mg BC Q2H PRN 03/10/20 [History] Nitroglycerin [Nitrostat] 0.4 mg SL ASDIRECTED PRN 03/10/20 [History] Omeprazole 20 mg PO ACBREAKFAST 03/10/20 [History] Polyvinyl Alcohol [Artificial Tears] 1 drop OP Q4H PRN 03/10/20 [History] Rosuvastatin [Crestor] 5 mg PO BEDTIME 03/10/20 [History] Tiotropium [Spiriva HandiHaler] 18 mcg INH DAILY 03/10/20 [History] Apixaban [Eliquis] 5 mg PO BID 10/16/20 [History] Digoxin 125 mcg PO DAILY 10/16/20 [History] Diltiazem [Dilacor XR] 240 mg PO DAILY 10/16/20 [History] Docusate Sodium/Sennosides [Senna Plus] 2 each PO BID PRN 10/16/20 [History] Hydroxyurea 500 mg PO MOWEFR 10/16/20 [History] Triamcinolone Acetonide [Triamcinolone Acetonide 0.1% Crm] 1 applic TOP BID PRN 10/16/20 [History] predniSONE [Prednisone] 10 mg PO DAILY 10/16/20 [History] Sulfamethoxazole/Trimethoprim [Bactrim Ds Tablet] 1 each PO BID 7 Days #14 tablet 10/20/20 [Rx] ED ROS GENERAL - Review of Systems Review Of Systems: See Below ED EXAM, GENERAL - Physical Exam Exam: See Below Exam Limited By: Respiratory Distress General Appearance: Alert, Moderate Distress (Respiratory distress), Obese Eye Exam: Bilateral Eye: EOMI, Normal Inspection, PERRL (3mm) Ears: Normal External Exam, Normal Canal, Hearing Grossly Normal, Normal TMs Ear Exam: Bilateral Ear: Auricle Normal, Canal Normal, TM normal Nose: Normal Inspection, Normal Mucosa, No Blood Throat/Mouth: Normal Voice, No Airway Compromise. No: Normal Lips (Dry, cracked), Normal Oropharynx (Dry mucous membranes) Head: Atraumatic, Normocephalic Neck: Normal Inspection, Supple, Non-Tender, Full Range of Motion Respiratory/Chest: Chest Non-Tender, Rales, Rhonchi, Wheezing, Accessory Muscle Use, Prolonged Expiration, Other (On home O2 at baseline at 4L; currently on 6L) Cardiovascular: Tachycardia, Irregularly Irregular. No: No Edema Peripheral Pulses: 2+: Radial (L), Radial (R), Dorsalis Pedis (L), Dorsalis Pedis (R) GI/Abdominal: Normal Bowel Sounds, Soft, Non-Tender, No Distention, No Abnormal Bruit, No Mass, Pelvis Stable (Male) Exam: Deferred Rectal (Males) Exam: Deferred Back Exam: Normal Inspection, Full Range of Motion Extremities: Normal Capillary Refill, Pedal Edema (+2 pitting, bilaterally), Leg Pain (To bilateral feet), Limited Range of Motion (Pain to bilateral feet), Redness (To right distal foot) Neurological: Alert, Oriented, CN II-XII Intact, Normal Cognition, Normal Gait, No Motor/Sensory Deficits Psychiatric: Normal Affect, Normal Mood Skin Exam: Warm, Dry, Intact, No Rash, Erythema (See above). No: Mottled, Pallor, Petechiae #1 Interpretation EKG Date: 11/22/20 Time: 06:35 Rhythm: A-Flutter Rate (Beats/Min): 91 [place]: Normal P-Wave: Absent QRS: Normal ST-T: Normal QT: Normal Course - Radiology Interpretation Free Text/Narrative:: [facility] Final Radiology Report Call: [phone] assistance Online chat: [email or web address] Name: JAMES KIM Age: 80Years M Date: 11/22/2020 SSN: -- : [id number] Study: CR CHEST 1V FRONTAL Requesting Physician: KARIN AYERS Images: 1 Addl Studies: Provided Clinical History: SOB Contrast: Contrast Medium: Contrast Amount: Contrast Method: CONFIDENTIALITY STATEMENT This report is intended only for use by the referring physician, and only in accordance with law. If you received this in error, call [phone]. Page 1 of 1 PROCEDURE INFORMATION: Exam: XR Chest Exam date and time: 11/22/2020 6:09 AM Age: 80 years old Clinical indication: Shortness of breath. TECHNIQUE: Imaging protocol: XR of the chest. Views: 1 view. COMPARISON: CR Chest 1V Frontal 09/20/2020 3:01 PM FINDINGS: Lungs: Poor inspiration. Decreased lung volumes. Linear opacities present in both lung bases compatible with atelectasis. No central pulmonary vascular congestion or perihilar edema. Pleural spaces: No pleural effusion or pneumothorax. Heart/Mediastinum: The cardiac silhouette is not enlarged. The mediastinal contours are normal. Bones/joints: No acute osseous abnormality. IMPRESSION: Bibasilar atelectasis. Thank you for allowing us to participate in the care of your patient. Dictated and Authenticated by: Berhane Grimm MD 11/22/2020 8:04 AM Central Time ([place] & [place]) - Re-Assessments/Exams Free Text/Narrative Re-Assessment/Exam: 11/22/20 Color Artist assumed care of patient from Karin Ayers PA-C at 0700. Findings of examination, lab work, and imaging reviewed with patient. Discussed need for hospitalization for CHF exacerbation and cellulitis. Patient states he wants to be transferred to the [facility] in [place] and refuses admission at this facility. Case discussed with Dr. Arredondo, hospitalist at [facility], who kindly agreed to accept patient for transfer. Patient verbalized understanding and agreement with the plan of care. Departure - Departure Time of Disposition: 10:21 Disposition: DC/Tfer to Acute Hospital 02 Condition: Fair Clinical Impression: CHF exacerbation Qualifiers: Heart failure type: unspecified Qualified Code(s): I50.9 - Heart failure, unspecified Cellulitis Qualifiers: Site of cellulitis: extremity Site of cellulitis of extremity: lower extremity Laterality: left Qualified Code(s): L03.116 - Cellulitis of left lower limb - Discharge Information Forms: ED Department Discharge, Interfacility Transfer EMTALA <MaryKarin Christos - Last Filed: 11/22/20 19:32> ED HPI GENERAL MEDICAL PROBLEM - General Source of Information: Reports: Patient, EMS, Alf Records History Limitations: Reports: No Limitations - History of Present Illness INITIAL COMMENTS - FREE TEXT/NARRATIVE: ED via [facility] with onset of SOB at midnight, worsening No cough, HX COPD, CHF. Recent cellulitis. Lower left leg red. Chest pain anterior across chest with movement. EMS reported patient ambulated 2 steps with drop in sats to low 80"s on oxygen Upper Anterior Chest Pain Score (Numeric/FACES): 10 Past Medical History HEENT History: Reports: Cataract Cardiovascular History: Reports: Afib, Heart Failure, High Cholesterol, [place] Respiratory History: Reports: COPD, Sleep Apnea Gastrointestinal History: Reports: GERD Genitourinary History: Reports: Renal Disease, Other (See Below) Other Genitourinary History: chrioblast? Musculoskeletal History: Reports: Fracture Neurological History: Reports: None Psychiatric History: Reports: Addiction Endocrine/Metabolic History: Reports: Obesity/BMI 30+ Hematologic History: Reports: Polycythemia Immunologic History: Reports: None Oncologic (Cancer) History: Reports: Renal Dermatologic History: Reports: Cellulitis - Infectious Disease History Infectious Disease History: Reports: Chicken Pox, Measles, Mumps, Shingles - Past Surgical History Head Surgeries/Procedures: Reports: None Cardiovascular Surgical History: Reports: Coronary Artery Stent Male Surgical History: Reports: Other (See Below) Musculoskeletal Surgical History: Reports: Arthroscopic Knee, Carpal Tunnel Social & Family History - Family History Family Medical History: No Pertinent Family History - Tobacco Use Tobacco Use Status *Q: Former Tobacco User Used Tobacco, but Quit: Yes Month/Year Tobacco Last Used: 0 - Caffeine Use Caffeine Use: Reports: Coffee - Living Situation & Occupation Occupation: Retired ED ROS GENERAL - Review of Systems Constitutional: Reports: Fatigue, Weight Gain (1# past couple days). Denies: Fever, Chills HEENT: Reports: No Symptoms, Glasses Respiratory: Reports: Shortness of Breath. Denies: Cough Cardiovascular: Reports: Dyspnea on Exertion, Edema, Orthopnea GI/Abdominal: Reports: No Symptoms Musculoskeletal: Reports: Leg Pain (lwer) Skin: Reports: Erythema (left leg) Psychiatric: Reports: Anxiety Course - Vital Signs Text/Narrative:: mild improvement in breathing and anxiety following neb, and nonrebreather mask Last Recorded V/S: Last Vital Signs Temp 100.5 F 11/22/20 05:55 Pulse 92 11/22/20 09:27 Resp 22 H 11/22/20 05:55 BP 144/106 H 11/22/20 05:55 Pulse Ox 91 L 11/22/20 05:55 - Orders/Labs/Meds Orders: Active Orders 24 hr Category Date Time Status CULTURE BLOOD [BC] Stat Lab 11/22/20 06:07 Received CULTURE BLOOD [BC] Stat Lab 11/22/20 06:07 Received CULTURE URINE [RM] Stat Lab 11/22/20 06:59 Received Blood Culture x2 Reflex Set [OM.PC] Stat Oth 11/22/20 05:42 Ordered Labs: Laboratory Tests 11/22/20 11/22/20 11/22/20 Range/Units 00:15 06:07 06:07 WBC 28.0 H* (5.0-10.0) 10^3/uL RBC 5.93 (4.6-6.2) 10^6/uL Hgb 15.3 (14.0-18.0) g/dL Hct 52.2 (40.0-54.0) % MCV 88.0 D (80-100) fL MCH 25.8 L (27.0-34.0) pg MCHC 29.3 L (33.0-35.0) g/dL Plt Count 343 (150-450) 10^3/uL Neut % (Auto) 87.3 H (42.2-75.2) % Lymph % (Auto) 4.2 L (20.5-50.1) % [place]ke % (Auto) 6.3 (2-8) % Eos % (Auto) 1.8 (1.0-3.0) % Baso % (Auto) 0.4 (0.0-1.0) % Add Manual Diff Yes Neutrophils % (Manual) 87 H (42-75) % Band Neutrophils % 8 % Lymphocytes % (Manual) 1 L (20-50) % Monocytes % (Manual) 4 (2-8) % PT (9.0-12.0) SEC INR (0.9-1.2) ABG pH 7.42 (7.35-7.45) ABG pCO2 56 H (35-45) mmHg ABG pO2 81 (70-100) mmHg ABG HCO3 35.1 H (22-26) mmol/L ABG O2 Saturation 97 (95-100) % ABG Base Excess 9 H ((-2)-(+3)) mmol/L Honorio Test pos O2 Delivery Device Nasal cannula Oxygen Flow Rate 2 Sodium 145 (136-145) mmol/L Potassium 4.7 (3.5-5.1) mmol/L Chloride 101 (98-107) mmol/L Carbon Dioxide 38 H (21-32) mmol/L Anion Gap 10.7 (7-13) mEq/L BUN 20 H (7-18) mg/dL Creatinine 1.36 H (0.70-1.30) mg/dL Est Cr Clr Drug Dosing TNP Estimated GFR (MDRD) 51 BUN/Creatinine Ratio 14.7 (No establ ref range) Glucose 193 H (70-99) mg/dL Lactic Acid (0.4-2.0) mmol/L Calcium 8.8 (8.5-10.1) mg/dL Total Bilirubin 1.1 H (0.2-1.0) mg/dL AST 9 L (15-37) U/L ALT 17 (16-63) U/L Alkaline Phosphatase 101 (46-116) U/L Troponin I High Sens 16 (<=76) pg/mL B-Natriuretic Peptide 207 H (0-100) pg/ml Total Protein 7.1 (6.4-8.2) g/dL Albumin 3.7 (3.4-5.0) g/dL Globulin 3.4 Albumin/Globulin Ratio 1.1 Urine Color (YELLOW) Urine Appearance (CLEAR) Urine pH (5.0-9.0) Ur Specific [place] (1.005-1.030) Urine Protein (NEGATIVE) Urine Glucose (UA) (NEGATIVE) Urine Ketones (NEGATIVE) Urine Occult Blood (NEGATIVE) Urine Nitrite (NEGATIVE) Urine Bilirubin (NEGATIVE) Urine Urobilinogen (0.2-1.0) mg/dL Ur Leukocyte Esterase (NEGATIVE) Urine RBC /HPF Urine WBC (0-5/HPF) /HPF Ur Epithelial Cells (NOT SEEN) /HPF Urine Bacteria (0-FEW/HPF) /HPF Urine Mucus (NOT SEEN) /LPF Digoxin (0.9-2.0) ng/mL SARS-CoV-2 RNA (SHAHRZAD) (NEGATIVE) 11/22/20 11/22/20 11/22/20 Range/Units 06:07 06:07 06:07 WBC (5.0-10.0) 10^3/uL RBC (4.6-6.2) 10^6/uL Hgb (14.0-18.0) g/dL Hct (40.0-54.0) % MCV (80-100) fL MCH (27.0-34.0) pg MCHC (33.0-35.0) g/dL Plt Count (150-450) 10^3/uL Neut % (Auto) (42.2-75.2) % Lymph % (Auto) (20.5-50.1) % Parke % (Auto) (2-8) % Eos % (Auto) (1.0-3.0) % Baso % (Auto) (0.0-1.0) % Add Manual Diff Neutrophils % (Manual) (42-75) % Band Neutrophils % % Lymphocytes % (Manual) (20-50) % Monocytes % (Manual) (2-8) % PT 12.1 H (9.0-12.0) SEC INR 1.2 (0.9-1.2) ABG pH (7.35-7.45) ABG pCO2 (35-45) mmHg ABG pO2 (70-100) mmHg ABG HCO3 (22-26) mmol/L ABG O2 Saturation (95-100) % ABG Base Excess ((-2)-(+3)) mmol/L Honorio Test O2 Delivery Device Oxygen Flow Rate Sodium (136-145) mmol/L Potassium (3.5-5.1) mmol/L Chloride (98-107) mmol/L Carbon Dioxide (21-32) mmol/L Anion Gap (7-13) mEq/L BUN (7-18) mg/dL Creatinine (0.70-1.30) mg/dL Est Cr Clr Drug Dosing Estimated GFR (MDRD) BUN/Creatinine Ratio (No establ ref range) Glucose (70-99) mg/dL Lactic Acid 1.8 (0.4-2.0) mmol/L Calcium (8.5-10.1) mg/dL Total Bilirubin (0.2-1.0) mg/dL AST (15-37) U/L ALT (16-63) U/L Alkaline Phosphatase (46-116) U/L Troponin I High Sens (<=76) pg/mL B-Natriuretic Peptide (0-100) pg/ml Total Protein (6.4-8.2) g/dL Albumin (3.4-5.0) g/dL Globulin Albumin/Globulin Ratio Urine Color (YELLOW) Urine Appearance (CLEAR) Urine pH (5.0-9.0) Ur Specific [place] (1.005-1.030) Urine Protein (NEGATIVE) Urine Glucose (UA) (NEGATIVE) Urine Ketones (NEGATIVE) Urine Occult Blood (NEGATIVE) Urine Nitrite (NEGATIVE) Urine Bilirubin (NEGATIVE) Urine Urobilinogen (0.2-1.0) mg/dL Ur Leukocyte Esterase (NEGATIVE) Urine RBC /HPF Urine WBC (0-5/HPF) /HPF Ur Epithelial Cells (NOT SEEN) /HPF Urine Bacteria (0-FEW/HPF) /HPF Urine Mucus (NOT SEEN) /LPF Digoxin 0.6 L (0.9-2.0) ng/mL SARS-CoV-2 RNA (SHAHRZAD) (NEGATIVE) 11/22/20 11/22/20 Range/Units 06:59 10:24 WBC (5.0-10.0) 10^3/uL RBC (4.6-6.2) 10^6/uL Hgb (14.0-18.0) g/dL Hct (40.0-54.0) % MCV (80-100) fL MCH (27.0-34.0) pg MCHC (33.0-35.0) g/dL Plt Count (150-450) 10^3/uL Neut % (Auto) (42.2-75.2) % Lymph % (Auto) (20.5-50.1) % [place] % (Auto) (2-8) % Eos % (Auto) (1.0-3.0) % Baso % (Auto) (0.0-1.0) % Add Manual Diff Neutrophils % (Manual) (42-75) % Band Neutrophils % % Lymphocytes % (Manual) (20-50) % Monocytes % (Manual) (2-8) % PT (9.0-12.0) SEC INR (0.9-1.2) ABG pH (7.35-7.45) ABG pCO2 (35-45) mmHg ABG pO2 (70-100) mmHg ABG HCO3 (22-26) mmol/L ABG O2 Saturation (95-100) % ABG Base Excess ((-2)-(+3)) mmol/L Honorio Test O2 Delivery Device Oxygen Flow Rate Sodium (136-145) mmol/L Potassium (3.5-5.1) mmol/L Chloride (98-107) mmol/L Carbon Dioxide (21-32) mmol/L Anion Gap (7-13) mEq/L BUN (7-18) mg/dL Creatinine (0.70-1.30) mg/dL Est Cr Clr Drug Dosing Estimated GFR (MDRD) BUN/Creatinine Ratio (No establ ref range) Glucose (70-99) mg/dL Lactic Acid (0.4-2.0) mmol/L Calcium (8.5-10.1) mg/dL Total Bilirubin (0.2-1.0) mg/dL AST (15-37) U/L ALT (16-63) U/L Alkaline Phosphatase (46-116) U/L Troponin I High Sens (<=76) pg/mL B-Natriuretic Peptide (0-100) pg/ml Total Protein (6.4-8.2) g/dL Albumin (3.4-5.0) g/dL Globulin Albumin/Globulin Ratio Urine Color Yellow (YELLOW) Urine Appearance Clear (CLEAR) Urine pH 7.0 (5.0-9.0) Ur Specific [place] 1.015 (1.005-1.030) Urine Protein Negative (NEGATIVE) Urine Glucose (UA) Negative (NEGATIVE) Urine Ketones Negative (NEGATIVE) Urine Occult Blood Negative (NEGATIVE) Urine Nitrite Negative (NEGATIVE) Urine Bilirubin Negative (NEGATIVE) Urine Urobilinogen 0.2 (0.2-1.0) mg/dL Ur Leukocyte Esterase Moderate H (NEGATIVE) Urine RBC Not seen /HPF Urine WBC 0-5 (0-5/HPF) /HPF Ur Epithelial Cells Rare (NOT SEEN) /HPF Urine Bacteria Rare (0-FEW/HPF) /HPF Urine Mucus Not seen (NOT SEEN) /LPF Digoxin (0.9-2.0) ng/mL SARS-CoV-2 RNA (SHAHRZAD) Negative (NEGATIVE) Meds: Medications Discontinued Medications Generic Name Dose Route Start Last Admin Trade Name Rosemary PRN Reason Stop Dose Admin Albuterol Confirm 11/22/20 05:41 11/22/20 05:56 Albuterol 0.083% 2.5 Mg/3 Ml Neb Soln Administered 11/22/20 05:42 Not Given Dose 2.5 mg .ROUTE .STK-MED ONE Albuterol 2.5 mg 11/22/20 05:42 11/22/20 05:55 Albuterol 0.083% 2.5 Mg/3 Ml Neb Soln NEB 11/22/20 05:43 2.5 mg ONETIME ONE Administration Albuterol/Ipratropium 3 ml 11/22/20 09:08 11/22/20 09:27 Albuterol/Ipratropium 3.0-0.5 Mg/3 Ml Neb Soln NEB 11/22/20 09:09 3 ml ONETIME ONE Administration Furosemide Confirm 11/22/20 05:41 11/22/20 08:39 Furosemide 40 Mg/4 Ml Vial Administered 11/22/20 05:42 Not Given Dose 40 mg .ROUTE .STK-MED ONE Furosemide 40 mg 11/22/20 06:16 11/22/20 05:55 Furosemide 40 Mg/4 Ml Vial IVPUSH 11/22/20 06:17 40 mg ONETIME ONE Administration Clindamycin Phosphate 600 mg/ 104 mls @ 200 mls/hr 11/22/20 10:02 11/22/20 10:25 Sodium Chloride IV 11/22/20 10:33 200 mls/hr ONETIME ONE Administration Methylprednisolone Sodium Succinate 125 mg 11/22/20 05:47 11/22/20 06:00 Methylprednisolone Sodium Succinate 125 Mg/2 Ml Sdv IVPUSH 11/22/20 05:48 125 mg ONETIME ONE Administration Sepsis Event Note (ED) - Evaluation Sepsis Screening Result: No Definite Risk - Focused Exam Vital Signs: Vital Signs Pulse 11/22/20 09:27 92 - My Orders Last 24 Hours: My Active Orders 11/22/20 05:42 Blood Culture x2 Reflex Set [OM.PC] Stat 11/22/20 06:07 CULTURE BLOOD [BC] Stat CULTURE BLOOD [BC] Stat 11/22/20 06:59 CULTURE URINE [RM] Stat - Assessment/Plan Last 24 Hours: My Active Orders 11/22/20 05:42 Blood Culture x2 Reflex Set [OM.PC] Stat 11/22/20 06:07 CULTURE BLOOD [BC] Stat CULTURE BLOOD [BC] Stat 11/22/20 06:59 CULTURE URINE [RM] Stat
[2020-11-22 06:14] LABS: BASE EXCESS ARTERIAL 9 mmol/L ((-2)-(+3)); BICARBONATE,ARTERIAL 35.1 mmol/L (22-26); O2 DELIVERY DEVICE NASAL CANNULA; O2 SATURATION ARTERIAL 97 % (95-100); PCO2 ARTERIAL 56 mmHg (35-45); PO2 ARTERIAL 81 mmHg (70-100)
[~2020-11-22 06:16] MED LIST: Albuterol 0.083% 2.5 MG/3 ML Neb Soln NEB ONE; Albuterol 0.083% 2.5 MG/3 ML Neb Soln ONE; Furosemide 40 MG/4 ML VIAL IVPUSH ONE; methylPREDNISolone Sodium Succinate 125 MG/2 ML SDV IVPUSH ONE
[2020-11-22 06:22] LABS: ALLEN TEST pos; O2 FLOW RATE 2
[2020-11-22 06:39] LABS: ANION GAP 10.7 mEq/L (7-13); CHLORIDE,CL 101 mmol/L (98-107); SODIUM,NA 145 mmol/L (136-145)
--- NOTE | 2020-11-22 08:05 | CR ---
PROCEDURE INFORMATION: Exam: XR Chest Exam date and time: 11/22/2020 6:09 AM Age: 80 years old Clinical indication: Shortness of breath. TECHNIQUE: Imaging protocol: XR of the chest. Views: 1 view. COMPARISON: CR Chest 1V Frontal 09/20/2020 3:01 PM FINDINGS: Lungs: Poor inspiration. Decreased lung volumes. Linear opacities present in both lung bases compatible with atelectasis. No central pulmonary vascular congestion or perihilar edema. Pleural spaces: No pleural effusion or pneumothorax. Heart/Mediastinum: The cardiac silhouette is not enlarged. The mediastinal contours are normal. Bones/joints: No acute osseous abnormality. IMPRESSION: Bibasilar atelectasis.
[2020-11-22] MEDS ORDERED: Albuterol/Ipratropium 3.0-0.5 MG/3 ML Neb Soln NEB ONE (09:08)
[2020-11-22] MEDS ORDERED: Clindamycin Phosphate 600 MG in Sodium Chloride 0.9% 100 ML IV ONE (10:02)
== END 2020-11-22 10:51 ==
LOC: DL.ED 06:16
DX: I50.9 Heart failure, unspecified (principal); L03.116 Cellulitis of left lower limb; I48.91 Unspecified atrial fibrillation; J44.9 Chronic obstructive pulmonary disease, unspecified; E78.00 Pure hypercholesterolemia, unspecified; I25.2 Old myocardial infarction; E66.9 Obesity, unspecified; Z68.30 Body mass index [BMI] 30.0-30.9, adult; Z79.899 Other long term (current) drug therapy
CPT/HCPCS: 36415; 36600; 71045; 80053; 80162; 81001; 82803; 83605; 83880; 84484; 85025; 85610; 87040; 87086; 93005; 93010; 94640; 96365; 96375; 99284; 99285-25; J1940; J2930; J3490; J7613-GY; J7620-GY; U0002

== ENCOUNTER 2020-11-27 07:27 | Emergency (ER) | payer OTHER, MEDICARE ==
--- NOTE | 2020-11-27 07:31 | EDM.PDOC ---
ED HPI GENERAL MEDICAL PROBLEM - General Chief Complaint: Respiratory Problem Stated Complaint: Shortness of breath Time Seen by Provider: 11/27/20 07:45 Source of Information: Reports: Patient History Limitations: Reports: No Limitations - History of Present Illness INITIAL COMMENTS - FREE TEXT/NARRATIVE: This 80 yo male patient was brought to the ED by [facility] due to increased shortness of breath. The patient [facility] and got home last evening. The patient reports his shortness of breath increased just prior to calling for the ambulance. The patient also reports some abdominal bloating and left sided abdominal pressure. The patient has a history of COPD and CHF. The patient reports he was discharged on an antibiotic for his CHF and Cellulitis of the left lower extremity. The patient reports the cellulitis has been getting better with the antibiotics. The patient reports he was feeling better last night when he got home. Onset: Today Duration: Constant, Getting Worse Location: Reports: Chest Quality: Reports: Dull, Pressure Severity: Moderate Improves with: Reports: None Worsens with: Reports: None Context: Reports: Other Associated Symptoms: Reports: No Other Symptoms - Related Data Allergies Allergy/AdvReac Type Severity Reaction Status Date / Time codeine Allergy Cannot Verified 11/27/20 07:33 Remember Home Meds: Home Meds Albuterol Sulfate [Albuterol Sulfate Hfa] 2 puff INH Q6H PRN 03/10/20 [History] Arformoterol [Brovana] 15 mcg NEB BID 03/10/20 [History] Budesonide [Pulmicort] 0.5 mg IH BID 03/10/20 [History] Bumetanide [Bumex] 1 mg PO DAILY 03/10/20 [History] Cetirizine HCl [Zyrtec] 10 mg PO DAILY PRN 03/10/20 [History] Cholecalciferol (Vitamin D3) [Vitamin D3] 800 unit PO DAILY 03/10/20 [History] Clopidogrel [Plavix] 75 mg PO DAILY 03/10/20 [History] Ipratropium/Albuterol Sulfate [Iprat-Albut 0.5-3(2.5) mg/3 ml] 3 ml IH Q4H PRN 03/10/20 [History] Ketotifen [Ketotifen 0.025% Ophth Soln] 1 drop EYEBOTH BID 03/10/20 [History] Lactobacillus 3/Fos/Pantethine [Probiotic & Acidophilus] 1 cap PO DAILY 03/10/20 [History] Magnesium Oxide 420 mg PO DAILY 03/10/20 [History] Metoprolol Tartrate 100 mg PO BID 03/10/20 [History] Nicotine Polacrilex [Nicotine Lozenge] 2 mg BC Q2H PRN 03/10/20 [History] Nitroglycerin [Nitrostat] 0.4 mg SL ASDIRECTED PRN 03/10/20 [History] Omeprazole 20 mg PO ACBREAKFAST 03/10/20 [History] Polyvinyl Alcohol [Artificial Tears] 1 drop OP Q4H PRN 03/10/20 [History] Rosuvastatin [Crestor] 5 mg PO BEDTIME 03/10/20 [History] Tiotropium [Spiriva HandiHaler] 18 mcg INH DAILY 03/10/20 [History] Apixaban [Eliquis] 5 mg PO BID 10/16/20 [History] Digoxin 125 mcg PO DAILY 10/16/20 [History] Diltiazem [Dilacor XR] 240 mg PO DAILY 10/16/20 [History] Docusate Sodium/Sennosides [Senna Plus] 2 each PO BID PRN 10/16/20 [History] Hydroxyurea 500 mg PO MOWEFR 10/16/20 [History] Triamcinolone Acetonide [Triamcinolone Acetonide 0.1% Crm] 1 applic TOP BID PRN 10/16/20 [History] predniSONE [Prednisone] 10 mg PO DAILY 10/16/20 [History] Sulfamethoxazole/Trimethoprim [Bactrim Ds Tablet] 1 each PO BID 7 Days #14 tablet 10/20/20 [Rx] Past Medical History HEENT History: Reports: Cataract Cardiovascular History: Reports: Afib, Heart Failure, High Cholesterol, CT Respiratory History: Reports: COPD, Sleep Apnea Gastrointestinal History: Reports: GERD Genitourinary History: Reports: Renal Disease, Other (See Below) Other Genitourinary History: chrioblast? Musculoskeletal History: Reports: Fracture Neurological History: Reports: None Psychiatric History: Reports: Addiction Endocrine/Metabolic History: Reports: Obesity/BMI 30+ Hematologic History: Reports: Polycythemia Immunologic History: Reports: None Oncologic (Cancer) History: Reports: Renal Dermatologic History: Reports: Cellulitis - Infectious Disease History Infectious Disease History: Reports: Chicken Pox, Measles, Mumps, Shingles - Past Surgical History Head Surgeries/Procedures: Reports: None Cardiovascular Surgical History: Reports: Coronary Artery Stent Male Surgical History: Reports: Other (See Below) Musculoskeletal Surgical History: Reports: Arthroscopic Knee, Carpal Tunnel Social & Family History - Family History Family Medical History: No Pertinent Family History - Caffeine Use Caffeine Use: Reports: Coffee - Living Situation & Occupation Occupation: Retired ED ROS GENERAL - Review of Systems Review Of Systems: Comprehensive ROS is negative, except as noted in HPI. ED EXAM, GENERAL - Physical Exam Exam: See Below Exam Limited By: No Limitations General Appearance: Alert, WD/WN, Moderate Distress, Obese Eye Exam: Bilateral Eye: EOMI, Normal Inspection, PERRL Ears: Normal External Exam, Normal Canal, Hearing Grossly Normal, Normal TMs Nose: Normal Inspection, Normal Mucosa, No Blood Throat/Mouth: Normal Inspection, Normal Lips, Normal Teeth, Normal Gums, Normal Oropharynx, Normal Voice, No Airway Compromise Head: Atraumatic, Normocephalic Neck: Normal Inspection, Supple, Non-Tender, Full Range of Motion Respiratory/Chest: No Respiratory Distress, Lungs Clear, Normal Breath Sounds, No Accessory Muscle Use, Chest Non-Tender Cardiovascular: Tachycardia GI/Abdominal: Normal Bowel Sounds, Tender (left lateral side) Rectal (Males) Exam: Deferred Back Exam: Normal Inspection, Full Range of Motion, NT Extremities: Normal Inspection, Normal Range of Motion, Non-Tender, Normal Capillary Refill, No Pedal Edema Neurological: Alert, Oriented, CN II-XII Intact, Normal Cognition, Normal Gait, Normal Reflexes, No Motor/Sensory Deficits Psychiatric: Normal Affect, Normal Mood Skin Exam: Warm, Dry, Intact, Other (erythema left lower extremity) Lymphatic: No Adenopathy #1 Interpretation EKG Date: 11/27/20 Time: 07:37 Rhythm: A-Flutter Rate (Beats/Min): 123 [place]: Normal P-Wave: Present QRS: Normal Comparison: NA - No Prior EKG Course - Vital Signs Last Recorded V/S: Last Vital Signs Temp 100.0 F 11/27/20 07:34 Pulse 114 H 11/27/20 07:34 Resp 24 H 11/27/20 07:34 BP 99/87 07/27/21 07:34 Pulse Ox 96 11/27/20 07:34 - Orders/Labs/Meds Orders: Active Orders 24 hr Category Date Time Status EKG Documentation Completion [RC] STAT Care 11/27/20 07:34 Active Labs: Laboratory Tests 11/27/20 11/27/20 11/27/20 Range/Units 07:39 07:44 07:44 WBC 31.5 H* (5.0-10.0) 10^3/uL RBC 6.43 H (4.6-6.2) 10^6/uL Hgb 16.7 (14.0-18.0) g/dL Hct 54.1 H (40.0-54.0) % MCV 84.1 D (80-100) fL MCH 26.0 L (27.0-34.0) pg MCHC 30.9 L (33.0-35.0) g/dL Plt Count 320 (150-450) 10^3/uL Neut % (Auto) 89.3 H (42.2-75.2) % Lymph % (Auto) 3.1 L (20.5-50.1) % [place] % (Auto) 6.7 (2-8) % Eos % (Auto) 0.8 L (1.0-3.0) % Baso % (Auto) 0.1 (0.0-1.0) % Add Manual Diff Yes Neutrophils % (Manual) 84 H (42-75) % Band Neutrophils % 4 % Lymphocytes % (Manual) 5 L (20-50) % Monocytes % (Manual) 5 (2-8) % Eosinophils % (Manual) 2 (1-3) % Sodium 142 (136-145) mmol/L Potassium 3.8 (3.5-5.1) mmol/L Chloride 100 (98-107) mmol/L Carbon Dioxide 38 H (21-32) mmol/L Anion Gap 7.8 (7-13) mEq/L BUN 34 H (7-18) mg/dL Creatinine 1.20 (0.70-1.30) mg/dL Est Cr Clr Drug Dosing 52.38 mL/min Estimated GFR (MDRD) 59 BUN/Creatinine Ratio 28.3 (No establ ref range) Glucose 182 H (70-99) mg/dL Calcium 8.9 (8.5-10.1) mg/dL Total Bilirubin 0.8 (0.2-1.0) mg/dL AST 11 L (15-37) U/L ALT 22 (16-63) U/L Alkaline Phosphatase 82 (46-116) U/L Troponin I High Sens 23 (<=76) pg/mL B-Natriuretic Peptide 347 H (0-100) pg/ml Total Protein 6.3 L (6.4-8.2) g/dL Albumin 3.3 L (3.4-5.0) g/dL Globulin 3.0 Albumin/Globulin Ratio 1.10 Urine Color (YELLOW) Urine Appearance (CLEAR) Urine pH (5.0-9.0) Ur Specific [place] (1.005-1.030) Urine Protein (NEGATIVE) Urine Glucose (UA) (NEGATIVE) Urine Ketones (NEGATIVE) Urine Occult Blood (NEGATIVE) Urine Nitrite (NEGATIVE) Urine Bilirubin (NEGATIVE) Urine Urobilinogen (0.2-1.0) mg/dL Ur Leukocyte Esterase (NEGATIVE) Urine RBC /HPF Urine WBC (0-5/HPF) /HPF Ur Epithelial Cells (NOT SEEN) /HPF Urine Mucus (NOT SEEN) /LPF Influenza Type A RNA Negative (NEGATIVE) Influenza Type B RNA Negative (NEGATIVE) SARS-CoV-2 RNA (SHAHRZAD) Negative (NEGATIVE) 11/27/20 Range/Units 09:44 WBC (5.0-10.0) 10^3/uL RBC (4.6-6.2) 10^6/uL Hgb (14.0-18.0) g/dL Hct (40.0-54.0) % MCV (80-100) fL MCH (27.0-34.0) pg MCHC (33.0-35.0) g/dL Plt Count (150-450) 10^3/uL Neut % (Auto) (42.2-75.2) % Lymph % (Auto) (20.5-50.1) % [place] % (Auto) (2-8) % Eos % (Auto) (1.0-3.0) % Baso % (Auto) (0.0-1.0) % Add Manual Diff Neutrophils % (Manual) (42-75) % Band Neutrophils % % Lymphocytes % (Manual) (20-50) % Monocytes % (Manual) (2-8) % Eosinophils % (Manual) (1-3) % Sodium (136-145) mmol/L Potassium (3.5-5.1) mmol/L Chloride (98-107) mmol/L Carbon Dioxide (21-32) mmol/L Anion Gap (7-13) mEq/L BUN (7-18) mg/dL Creatinine (0.70-1.30) mg/dL Est Cr Clr Drug Dosing mL/min Estimated GFR (MDRD) BUN/Creatinine Ratio (No establ ref range) Glucose (70-99) mg/dL Calcium (8.5-10.1) mg/dL Total Bilirubin (0.2-1.0) mg/dL AST (15-37) U/L ALT (16-63) U/L Alkaline Phosphatase (46-116) U/L Troponin I High Sens (<=76) pg/mL B-Natriuretic Peptide (0-100) pg/ml Total Protein (6.4-8.2) g/dL Albumin (3.4-5.0) g/dL Globulin Albumin/Globulin Ratio Urine Color Dark yellow (YELLOW) Urine Appearance Clear (CLEAR) Urine pH 6.0 (5.0-9.0) Ur Specific [place] 1.010 (1.005-1.030) Urine Protein Trace H (NEGATIVE) Urine Glucose (UA) Negative (NEGATIVE) Urine Ketones Negative (NEGATIVE) Urine Occult Blood Negative (NEGATIVE) Urine Nitrite Negative (NEGATIVE) Urine Bilirubin Negative (NEGATIVE) Urine Urobilinogen 0.2 (0.2-1.0) mg/dL Ur Leukocyte Esterase Negative (NEGATIVE) Urine RBC Not seen /HPF Urine WBC 0-5 (0-5/HPF) /HPF Ur Epithelial Cells Few (NOT SEEN) /HPF Urine Mucus Rare (NOT SEEN) /LPF Influenza Type A RNA (NEGATIVE) Influenza Type B RNA (NEGATIVE) SARS-CoV-2 RNA (SHAHRZAD) (NEGATIVE) Meds: Medications Discontinued Medications Generic Name Dose Route Start Last Admin Trade Name Freq PRN Reason Stop Dose Admin Iopamidol 100 ml 11/27/20 08:36 11/27/20 08:54 Iopamidol 612 Mg/Ml 100 Ml Bottle IVPUSH 11/27/20 08:37 75 ml ONETIME ONE Administration Departure - Departure Time of Disposition: 11:26 Disposition: Home, Self-Care 01 Condition: Fair Clinical Impression: Acute exacerbation of chronic obstructive pulmonary disease (COPD) CHF exacerbation Qualifiers: Heart failure type: unspecified Qualified Code(s): I50.9 - Heart failure, unspecified - Discharge Information *PRESCRIPTION DRUG MONITORING PROGRAM REVIEWED*: Not Applicable *COPY OF PRESCRIPTION DRUG MONITORING REPORT IN PATIENT ANNELISE: Not Applicable Forms: ED Department Discharge Care Plan Goals: Discussed the patient's history, examination, lab, EKG, x-ray and CT results with Dr. Mayorga. Dr. Mayorga accepted the patient for continued evaluation and management as an inpatient at the [facility]. The patient will be transported by [facility]. Sepsis Event Note (ED) - Focused Exam Vital Signs: Vital Signs Temp Pulse Resp BP Pulse Ox 11/27/20 07:34 100.0 F 114 H 24 H 99/87 96 - My Orders Last 24 Hours: My Active Orders 11/27/20 07:34 EKG Documentation Completion [RC] STAT - Assessment/Plan Last 24 Hours: My Active Orders 11/27/20 07:34 EKG Documentation Completion [RC] STAT
[2020-11-27 08:18] LABS: ANION GAP 7.8 mEq/L (7-13)
[2020-11-27 08:27] LABS: CORONAVIRUS COVID-19 NAA NEGATIVE (NEGATIVE)
[2020-11-27] MEDS ORDERED: Iopamidol 612 MG/ML 100 ML Bottle IVPUSH ONE (08:36)
--- NOTE | 2020-11-27 09:39 | CR ---
PROCEDURE INFORMATION: Exam: XR Chest Exam date and time: 11/27/2020 8:20 AM Age: 80 years old Clinical indication: Shortness of breath; Additional info: Short of breath TECHNIQUE: Imaging protocol: XR of the chest. Views: 1 view. COMPARISON: CR Chest 1V Frontal 11/22/2020 6:09 AM FINDINGS: Lungs: Atelectasis present bilateral lung bases. No airspace disease. Pleural spaces: Unremarkable. No pleural effusion. No pneumothorax. Heart/Mediastinum: Unremarkable. No cardiomegaly. Bones/joints: Unremarkable. IMPRESSION: Bilateral lower lobe atelectasis.
--- NOTE | 2020-11-27 09:46 | CT ---
PROCEDURE INFORMATION: Exam: CT Abdomen And Pelvis With Contrast Exam date and time: 11/27/2020 8:51 AM Age: 80 years old Clinical indication: Abdominal pain; Patient HX: Wbc 31.5, patient is also having shortness of breath. ; Additional info: Left abdominal pain TECHNIQUE: Imaging protocol: Computed tomography of the abdomen and pelvis with contrast. Radiation optimization: All CT scans at this facility use at least one of these dose optimization techniques: automated exposure control; mA and/or kV adjustment per patient size (includes targeted exams where dose is matched to clinical indication); or iterative reconstruction. Contrast material: ISOVUE 300; Contrast volume: 75 ml; Contrast route: INTRAVENOUS (IV); COMPARISON: CT Chest wo Cont 03/16/2020 5:36 PM FINDINGS: Lungs: Atelectasis present bilateral lung bases. Heart: Pericardial effusion measuring 9 mm. Liver: Round hypodensity within the left lobe of the liver. No change from prior study. The liver is enlarged at 21.2 cm. Gallbladder and bile ducts: Normal. No calcified stones. No ductal dilation. Pancreas: Normal. No ductal dilation. Spleen: The spleen is enlarged at 15.5 cm. Adrenal glands: Normal. No mass. Kidneys and ureters: Edema present in the right perinephric space. No hydronephrosis bilaterally. Decrease enhancement of superior cortex right kidney. Stomach and bowel: Sigmoid colon diverticulosis. Appendix: No evidence of appendicitis. Intraperitoneal space: Unremarkable. No free air. No significant fluid collection. Vasculature: Calcified coronary artery disease. Atherosclerosis changes abdominal aorta. No aneurysm. Lymph nodes: Unremarkable. No enlarged lymph nodes. Urinary bladder: No urinary bladder calculi. Reproductive: Unremarkable as visualized. Bones/joints: Unremarkable. No acute fracture. Soft tissues: Unremarkable. IMPRESSION: 1. Decreased enhancement superior cortex right kidney with edema in the right perinephric space. Possible pyelonephritis or renal infarction. 2. Hepatosplenomegaly. 3. Colonic diverticulosis. 4. Atelectasis present bilateral lung bases. 5. Small pericardial effusion.
== END 2020-11-27 11:55 | disposition home or self-care (01) ==
LOC: DL.ED 07:27
DX: J44.1 Chronic obstructive pulmonary disease with (acute) exacerbation (principal); I11.0 Hypertensive heart disease with heart failure; I50.9 Heart failure, unspecified; I48.91 Unspecified atrial fibrillation; E78.00 Pure hypercholesterolemia, unspecified; I25.2 Old myocardial infarction; K21.9 Gastro-esophageal reflux disease without esophagitis; I48.92 Unspecified atrial flutter; E66.9 Obesity, unspecified; Z68.34 Body mass index [BMI] 34.0-34.9, adult; Z88.5 Allergy status to narcotic agent; Z79.02 Long term (current) use of antithrombotics/antiplatelets; Z79.01 Long term (current) use of anticoagulants; Z79.899 Other long term (current) drug therapy; Z20.822 Contact with and (suspected) exposure to COVID-19
CPT/HCPCS: 0240U; 36415; 71045; 74177; 80053; 81001; 83880; 84484; 85025; 93005; 99283; 99285-25; Q9967

== ENCOUNTER 2020-12-08 14:32 | Emergency (ER) | payer OTHER, MEDICARE | END 2020-12-08 15:55 | disposition left against medical advice (07) | LOC: DL.ED 14:32 | DX: Z53.21 Procedure and treatment not carried out due to patient leaving prior to being seen by health care provider (principal) ==

== ENCOUNTER 2020-12-10 08:50 | Inpatient (IN) | payer OTHER, MEDICARE ==
--- NOTE | 2020-12-10 08:55 | EDM.PDOC ---
ED HPI GENERAL MEDICAL PROBLEM - General Chief Complaint: Respiratory Problem Stated Complaint: SOB [id number] Time Seen by Provider: 12/10/20 08:55 Source of Information: Reports: Patient, Old Records, RN, RN Notes Reviewed History Limitations: Reports: No Limitations - History of Present Illness INITIAL COMMENTS - FREE TEXT/NARRATIVE: Pt presents to ER by POV with c/o several days of progressively worsening shortness of breath. Pt is home supplemental oxygen dependent at 3L/min. Today he arrives with his oxygen at 5L/min. with oxygen saturation of 84%. Pt denies fever, chills, chest pain, or orthopnea. He reports chronic lower extremity edema, and red discoloration of legs. Pt states he had cardioversion a couple of weeks ago due to A-fib, and he understands that he was converted to sinus rhythm. 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 Treatments, Oxygen - Related Data Allergies Allergy/AdvReac Type Severity Reaction Status Date / Time codeine Allergy Cannot Verified 12/10/20 09:20 Remember Home Meds: Home Meds Albuterol Sulfate [Albuterol Sulfate Hfa] 2 puff INH Q6H PRN 03/10/20 [History] Arformoterol [Brovana] 15 mcg NEB BID 03/10/20 [History] Budesonide [Pulmicort] 0.5 mg IH BID 03/10/20 [History] Bumetanide [Bumex] 1 mg PO DAILY 03/10/20 [History] Cetirizine HCl [Zyrtec] 10 mg PO DAILY PRN 03/10/20 [History] Cholecalciferol (Vitamin D3) [Vitamin D3] 800 unit PO DAILY 03/10/20 [History] Clopidogrel [Plavix] 75 mg PO DAILY 03/10/20 [History] Ipratropium/Albuterol Sulfate [Iprat-Albut 0.5-3(2.5) mg/3 ml] 3 ml IH Q4H PRN 03/10/20 [History] Ketotifen [Ketotifen 0.025% Ophth Soln] 1 drop EYEBOTH BID 03/10/20 [History] Lactobacillus 3/Fos/Pantethine [Probiotic & Acidophilus] 1 cap PO DAILY 03/10/20 [History] Magnesium Oxide 420 mg PO DAILY 03/10/20 [History] Metoprolol Tartrate 100 mg PO BID 03/10/20 [History] Nicotine Polacrilex [Nicotine Lozenge] 2 mg BC Q2H PRN 03/10/20 [History] Nitroglycerin [Nitrostat] 0.4 mg SL ASDIRECTED PRN 03/10/20 [History] Omeprazole 20 mg PO ACBREAKFAST 03/10/20 [History] Polyvinyl Alcohol [Artificial Tears] 1 drop OP Q4H PRN 03/10/20 [History] Rosuvastatin [Crestor] 5 mg PO BEDTIME 03/10/20 [History] Tiotropium [Spiriva HandiHaler] 18 mcg INH DAILY 03/10/20 [History] Apixaban [Eliquis] 5 mg PO BID 10/16/20 [History] Digoxin 125 mcg PO DAILY 10/16/20 [History] Diltiazem [Dilacor XR] 240 mg PO DAILY 10/16/20 [History] Docusate Sodium/Sennosides [Senna Plus] 2 each PO BID PRN 10/16/20 [History] Hydroxyurea 500 mg PO MOWEFR 10/16/20 [History] Triamcinolone Acetonide [Triamcinolone Acetonide 0.1% Crm] 1 applic TOP BID PRN 10/16/20 [History] predniSONE [Prednisone] 10 mg PO DAILY 10/16/20 [History] Past Medical History HEENT History: Reports: Cataract Cardiovascular History: Reports: Afib, Heart Failure, High Cholesterol, [place] Respiratory History: Reports: COPD, Sleep Apnea, SOB Gastrointestinal History: Reports: GERD Genitourinary History: Reports: Renal Disease, Other (See Below) Other Genitourinary History: chrioblast? Musculoskeletal History: Reports: Fracture Neurological History: Reports: None Psychiatric History: Reports: Addiction Endocrine/Metabolic History: Reports: Obesity/BMI 30+ Hematologic History: Reports: Polycythemia Immunologic History: Reports: None Oncologic (Cancer) History: Reports: Renal Dermatologic History: Reports: Cellulitis - Infectious Disease History Infectious Disease History: Reports: Chicken Pox, Measles, Mumps, Shingles - Past Surgical History Head Surgeries/Procedures: Reports: None Cardiovascular Surgical History: Reports: Coronary Artery Stent Male Surgical History: Reports: Other (See Below) Musculoskeletal Surgical History: Reports: Arthroscopic Knee, Carpal Tunnel Social & Family History - Family History Family Medical History: No Pertinent Family History - Tobacco Use Tobacco Use Status *Q: Former Tobacco User Tobacco Use Within Last Twelve Months: Cigarettes - Caffeine Use Caffeine Use: Reports: Coffee - Living Situation & Occupation Living situation: Reports: Alone Occupation: Retired ED ROS GENERAL - Review of Systems Review Of Systems: Comprehensive ROS is negative, except as noted in HPI. ED EXAM, GENERAL - Physical Exam Exam: See Below Exam Limited By: No Limitations General Appearance: Alert, No Apparent Distress, Mild Distress, Other (Chronically ill appearing) Eye Exam: Bilateral Eye: Normal Inspection Nose: Normal Inspection Throat/Mouth: Normal Lips, Normal Voice, No Airway Compromise Head: Atraumatic, Normocephalic Neck: Normal Inspection, Non-Tender Respiratory/Chest: No Accessory Muscle Use, Decreased Breath Sounds, Crackles, Wheezing Cardiovascular: Regular Rate, Rhythm, Other (+2 edema to B/L knees with chronic erythema) GI/Abdominal: Normal Bowel Sounds, Soft, Non-Tender Back Exam: Normal Inspection Extremities: Non-Tender, Normal Capillary Refill, Pedal Edema (Chronic per pt), Redness (Chronic per pt) Neurological: Alert, Oriented, No Motor/Sensory Deficits Psychiatric: Normal Mood Skin Exam: Warm, Dry Course - Vital Signs Last Recorded V/S: Last Vital Signs Temp 97.5 F 12/10/20 09:12 Pulse 92 12/10/20 09:59 Resp 34 H 12/10/20 09:12 BP 117/95 H 12/10/20 09:12 Pulse Ox 84 L 12/10/20 09:12 - Orders/Labs/Meds Orders: Active Orders 24 hr Category Date Time Status EKG 12 Lead [EKG Documentation Completion] [RC] STAT Care 12/10/20 09:01 Active Peripheral IV Care [RC] . DIRECTED Care 12/10/20 09:01 Active RT Aerosol Therapy [RC] ASDIRECTED Care 12/10/20 09:02 Active CBC WITH AUTO DIFF [HEME] Stat Lab 12/10/20 09:08 Results CULTURE BLOOD [BC] Stat Lab 12/10/20 09:08 Received CULTURE BLOOD [BC] Stat Lab 12/10/20 09:27 Received DIGOXIN [CHEM] Stat Lab 12/10/20 09:08 Received MANUAL DIFFERENTIAL QA/NC [HEME] Stat Lab 12/10/20 09:08 Results Levofloxacin/Dextrose 5%-Water [Levaquin in D5W 500 MG/ Med 12/10/20 10:17 Ordered 100 ML] 500 mg Premix Bag 1 bag IV ONETIME Magnesium Sulfate/Water [Magnesium Sulfate in Water 2 Med 12/10/20 10:18 Ordered GM/50 ML] 2 gm Premix Bag 1 bag IV ONETIME Sodium Chloride 0.9% [Saline Flush] Med 12/10/20 09:01 Active 10 ml FLUSH ASDIRECTED PRN Blood Culture x2 Reflex Set [OM.PC] Stat Oth 12/10/20 09:00 Ordered Peripheral IV Insertion Adult [OM.PC] Stat Oth 12/10/20 09:01 Ordered Medication Orders Levofloxacin/Dextrose 500 mg/ (Premix) 100 mls @ 100 mls/hr IV ONETIME ONE Stop: 12/10/20 11:16 Last Admin: 12/10/20 10:30 Dose: 100 mls/hr Documented by: Magnesium Sulfate 2 gm/ Premix 50 mls @ 25 mls/hr IV ONETIME ONE Stop: 12/10/20 12:17 Sodium Chloride (Sodium Chloride 0.9% 10 Ml Syringe) 10 ml FLUSH ASDIRECTED PRN PRN Reason: Keep Vein Open Last Admin: 12/10/20 09:44 Dose: 10 ml Documented by: ANTOINE Labs: Laboratory Tests 12/10/20 12/10/20 12/10/20 Range/Units 09:08 09:08 09:08 WBC 20.3 H (5.0-10.0) 10^3/uL RBC 6.17 (4.6-6.2) 10^6/uL Hgb 16.5 (14.0-18.0) g/dL Hct 54.8 H (40.0-54.0) % MCV 88.8 D (80-100) fL MCH 26.7 L (27.0-34.0) pg MCHC 30.1 L (33.0-35.0) g/dL Plt Count 258 (150-450) 10^3/uL Neut % (Auto) 89.2 H (42.2-75.2) % Lymph % (Auto) 4.1 L (20.5-50.1) % Cherry % (Auto) 4.7 (2-8) % Eos % (Auto) 1.6 (1.0-3.0) % Baso % (Auto) 0.4 (0.0-1.0) % Add Manual Diff Yes PT 12.2 H (9.0-12.0) SEC INR 1.2 (0.9-1.2) APTT 29.9 (22.0-34.0) SEC ABG pH (7.35-7.45) ABG pCO2 (35-45) mmHg ABG pO2 (70-100) mmHg ABG HCO3 (22-26) mmol/L ABG O2 Saturation (95-100) % ABG Base Excess ((-2)-(+3)) mmol/L Honorio Test O2 Delivery Device Oxygen Flow Rate Sodium 139 (136-145) mmol/L Potassium 3.9 (3.5-5.1) mmol/L Chloride 97 L (98-107) mmol/L Carbon Dioxide 41 H (21-32) mmol/L Anion Gap 4.9 L (7-13) mEq/L BUN 28 H (7-18) mg/dL Creatinine 1.17 (0.70-1.30) mg/dL Est Cr Clr Drug Dosing 53.73 mL/min Estimated GFR (MDRD) > 60 BUN/Creatinine Ratio 23.9 (No establ ref range) Glucose 328 H (70-99) mg/dL Lactic Acid (0.4-2.0) mmol/L Calcium 8.5 (8.5-10.1) mg/dL Magnesium 1.4 L (1.8-2.4) mg/dL Total Bilirubin 1.0 (0.2-1.0) mg/dL AST 11 L (15-37) U/L ALT 29 (16-63) U/L Alkaline Phosphatase 115 (46-116) U/L Troponin I High Sens 18 (<=76) pg/mL B-Natriuretic Peptide 68 (0-100) pg/ml Total Protein 6.4 (6.4-8.2) g/dL Albumin 3.4 (3.4-5.0) g/dL Globulin 3.0 Albumin/Globulin Ratio 1.1 Influenza Type A RNA (NEGATIVE) Influenza Type B RNA (NEGATIVE) SARS-CoV-2 RNA (SHAHRZAD) (NEGATIVE) 12/10/20 12/10/20 12/10/20 Range/Units 09:08 09:20 09:25 WBC (5.0-10.0) 10^3/uL RBC (4.6-6.2) 10^6/uL Hgb (14.0-18.0) g/dL Hct (40.0-54.0) % MCV (80-100) fL MCH (27.0-34.0) pg MCHC (33.0-35.0) g/dL Plt Count (150-450) 10^3/uL Neut % (Auto) (42.2-75.2) % Lymph % (Auto) (20.5-50.1) % Cherry % (Auto) (2-8) % Eos % (Auto) (1.0-3.0) % Baso % (Auto) (0.0-1.0) % Add Manual Diff PT (9.0-12.0) SEC INR (0.9-1.2) APTT (22.0-34.0) SEC ABG pH 7.36 (7.35-7.45) ABG pCO2 74 H* (35-45) mmHg ABG pO2 69 L (70-100) mmHg ABG HCO3 40.7 H (22-26) mmol/L ABG O2 Saturation 93 L (95-100) % ABG Base Excess 11 H ((-2)-(+3)) mmol/L Honorio Test pos O2 Delivery Device Nasal cannula Oxygen Flow Rate 4 Sodium (136-145) mmol/L Potassium (3.5-5.1) mmol/L Chloride (98-107) mmol/L Carbon Dioxide (21-32) mmol/L Anion Gap (7-13) mEq/L BUN (7-18) mg/dL Creatinine (0.70-1.30) mg/dL Est Cr Clr Drug Dosing mL/min Estimated GFR (MDRD) BUN/Creatinine Ratio (No establ ref range) Glucose (70-99) mg/dL Lactic Acid 1.4 (0.4-2.0) mmol/L Calcium (8.5-10.1) mg/dL Magnesium (1.8-2.4) mg/dL Total Bilirubin (0.2-1.0) mg/dL AST (15-37) U/L ALT (16-63) U/L Alkaline Phosphatase (46-116) U/L Troponin I High Sens (<=76) pg/mL B-Natriuretic Peptide (0-100) pg/ml Total Protein (6.4-8.2) g/dL Albumin (3.4-5.0) g/dL Globulin Albumin/Globulin Ratio Influenza Type A RNA Negative (NEGATIVE) Influenza Type B RNA Negative (NEGATIVE) SARS-CoV-2 RNA (SHAHRZAD) Negative (NEGATIVE) Meds: Medications Generic Name Dose Route Start Last Admin Trade Name Freq PRN Reason Stop Dose Admin Levofloxacin/Dextrose 500 mg/ 100 mls @ 100 mls/hr 12/10/20 10:17 12/10/20 10:30 Premix IV 12/10/20 11:16 100 mls/hr ONETIME ONE Administration Magnesium Sulfate 2 gm/ Premix 50 mls @ 25 mls/hr 12/10/20 10:18 IV 12/10/20 12:17 ONETIME ONE Sodium Chloride 10 ml 12/10/20 09:01 12/10/20 10:30 Sodium Chloride 0.9% 10 Ml Syringe FLUSH 10 ml ASDIRECTED PRN Administration Keep Vein Open Discontinued Medications Generic Name Dose Route Start Last Admin Trade Name Freq PRN Reason Stop Dose Admin Albuterol/Ipratropium 3 ml 12/10/20 09:02 12/10/20 09:44 Albuterol/Ipratropium 3.0-0.5 Mg/3 Ml Neb Soln NEB 12/10/20 09:03 3 ml ONETIME ONE Administration Furosemide 60 mg 12/10/20 09:02 12/10/20 09:44 Furosemide 100 Mg/10 Ml Sdv IVPUSH 12/10/20 09:03 60 mg ONETIME ONE Administration Methylprednisolone Sodium Succinate 125 mg 12/10/20 09:02 12/10/20 09:44 Methylprednisolone Sodium Succinate 125 Mg/2 Ml Sdv IVPUSH 12/10/20 09:03 125 mg ONETIME ONE Administration - Radiology Interpretation Free Text/Narrative:: XR Chest: Mild central vascular elias. w/questionable minimal pulmonary edema. B/L linear atelectasis or scar per Rad. report. - Re-Assessments/Exams Free Text/Narrative Re-Assessment/Exam: 12/10/20 10:40 [facility] consulted, and authorizes pt to be admitted to . Departure - Departure Time of Disposition: 10:30 (admitted to Dr. Molina) Disposition: Admitted As Inpatient 68 Condition: Fair Clinical Impression: Acute exacerbation of chronic obstructive pulmonary disease (COPD), Peripheral edema Congestive heart failure Qualifiers: Heart failure type: unspecified Heart failure chronicity: chronic Qualified Code(s): I50.9 - Heart failure, unspecified - Discharge Information *PRESCRIPTION DRUG MONITORING PROGRAM REVIEWED*: Not Applicable *COPY OF PRESCRIPTION DRUG MONITORING REPORT IN PATIENT ANNELISE: Not Applicable Forms: ED Department Discharge Sepsis Event Note (ED) - Focused Exam Vital Signs: Vital Signs Temp Pulse Resp BP Pulse Ox 12/10/20 09:59 92 12/10/20 09:12 97.5 F 79 34 H 117/95 H 84 L - My Orders Last 24 Hours: My Active Orders 12/10/20 09:00 Blood Culture x2 Reflex Set [OM.PC] Stat 12/10/20 09:01 EKG 12 Lead [EKG Documentation Completion] [RC] STAT Peripheral IV Care [RC] . DIRECTED Sodium Chloride 0.9% [Saline Flush] 10 ml FLUSH ASDIRECTED PRN Peripheral IV Insertion Adult [OM.PC] Stat 12/10/20 09:02 RT Aerosol Therapy [RC] ASDIRECTED 12/10/20 09:08 CBC WITH AUTO DIFF [HEME] Stat CULTURE BLOOD [BC] Stat DIGOXIN [CHEM] Stat MANUAL DIFFERENTIAL QA/NC [HEME] Stat 12/10/20 09:27 CULTURE BLOOD [BC] Stat 12/10/20 10:17 Levofloxacin/Dextrose 5%-Water [Levaquin in D5W 500 MG/100 ML] 500 mg Premix Bag 1 bag IV ONETIME 12/10/20 10:18 Magnesium Sulfate/Water [Magnesium Sulfate in Water 2 GM/50 ML] 2 gm Premix Bag 1 bag IV ONETIME - Assessment/Plan Last 24 Hours: My Active Orders 12/10/20 09:00 Blood Culture x2 Reflex Set [OM.PC] Stat 12/10/20 09:01 EKG 12 Lead [EKG Documentation Completion] [RC] STAT Peripheral IV Care [RC] . DIRECTED Sodium Chloride 0.9% [Saline Flush] 10 ml FLUSH ASDIRECTED PRN Peripheral IV Insertion Adult [OM.PC] Stat 12/10/20 09:02 RT Aerosol Therapy [RC] ASDIRECTED 12/10/20 09:08 CBC WITH AUTO DIFF [HEME] Stat CULTURE BLOOD [BC] Stat DIGOXIN [CHEM] Stat MANUAL DIFFERENTIAL QA/NC [HEME] Stat 12/10/20 09:27 CULTURE BLOOD [BC] Stat 12/10/20 10:17 Levofloxacin/Dextrose 5%-Water [Levaquin in D5W 500 MG/100 ML] 500 mg Premix B ag 1 bag IV ONETIME 12/10/20 10:18 Magnesium Sulfate/Water [Magnesium Sulfate in Water 2 GM/50 ML] 2 gm Premix Bag 1 bag IV ONETIME
[2020-12-10] MEDS ORDERED: methylPREDNISolone Sodium Succinate 125 MG/2 ML SDV IVPUSH ONE (09:02)
[2020-12-10] MEDS ORDERED: Furosemide 100 MG/10 ML SDV IVPUSH ONE (09:02)
[2020-12-10] MEDS ORDERED: Albuterol/Ipratropium 3.0-0.5 MG/3 ML Neb Soln NEB ONE (09:02)
[2020-12-10 09:35] LABS: BASE EXCESS ARTERIAL 11 mmol/L ((-2)-(+3)); BICARBONATE,ARTERIAL 40.7 mmol/L (22-26); O2 DELIVERY DEVICE NASAL CANNULA; O2 SATURATION ARTERIAL 93 % (95-100); PO2 ARTERIAL 69 mmHg (70-100)
[2020-12-10 09:40] LABS: ALLEN TEST pos; O2 FLOW RATE 4; PCO2 ARTERIAL 74 mmHg (35-45)
[2020-12-10] MEDS: Sodium Chloride 0.9% 10 ML Syringe FLUSH PRN ×3 (09:44→22:50)
[2020-12-10 09:58] LABS: ANION GAP 4.9 mEq/L (7-13); CHLORIDE,CL 97 mmol/L (98-107); SODIUM,NA 139 mmol/L (136-145)
[2020-12-10 10:07] LABS: PTT,PARTIAL THROMBOPLSTIN TIME 29.9 SEC (22.0-34.0)
[2020-12-10 10:13] LABS: CORONAVIRUS COVID-19 NAA NEGATIVE (NEGATIVE)
[2020-12-10] MEDS ORDERED: Levofloxacin/Dextrose 5%-Water 500 MG in Premix Bag 1 BAG IV ONE (10:17)
[2020-12-10] MEDS ORDERED: Magnesium Sulfate/Water 2 GM in Premix Bag 1 BAG IV ONE ×2 (10:18→13:00)
--- NOTE | 2020-12-10 10:24 | CR ---
PROCEDURE INFORMATION: Exam: XR Chest Exam date and time: 12/10/2020 9:44 AM Age: 80 years old Clinical indication: Shortness of breath; Additional info: Short of breath, HX copd chf TECHNIQUE: Imaging protocol: XR of the chest. Views: 1 view. COMPARISON: 1. CR Chest 1V Frontal 11/27/2020 8:[address] Abdomen Pelvis w Cont 11/27/2020 8:51:48 AM FINDINGS: Lungs: The patient's chin obscures portions of the lung apices particularly on the right. There is bibasilar linear atelectasis or scar. Minimal interstitial prominence in the mid and lower lungs, right greater than left again seen, question minimal pulmonary edema. Mild central vascular congestion. Pleural spaces: Unremarkable. No pleural effusion. No pneumothorax. Heart/Mediastinum: Heart size is normal. Aorta is slightly tortuous. Bones/joints: Unremarkable. IMPRESSION: 1. Mild central vascular congestion with questionable minimal pulmonary edema. 2. Bibasilar linear atelectasis or scar.
[2020-12-10] MEDS ORDERED: Ondansetron 4 MG/2 ML SDV IVPUSH PRN (11:17)
[2020-12-10] MEDS ORDERED: Acetaminophen 325 MG Tab PO PRN (11:17)
[2020-12-10] MEDS ORDERED: Magnesium Sulfate/Water 4 GM in Premix Bag 1 BAG IV ONE (11:19)
[2020-12-10] MEDS ORDERED: 50% Dextrose in Water 50 ML Syringe IVPUSH PRN ×2 (11:21→20:27)
[2020-12-10] MEDS ORDERED: Glucagon,Human Recombinant 1 MG Vial IM PRN (11:21)
--- NOTE | 2020-12-10 11:27 | PCM.SN.2 ---
- Free Text/Narrative Note: START OF DOCTOR EMAMIS HISTORY AND PHYSICAL / CONSULTATION NOTE Chief Complaint: Shortness of breath History of Present Illness: Patient is a 72-year-old male who presents with complaint of dyspnea. Patient has no history of CHF and O2 dependent COPD for which he uses 3 L of supplemental oxygen at home. He indicates that dyspnea started proximally 48 hours prior to hospitalization and it was of sudden onset. Patient has new onset of cough which is nonproductive as well as abdominal distention. He carmelo es fever, rigors, nausea, vomiting, wheeze, diarrhea, myalgia, chest pain, anosmia, dysgeusia. He indicates that he has bipedal edema however this is chronic and not worse than usual. He indicates that he had to increase his oxygen flow rate to 4 L/min at home. He presents for further evaluation Surgical History: Left elbow, umbilical herniorrhaphy, bilateral cataract surgery, cardiac stent placement, bilateral carpal tunnel surgery, bilateral knee surgery Family History: Diabetes, coronary artery disease, hypertension Social History: Tobacco: Former smoker Alcohol: Denies Caffeine: Coffee Drugs: Never Allergies: Patient has documented allergy to codeine however upon clarification this causes nausea and thus does not represent a true allergy. No known drug allergies Code Status: Full Pertinent Laboratory Results / Pertinent Radiology Results / Pertinent Diagnostic Results / Pertinent Vital Signs: Blood pressure 117/95, pulse 89, respirations 34, temperature 90.5 degrees, 84% 4 L, magnesium 1.4, white blood cell count 20.3 Physical Examination: General: -Alert -No acute distress -No dyspnea -No tachypnea at time of examination -Obese Head: -Atraumatic -Normocephalic Eyes: -Pupils equally round and reactive to light and accommodation -Extraocular muscles intact Neurological: -Cranial nerves II-XII intact Neck: -No jugular venous distention -No thyromegaly -No cervical lymphadenopathy Heart: -Regular rate -iRegular rhythm -No murmurs -No gallops -No rubs Lungs: -Bilateral wheeze -No rhonchi -No rales -Distant breath sounds bilaterally Abdomen: -Normal bowel sounds in all four quadrants -No rebound -No guarding -No tenderness -Distention present Extremities: -2/4 pulse in all four extremities -No clubbing -No cyanosis -4+ bipedal pitting edema -No calf tenderness present bilaterally -Negative Homans sign bilaterally Musculoskeletal: -5/5 bilateral upper extremity strength -5/5 bilateral lower extremity strength -Sensorium of bilateral upper extremities are equal and intact -Sensorium of bilateral lower extremities are equal and intact Additional Details / Additional Findings / Exceptions / Miscellaneous: Assessment / Plan: Dyspnea secondary to CHF exacerbation and COPD exacerbation CHF exacerbation. Strict I's/O. Daily weight. Lasix 40 mg IV every 8 hours COPD, O2 dependent 3 L. Solu-Medrol 60 mg IV every 8 hours plus DuoNeb every 4 hours plus doxycycline 100 mg p.o. twice daily Seasonal allergies Atrial fibrillation History of polycythemia vera Hypomagnesemia. Will monitor magnesium levels intermittently and supplement as necessary Leukocytosis, chronic at approximately 20,000. Will monitor white blood cell count intermittently Obstructive sleep apnea. CPAP/BiPAP: Okay to use home device and/or pressure when sleeping if the patient uses CPAP/BiPAP at home History of vitamin D D deficiency History of left renal cell carcinoma, status post cryotherapy. Outpatient follow-up with hematology/oncology upon discharge Polymyalgia rheumatica Degenerative disc disease Coronary artery disease, status post [place], status post [place] Diabetes. Will check fingerstick glucose before every meal and at bedtime and provide sulci scale GERD. Protonix 40 mg p.o. daily Hyperlipidemia Hypertension. Lasix 20 mg IV every 8 hours Obesity. Patient becomes regarding lifestyle modification Degenerative joint disease DVT prophylaxis. Bilateral CD Disposition: Anticipate discharge within 48 hours. At the time of admission, the patient's home medications were pending input to the EMR/DHR system. Once their input, they will be reviewed and reconciled END OF DOCTOR EMAMIS HISTORY AND PHYSICAL / CONSULTATION NOTE
[2020-12-10] MEDS: Insulin Lispro 100 Units/ML 3 ML Vial SUBCUT SCH ×3 (12:04→23:35)
[2020-12-10] MEDS ORDERED: [UNRECOGNIZED DRUG - OTHER] BC PRN (12:10)
[2020-12-10] MEDS ORDERED: Hydroxyurea 500 MG Cap PO SCH (12:15)
[2020-12-10] MEDS: methylPREDNISolone Sodium Succinate 40 MG/1 ML SDV IVPUSH SCH ×2 (14:00→22:51)
[2020-12-10] MEDS: Furosemide 20 MG/2 ML VIAL IVPUSH SCH ×2 (14:01→22:54)
[2020-12-10] MEDS ORDERED: Loratadine 10 MG Tab PO PRN (14:12)
[2020-12-10] MEDS: Albuterol/Ipratropium 3.0-0.5 MG/3 ML Neb Soln NEB SCH ×3 (15:55→22:58)
[2020-12-10] MEDS ORDERED: Insulin Lispro 100 Units/ML 3 ML Vial SUBCUT ONE ×4 (16:45→23:22)
[2020-12-10] MEDS: Metoprolol Tartrate 50 MG Tab PO SCH (21:08)
[2020-12-10] MEDS: Rosuvastatin 10 MG Tab PO SCH (21:09)
[2020-12-10] MEDS: Apixaban 5 MG Tab PO SCH (21:09)
[2020-12-10] MEDS: Doxycycline Monohydrate 100 MG Cap PO SCH (21:09)
[2020-12-11] MEDS: Albuterol/Ipratropium 3.0-0.5 MG/3 ML Neb Soln NEB SCH ×6 (03:21→22:31)
[2020-12-11] MEDS: Pantoprazole 40 MG Tab.CR PO SCH (05:42)
[2020-12-11] MEDS: Sodium Chloride 0.9% 10 ML Syringe FLUSH PRN ×2 (05:44→22:24)
[2020-12-11] MEDS: methylPREDNISolone Sodium Succinate 40 MG/1 ML SDV IVPUSH SCH ×3 (05:44→22:24)
[2020-12-11] MEDS: Furosemide 20 MG/2 ML VIAL IVPUSH SCH ×3 (05:48→22:28)
[2020-12-11 06:40] LABS: ANION GAP 4.8 mEq/L (7-13); CHLORIDE,CL 99 mmol/L (98-107); SODIUM,NA 142 mmol/L (136-145)
--- NOTE | 2020-12-11 07:14 | PCM.SN.2 ---
- Free Text/Narrative Note: START OF DOCTOR BRYSONMIS PROGRESS NOTE Subjective: The patient currently rates his respiratory status as a 5 out of 10 of 10 is his baseline. Overnight he denies fever, rigors, nausea, vomiting, wheeze, abdominal pain, chest pain. The patient admits to cough which is nonproductive. He indicates that he has been urinating an adequate amount. I explained to the patient his current medical condition and plan of care and I have answered all of his questions Objective: General: -Alert -No acute distress -No dyspnea -No tachypnea -Obese Heart: -Regular rate -iRegular rhythm -No murmurs -No gallops -No rubs Lungs: -No wheeze -No rhonchi -No rales -Distant breath sounds bilaterally Abdomen: -Normal bowel sounds in all four quadrants -No rebound -No guarding -No tenderness Extremities: -2/4 pulse in all four extremities -No clubbing -No cyanosis -3+ bipedal pitting edema Additional Details / Additional Findings / Exceptions / Miscellaneous: Pertinent Laboratory Results / Pertinent Radiology Results / Pertinent Diagnostic Results / Pertinent Vital Signs: Patient saturating 91% on 4 L Assessment / Plan: Dyspnea secondary to CHF exacerbation and COPD exacerbation CHF exacerbation. Strict I's/O. Daily weight. Lasix 40 mg IV every 8 hours COPD, O2 dependent 3 L. Solu-Medrol 60 mg IV every 8 hours plus DuoNeb every 4 hours plus doxycycline 100 mg p.o. twice daily Seasonal allergies Atrial fibrillation. Eliquis 5 mg p.o. twice daily plus digoxin 125 mcg p.o. daily plus [place]ort XR 240 mg p.o. daily plus metoprolol 100 mg p.o. twice daily History of polycythemia vera. Hydroxyurea 500 mg p.o. q. Thursday, Thursday, and Thursday Hypomagnesemia. Will monitor magnesium levels intermittently and supplement as necessary Leukocytosis, chronic at approximately 20,000. Will monitor white blood cell count intermittently. Hydroxyurea 500 mg p.o. q. Thursday, Thursday, and Thursday Obstructive sleep apnea. CPAP/BiPAP: Okay to use home device and/or pressure when sleeping if the patient uses CPAP/BiPAP at home History of vitamin D D deficiency History of left renal cell carcinoma, status post cryotherapy. Outpatient follow-up with hematology/oncology upon discharge Polymyalgia rheumatica Degenerative disc disease Coronary artery disease, status post PR, status post [place]. Plavix 75 mg p.o. daily plus Crestor 5 mg p.o. nightly plus metoprolol 100 mg p.o. twice daily Diabetes. Will check fingerstick glucose before every meal and at bedtime and provide sulci scale GERD. Protonix 40 mg p.o. daily Hyperlipidemia. Crestor 5 mg p.o. nightly Hypertension. Lasix 20 mg IV every 8 hours plus Delacort XR 240 mg p.o. daily plus metoprolol 100 mg p.o. twice daily Obesity. Patient becomes regarding lifestyle modification Degenerative joint disease DVT prophylaxis. Eliquis 5 mg p.o. twice daily Disposition: The patient may potentially be a candidate for discharge on this day of December 11, 2020 END OF DOCTOR HEATON PROGRESS NOTE
[2020-12-11] MEDS: Apixaban 5 MG Tab PO SCH ×2 (08:12→20:49)
[2020-12-11] MEDS: Doxycycline Monohydrate 100 MG Cap PO SCH ×2 (08:12→20:50)
[2020-12-11] MEDS: Clopidogrel 75 MG Tab PO SCH (08:12)
[2020-12-11] MEDS: Digoxin 125 MCG Tab PO SCH (08:12)
[2020-12-11] MEDS: Metoprolol Tartrate 50 MG Tab PO SCH ×2 (08:13→20:50)
[2020-12-11] MEDS: Diltiazem 240 MG Cap.ER PO SCH (08:14)
[2020-12-11] MEDS: Insulin Lispro 100 Units/ML 3 ML Vial SUBCUT SCH ×4 (08:40→20:52)
[2020-12-11] MEDS ORDERED: Iopamidol 755 Mg/ML 100 ML Bottle IVPUSH ONE (19:31)
[2020-12-11] MEDS: Rosuvastatin 10 MG Tab PO SCH (20:50)
--- NOTE | 2020-12-11 23:02 | CT ---
PROCEDURE INFORMATION: Exam: CTA Angiogram of the Abdominal Aorta and Bilateral Lower Extremities (Run-off) With IV Contrast Exam date and time: 12/11/2020 7:36 PM Age: 80 years old Clinical indication: Other: Purpura of digits. Rule out ischemia; Patient HX: HX kidney and blood CA TECHNIQUE: Imaging protocol: CT angiogram of the abdominal aorta, pelvis and bilateral lower extremities with IV iodinated contrast. Radiation optimization: All CT scans at this facility use at least one of these dose optimization techniques: automated exposure control; mA and/or kV adjustment per patient size (includes targeted exams where dose is matched to clinical indication); or iterative reconstruction. Contrast material: ISOVUE 370; Contrast volume: 100 ml; Contrast route: INTRAVENOUS (IV); COMPARISON: CT Abdomen Pelvis w Cont 11/27/2020 8:51 AM FINDINGS: Aorta: Mild diffuse atherosclerosis in the aorta and its branches. No aneurysmal dilatation. Celiac trunk and mesenteric arteries: The celiac artery is patent. The proximal splenic artery is patent. Motion limits exam of distal splenic artery. Common hepatic artery appears patent, but again motion limits exam. SMA is patent. JENIFFER is patent. Renal arteries: Bilateral renal arteries are patent. Right iliac arteries: No occlusion or significant stenosis. Right femoral/popliteal arteries: Bilateral knee hardware obscures evaluation at the level of the popliteal arteries. Diffuse atherosclerosis, but no hemodynamically the significant narrowing. Right infrapopliteal arteries: Right runoff vessels demonstrate diffuse atherosclerosis. Right peroneal artery appears to be patent throughout its course. Right posterior tibial artery appears patent. Anterior tibial artery is mostly occluded on the right. Reconstitution of the right dorsalis pedis. Left iliac arteries: No occlusion or significant stenosis. Left femoral/popliteal arteries: Bilateral knee hardware obscures evaluation at the level of the popliteal arteries. Diffuse atherosclerosis, but no hemodynamically the significant narrowing. Left infrapopliteal arteries: Left runoff vessels demonstrate diffuse atherosclerosis. Left peroneal artery appears to be patent throughout its course. Left posterior tibial artery appears patent. Anterior tibial artery is mostly occluded on the left. Reconstitution of the left dorsalis pedis. Other arteries: Coronary artery calcifications. Lungs: Mild bilateral atelectasis. Liver: No mass. Gallbladder and bile ducts: Unremarkable. No calcified stones. No ductal dilation. Pancreas: Unremarkable. No mass. No ductal dilation. Spleen: Normal. No splenomegaly. Adrenals: Normal. No mass. Kidneys and ureters: Soft tissue and stranding related to the superior pole the right kidney is similar to prior. This could represent post treatment changes. Recommend clinical correlation. Stomach and bowel: Unremarkable. No obstruction. No mucosal thickening. Appendix: No evidence of appendicitis. Bladder: Bladder wall appears thickened, but this is likely mostly due to under distention. Recommend clinical correlation for possible cystitis. Reproductive: Unremarkable as visualized. Intraperitoneal space: Unremarkable. No free air. No significant fluid collection. Lymph nodes: Mildly prominent iliac chain and retroperitoneal lymph nodes. Soft tissues: Diffuse bilateral subcutaneous edema in the legs, ankles, and feet. Other findings: Breathing artifact limits exam of intra-abdominal contents. IMPRESSION: Diffuse atherosclerosis. Inflow and outflow demonstrate no hemodynamically significant narrowing. Bilateral runoff disease noted including occlusions of the bilateral anterior tibial arteries.
[2020-12-12] MEDS: Albuterol/Ipratropium 3.0-0.5 MG/3 ML Neb Soln NEB SCH ×6 (03:07→22:58)
[2020-12-12] MEDS: Pantoprazole 40 MG Tab.CR PO SCH (05:46)
[2020-12-12] MEDS: Sodium Chloride 0.9% 10 ML Syringe FLUSH PRN ×2 (05:47→13:52)
[2020-12-12] MEDS: methylPREDNISolone Sodium Succinate 40 MG/1 ML SDV IVPUSH SCH ×3 (05:47→21:00)
[2020-12-12] MEDS: Furosemide 20 MG/2 ML VIAL IVPUSH SCH ×3 (05:51→21:00)
[2020-12-12 07:06] LABS: ANION GAP 13.1 mEq/L (7-13); CHLORIDE,CL 95 mmol/L (98-107); SODIUM,NA 143 mmol/L (136-145)
--- NOTE | 2020-12-12 07:16 | PCM.SN.2 ---
- Free Text/Narrative Note: START OF DOCTOR SUDARSHAN PROGRESS NOTE Subjective: The patient currently rates his respiratory status as a 6 out of 10 if 10 is his baseline. Overnight the patient denies fever, rigors, nausea, vomiting, cough, wheeze, abdominal pain, chest pain. I explained to the patient his current medical condition and plan of care and I have answered all his questions Objective: General: -Alert -No acute distress -No dyspnea -No tachypnea -Obese Heart: -Regular rate -iRegular rhythm -No murmurs -No gallops -No rubs Lungs: -No wheeze -No rhonchi -No rales -Distant breath sounds bilaterally Abdomen: -Normal bowel sounds in all four quadrants -No rebound -No guarding -No tenderness Extremities: -2/4 pulse in all four extremities -No clubbing -No cyanosis - 2+ bipedal pitting edema Additional Details / Additional Findings / Exceptions / Miscellaneous: There are: Some petechiae present forming purpura from bilateral toes to mid leg which appear to be consistent with possible vasculitis Pertinent Laboratory Results / Pertinent Radiology Results / Pertinent Diagnostic Results / Pertinent Vital Signs: Patient saturating 88% on 5 L. Morning labs pending Assessment / Plan: Dyspnea secondary to CHF exacerbation and COPD exacerbation Query vasculitis versus peripheral vascular disease. Doxycycline 100 mg p.o. every [address] aortogram with runoff provides mixed results for which I will consult with vascular surgery CHF exacerbation. Strict I's/O. Daily weight. Lasix 40 mg IV every 8 hours COPD, O2 dependent 3 L. Solu-Medrol 60 mg IV every 8 hours plus DuoNeb every 4 hours Seasonal allergies Atrial fibrillation. Eliquis 5 mg p.o. twice daily plus digoxin 125 mcg p.o. daily plus Delacort XR 240 mg p.o. daily plus metoprolol 100 mg p.o. twice daily History of polycythemia vera. Hydroxyurea 500 mg p.o. q. Thursday, Thursday, and Thursday Hypomagnesemia. Will monitor magnesium levels intermittently and supplement as necessary Leukocytosis, chronic at approximately 20,000. Will monitor white blood cell count intermittently. Hydroxyurea 500 mg p.o. q. Thursday, Thursday, and Thursday Obstructive sleep apnea. CPAP/BiPAP: Okay to use home device and/or pressure when sleeping if the patient uses CPAP/BiPAP at home History of vitamin D D deficiency History of left renal cell carcinoma, status post cryotherapy. Outpatient follow-up with hematology/oncology upon discharge Polymyalgia rheumatica Degenerative disc disease Coronary artery disease, status post [place], status post [place]. Plavix 75 mg p.o. daily plus Crestor 5 mg p.o. nightly plus metoprolol 100 mg p.o. twice daily Diabetes. Will check fingerstick glucose before every meal and at bedtime and provide sulci scale GERD. Protonix 40 mg p.o. daily Hyperlipidemia. Crestor 5 mg p.o. nightly Hypertension. Lasix 20 mg IV every 8 hours plus Delacort XR 240 mg p.o. daily plus metoprolol 100 mg p.o. twice daily Obesity. Patient becomes regarding lifestyle modification Degenerative joint disease DVT prophylaxis. Eliquis 5 mg p.o. twice daily Disposition: Depending on recommendations provided by vascular surgery and based on patient's tolerance of 6-minute walk test, he may be a candidate for discharge on this day of December 12, 2020 END OF DOCTOR HEATON PROGRESS NOTE
[2020-12-12] MEDS: Digoxin 125 MCG Tab PO SCH (08:54)
[2020-12-12] MEDS: Clopidogrel 75 MG Tab PO SCH (08:54)
[2020-12-12] MEDS: Diltiazem 240 MG Cap.ER PO SCH (08:54)
[2020-12-12] MEDS: Metoprolol Tartrate 50 MG Tab PO SCH ×2 (08:55→20:55)
[2020-12-12] MEDS: Apixaban 5 MG Tab PO SCH ×2 (08:55→20:55)
[2020-12-12] MEDS: Insulin Lispro 100 Units/ML 3 ML Vial SUBCUT SCH ×4 (08:55→20:55)
[2020-12-12] MEDS ORDERED: Insulin Lispro 100 Units/ML 3 ML Vial SUBCUT ONE ×3 (11:56→15:21)
--- NOTE | 2020-12-12 14:15 | PCM.SN.2 ---
- Free Text/Narrative Note: START OF DOCTOR EMAMIS DISCHARGE SUMMARY Date of Admission: December 10, 2020 Date of Discharge: 2:10 PM on December 12, 2020 Primary Diagnosis: Dyspnea secondary to CHF exacerbation and COPD exacerbation Secondary Diagnosis: CHF exacerbation COPD, O2 dependent at 4 L at rest and 6 L with activity Seasonal allergies Atrial fibrillation History of polycythemia vera Hypomagnesemia Leukocytosis, chronic at approximately 20,000 Obstructive sleep apnea History of vitamin D deficiency History of left renal cell carcinoma, status post cryotherapy Polymyalgia rheumatica Degenerative disc disease Coronary artery disease, status post [place], status post [place] Diabetes GERD Hyperlipidemia Hypertension Obesity Degenerative joint disease Consultations: None Condition on Discharge: Fair Disposition: The patient be advised to follow-up with his primary care physician or with a provider 5 to 7 days post discharge for posthospitalization evaluation The patient is advised follow-up with hematology/oncology as directed for his history of chronic leukocytosis, history of polycythemia vera, and his history of left renal cell carcinoma for which she is status post cryotherapy It is strongly recommended that the patient enroll in hospice The patient's new home oxygen settings are: 4 L via nasal cannula at rest and 6 L via nasal cannula with activity Discharge Medications: Senna plus: 2 tabs p.o. twice daily Hydroxyurea 500 mg p.o. q. Thursday, Thursday, and Thursday Ketotifen 0.025%: 1 drop in both eyes twice daily Eliquis 5 mg p.o. twice daily Zyrtec 10 mg p.o. daily Plavix 75 mg p.o. daily Digoxin 120 mcg p.o. daily Delacort XR 240 mg p.o. daily Triamcinolone acetonide 0.1% cream to be applied to affected area twice daily as needed unspecified reason Spiriva 18 mcg inhaled daily Prilosec 20 mg p.o. daily Nystatin cream to be applied to affected area twice daily Nitroglycerin 0.4 mg sublingually every 5 minutes as needed chest pain. He is to call 911 if there is no resolution of chest pain after the third dose Metformin 500 mg p.o. twice daily Magnesium oxide 420 mg p.o. daily Vitamin D3 800 IU p.o. daily Bumex 1 mg p.o. twice daily Budesonide 0.5 mg inhaled twice daily Brovana 7.5 mg inhaled twice daily DuoNeb every 4 hours as needed shortness of breath/wheeze Proventil HFA: 90 mcg/spray: 2 puffs every 6 hours as needed shortness breath/wheeze Crestor 5 mg p.o. nightly Nicotine lozenge 2 mg p.o. every 2 hours as needed symptoms Withdrawal Metoprolol 100 mg p.o. twice daily Prednisone 10 mg p.o. 5 tabs daily x3 days then 4 tabs daily x3 days then 3 tabs daily x3 days then 2 tabs daily x3 days then 1 tab daily indefinitely. Quantity sufficient for 1 month. 0 refills END OF DOCTOR EMAMIS DISCHARGE SUMMARY
[2020-12-12] MEDS: Rosuvastatin 10 MG Tab PO SCH (20:55)
[2020-12-13] MEDS: Albuterol/Ipratropium 3.0-0.5 MG/3 ML Neb Soln NEB SCH ×3 (03:25→13:30)
[2020-12-13] MEDS: Pantoprazole 40 MG Tab.CR PO SCH (06:22)
[2020-12-13] MEDS: Sodium Chloride 0.9% 10 ML Syringe FLUSH PRN (06:23)
[2020-12-13] MEDS: methylPREDNISolone Sodium Succinate 40 MG/1 ML SDV IVPUSH SCH ×2 (06:24→14:07)
[2020-12-13] MEDS: Furosemide 20 MG/2 ML VIAL IVPUSH SCH ×2 (06:28→14:07)
--- NOTE | 2020-12-13 07:13 | PCM.SN.2 ---
- Free Text/Narrative Note: START OF DOCTOR SUDARSHAN PROGRESS NOTE Subjective: The patient currently rates his respiratory status as a 5 out of 10 if 10 is his baseline. He endorses no complaints at this time. He denies fever, rigors, nausea, vomiting, cough, wheeze, abdominal pain, chest pain, or any other constitutional complaints. I explained to the patient his current medical condition and plan of care and I have answered all of his questions Objective: General: -Alert -No acute distress -No dyspnea -No tachypnea -Obese Heart: -Regular rate -iRegular rhythm -No murmurs -No gallops -No rubs Lungs: -No wheeze -No rhonchi -No rales -Distant breath sounds bilaterally Abdomen: -Normal bowel sounds in all four quadrants -No rebound -No guarding -No tenderness Extremities: -2/4 pulse in all four extremities -No clubbing -No cyanosis - 2+ bipedal pitting edema Additional Details / Additional Findings / Exceptions / Miscellaneous: There are: Some petechiae present forming purpura from bilateral toes to mid leg which appear to be consistent with possible vasculitis Pertinent Laboratory Results / Pertinent Radiology Results / Pertinent Diagnostic Results / Pertinent Vital Signs: Patient saturating 91% on 4 L. Morning labs pending Assessment / Plan: Dyspnea secondary to CHF exacerbation and COPD exacerbation Query vasculitis versus peripheral vascular disease. Doxycycline 100 mg p.o. every [address] aortogram with runoff provides mixed results for which I will consult with vascular surgery CHF exacerbation. Strict I's/O. Daily weight. Lasix 40 mg IV every 8 hours COPD, O2 dependent 3 L. Solu-Medrol 60 mg IV every 8 hours plus DuoNeb every 4 hours Seasonal allergies Atrial fibrillation. Eliquis 5 mg p.o. twice daily plus digoxin 125 mcg p.o. daily plus Delacort XR 240 mg p.o. daily plus metoprolol 100 mg p.o. twice daily History of polycythemia vera. Hydroxyurea 500 mg p.o. q. Thursday, Thursday, and Thursday Hypomagnesemia. Will monitor magnesium levels intermittently and supplement as necessary Leukocytosis, chronic at approximately 20,000. Will monitor white blood cell count intermittently. Hydroxyurea 500 mg p.o. q. Thursday, Thursday, and Thursday Obstructive sleep apnea. CPAP/BiPAP: Okay to use home device and/or pressure when sleeping if the patient uses CPAP/BiPAP at home History of vitamin D D deficiency History of left renal cell carcinoma, status post cryotherapy. Outpatient follow-up with hematology/oncology upon discharge Polymyalgia rheumatica Degenerative disc disease Coronary artery disease, status post [place], status post [place]. Plavix 75 mg p.o. daily plus Crestor 5 mg p.o. nightly plus metoprolol 100 mg p.o. twice daily Diabetes. Will check fingerstick glucose before every meal and at bedtime and provide sulci scale GERD. Protonix 40 mg p.o. daily Hyperlipidemia. Crestor 5 mg p.o. nightly Hypertension. Lasix 20 mg IV every 8 hours plus Delacort XR 240 mg p.o. daily plus metoprolol 100 mg p.o. twice daily Obesity. Patient becomes regarding lifestyle modification Degenerative joint disease DVT prophylaxis. Eliquis 5 mg p.o. twice daily Disposition: I will discussed the patient's case with case management/social work as I believe the current plan is to transition him to swing bed for rehabilitation END OF DOCTOR SUDARSHAN PROGRESS NOTE
[2020-12-13 07:18] LABS: ANION GAP 12.1 mEq/L (7-13)
[2020-12-13] MEDS: Apixaban 5 MG Tab PO SCH (08:32)
[2020-12-13] MEDS: Digoxin 125 MCG Tab PO SCH (08:33)
[2020-12-13] MEDS: Diltiazem 240 MG Cap.ER PO SCH (08:33)
[2020-12-13] MEDS: Metoprolol Tartrate 50 MG Tab PO SCH (08:33)
[2020-12-13] MEDS: Clopidogrel 75 MG Tab PO SCH (08:34)
[2020-12-13] MEDS: Insulin Lispro 100 Units/ML 3 ML Vial SUBCUT SCH ×2 (08:36→12:51)
--- NOTE | 2020-12-13 13:00 | PCM.SN.2 ---
- Free Text/Narrative Note: START OF DOCTOR EMAMIS DISCHARGE SUMMARY Date of Admission: December 10, 2020 Date of Discharge: 12:58 PM on December 13, 2020 Primary Diagnosis: Dyspnea secondary to CHF exacerbation and COPD exacerbation Secondary Diagnosis: CHF exacerbation COPD, formerly O2 dependent at 3 L Seasonal allergies Atrial fibrillation History of polycythemia vera Hypomagnesemia Leukocytosis, chronic at approximately 20,000 Obstructive sleep apnea History of vitamin D deficiency History of left renal cell carcinoma, status post cryotherapy for which patient require outpatient follow-up with hematology/oncology upon discharge Polymyalgia rheumatica Degenerative disc disease Coronary artery disease, status post [place], status post stent Diabetes GERD Hyperlipidemia Hypertension Obesity Degenerative joint disease Consultations: None Condition on Discharge: Fair Disposition: The patient will be transition to swing bed status for rehabilitation Discharge Medications: Tylenol 650 mg p.o. every 4 hours as needed mild pain DuoNeb every 4 hours Eliquis 5 mg p.o. twice daily Plavix 75 mg p.o. daily Digoxin 125 mg p.o. daily Delacort XR 240 mg p.o. daily Docusate/senna: 2 tabs p.o. twice daily as needed constipation Hydroxyurea 500 mg p.o. q. Thursday, Thursday, and Thursday Insulin lispro subcutaneously before every meal and at bedtime per sliding scale Claritin 10 mg p.o. daily as needed symptoms of seasonal allergies Metoprolol 100 mg p.o. twice daily Nicotine lozenge 2 mg p.o. every 2 hours as needed nicotine withdrawal Protonix 40 mg p.o. daily Crestor 5 mg p.o. nightly END OF DOCTOR EMAMIS DISCHARGE SUMMARY
[2020-12-13] MEDS: Non-Formulary Medication 1 Each (Ketotifen [Ketotifen 0.025% Ophth Soln] 5 ML Bottle) EYEBOTH SCH (14:08)
== END 2020-12-13 14:04 | disposition swing bed (61) | DRG 292 ==
LOC: DL.ED 08:50 → DL.MS 10:35
PROVIDERS: ADMIT Internal Medicine; ATTEND Internal Medicine
DX: I11.0 Hypertensive heart disease with heart failure (principal); J44.1 Chronic obstructive pulmonary disease with (acute) exacerbation; I50.9 Heart failure, unspecified; I48.91 Unspecified atrial fibrillation; E83.42 Hypomagnesemia; G47.30 Sleep apnea, unspecified; G47.33 Obstructive sleep apnea (adult) (pediatric); E55.9 Vitamin D deficiency, unspecified; K21.9 Gastro-esophageal reflux disease without esophagitis; I25.10 Atherosclerotic heart disease of native coronary artery without angina pectoris; Z20.822 Contact with and (suspected) exposure to COVID-19; M35.3 Polymyalgia rheumatica; D72.829 Elevated white blood cell count, unspecified; J30.2 Other seasonal allergic rhinitis; E66.9 Obesity, unspecified; E78.5 Hyperlipidemia, unspecified; E78.00 Pure hypercholesterolemia, unspecified; E11.9 Type 2 diabetes mellitus without complications; N28.9 Disorder of kidney and ureter, unspecified; D75.1 Secondary polycythemia; Z99.81 Dependence on supplemental oxygen; Z88.5 Allergy status to narcotic agent; Z79.899 Other long term (current) drug therapy; I25.2 Old myocardial infarction; Z79.52 Long term (current) use of systemic steroids; Z87.891 Personal history of nicotine dependence; Z95.5 Presence of coronary angioplasty implant and graft; Z98.41 Cataract extraction status, right eye; Z98.42 Cataract extraction status, left eye; Z28.82 Immunization not carried out because of caregiver refusal; Z85.53 Personal history of malignant neoplasm of renal pelvis; Z79.01 Long term (current) use of anticoagulants; Z79.02 Long term (current) use of antithrombotics/antiplatelets; Z79.51 Long term (current) use of inhaled steroids
CPT/HCPCS: 0240U; 36415; 36600; 71045; 75635; 80048; 80053; 80162; 82803; 82947; 83605; 83735; 83880; 84484; 85025; 85610; 85730; 87040; 93005; 93010; 94640; 96374; 96375; 99284; 99285-25; A9270-GY; J1815-GY; J1940; J1956; J2920; J2930; J3475; J7620-GY; Q9967

== ENCOUNTER 2020-12-13 11:51 | Inpatient (IN) | payer MEDICARE, OTHER ==
[2020-12-13] MEDS ORDERED: NICOTINE POLACRILEX 2 MG BUCCAL PRN (13:02)
[2020-12-13] MEDS ORDERED: Glucagon,Human Recombinant 1 MG Vial IM PRN ×2 (13:02)
[2020-12-13] MEDS ORDERED: Sodium Chloride 0.9% 10 ML Syringe FLUSH PRN ×2 (13:02)
[2020-12-13] MEDS ORDERED: Acetaminophen 325 MG Tab PO PRN (13:02)
[2020-12-13] MEDS ORDERED: 50% Dextrose in Water 50 ML Syringe IVPUSH PRN ×3 (13:02)
[2020-12-13] MEDS ORDERED: Ondansetron 4 MG/2 ML SDV IVPUSH PRN (13:02)
[2020-12-13] MEDS ORDERED: Loratadine 10 MG Tab PO PRN (13:02)
--- NOTE | 2020-12-13 13:11 | PCM.SN.2 ---
- Free Text/Narrative Note: START OF DOCTOR EMAMIS HISTORY AND PHYSICAL / CONSULTATION NOTE Chief Complaint: Admission to swing bed status for strengthening and conditioning History of Present Illness: The patient is a 80-year-old male who is being admitted to swing bed status for strengthening and conditioning following acute hospitalization from 12/10/2020 until 12/13/2020 for diagnosis of dyspnea secondary to CHF exacerbation and COPD exacerbation. At the present time the patient denies fever, rigors, nausea, vomiting, cough, wheeze, abdominal pain, chest pain, dyspnea at rest, or any other constitutional complaints. The patient presents for further evaluation. For further details of the patient's acute hospital stay from 12/10/2020 until 12/13/2020 see the paragrapg Below: Patient is a 72-year-old male who presents with complaint of dyspnea. Patient has no history of CHF and O2 dependent COPD for which he uses 3 L of supplem ental oxygen at home. He indicates that dyspnea started proximally 48 hours prior to hospitalization and it was of sudden onset. Patient has new onset of cough which is nonproductive as well as abdominal distention. He denies fever, rigors, nausea, vomiting, wheeze, diarrhea, myalgia, chest pain, anosmia, dysgeusia. He indicates that he has bipedal edema however this is chronic and not worse than usual. He indicates that he had to increase his oxygen flow rate to 4 L/min at home. He presents for further evaluation Surgical History: Left elbow, umbilical herniorrhaphy, bilateral cataract surgery, cardiac stent placement, bilateral carpal tunnel surgery, bilateral knee surgery Family History: Diabetes, coronary artery disease, hypertension Social History: Tobacco: Former smoker Alcohol: Denies Caffeine: Coffee Drugs: Never Allergies: Patient has documented allergy to codeine however upon clarification this causes nausea and thus does not represent a true allergy. No known drug allergies Code Status: Full Pertinent Laboratory Results / Pertinent Radiology Results / Pertinent Diagnostic Results / Pertinent Vital Signs: Vital signs upon being transitioned to swing bed status are pending input to the EMR/DHR system Physical Examination: General: -Alert -No acute distress -No dyspnea -No tachypnea -Obese Head: -Atraumatic -Normocephalic Eyes: -Pupils equally round and reactive to light and accommodation -Extraocular muscles intact Neurological: -Cranial nerves II-XII intact Neck: -No jugular venous distention -No thyromegaly -No cervical lymphadenopathy Heart: -Regular rate -iRegular rhythm -No murmurs -No gallops -No rubs Lungs: -Bilateral wheeze -No rhonchi -No rales -Distant breath sounds bilaterally Abdomen: -Normal bowel sounds in all four quadrants -No rebound -No guarding -No tenderness -Distention present Extremities: -2/4 pulse in all four extremities -No clubbing -No cyanosis - trace bipedal pitting edema -No calf tenderness present bilaterally -Negative Homans sign bilaterally Musculoskeletal: -5/5 bilateral upper extremity strength -5/5 bilateral lower extremity strength -Sensorium of bilateral upper extremities are equal and intact -Sensorium of bilateral lower extremities are equal and intact Additional Details / Additional Findings / Exceptions / Miscellaneous: Assessment / Plan: Dyspnea secondary to CHF exacerbation and COPD exacerbation CHF exacerbation. Strict I's/O. Daily weight. Lasix 20 mg p.o. twice daily plus K-Dur 20 [place] p.o. daily COPD, O2 dependent 3 L. Prednisone 40 mg p.o. daily plus DuoNeb every 4 hours Seasonal allergies Atrial fibrillation. Eliquis 5 mg p.o. twice daily plus digoxin 125 mcg p.o. daily plus Delacort XR 240 mg p.o. daily plus metoprolol 100 mg p.o. twice daily History of polycythemia vera. Hydroxyurea 500 mg p.o. q. Thursday, Thursday, and Thursday Hypomagnesemia. Will monitor magnesium levels intermittently and supplement as necessary Leukocytosis, chronic at approximately 20,000. Will monitor white blood cell count intermittently. Hydroxyurea 500 mg p.o. q. Thursday, Thursday, and Thursday Obstructive sleep apnea. CPAP/BiPAP: Okay to use home device and/or pressure when sleeping if the patient uses CPAP/BiPAP at home History of vitamin D D deficiency History of left renal cell carcinoma, status post cryotherapy. Outpatient follow-up with hematology/oncology upon discharge Polymyalgia rheumatica Degenerative disc disease Coronary artery disease, status post [place], status post [place]. Plavix 75 mg p.o. daily plus Crestor 5 mg p.o. nightly plus metoprolol 100 mg p.o. twice daily Diabetes. Will check fingerstick glucose before every meal and at bedtime and provide sulci scale GERD. Protonix 40 mg p.o. daily Hyperlipidemia. Crestor 5 mg p.o. nightly Hypertension. Lasix 20 mg p.o. twice daily plus K. Dur 20 [place] p.o. daily plus Delacort XR 240 mg p.o. daily plus metoprolol 100 mg p.o. twice daily Obesity. Patient becomes regarding lifestyle modification Degenerative joint disease DVT prophylaxis. Eliquis 5 mg p.o. twice daily Disposition: The patient will be a candidate for discharge once deemed appropriate by physical therapy and Occupational Therapy END OF DOCTOR EMAMIS HISTORY AND PHYSICAL / CONSULTATION NOTE
[2020-12-13] MEDS: Furosemide 20 MG Tab PO SCH (14:19)
[2020-12-13] MEDS ORDERED: Ondansetron 4 MG Tab.DIS PO PRN (14:51)
[2020-12-13] MEDS: Albuterol/Ipratropium 3.0-0.5 MG/3 ML Neb Soln NEB PRN ×2 (16:27→20:57)
[2020-12-13] MEDS: TIOTROPIUM BROMIDE 4 GM PO SCH (16:57)
[2020-12-13] MEDS: MIST INHAL PO SCH (16:57)
[2020-12-13] MEDS: Insulin Lispro 100 Units/ML 3 ML Vial SUBCUT SCH ×2 (17:17→21:06)
[2020-12-13] MEDS: Budesonide 0.5 MG/2 ML Neb Susp INH SCH (18:04)
[2020-12-13] MEDS: ARFORMOTEROL 15 MCG/2 ML INH SCH (18:05)
[2020-12-13] MEDS ORDERED: Albuterol/Ipratropium 3.0-0.5 MG/3 ML Neb Soln NEB SCH (19:00)
[2020-12-13] MEDS: Apixaban 5 MG Tab PO SCH (21:07)
[2020-12-13] MEDS: Rosuvastatin 10 MG Tab PO SCH (21:07)
[2020-12-13] MEDS: Potassium Chloride 10 MEQ Tab.ER PO SCH (21:07)
[2020-12-13] MEDS: Metoprolol Tartrate 50 MG Tab PO SCH (21:08)
[2020-12-13] MEDS: KETOTIFEN 0.025% EYEBOTH SCH (21:09)
[2020-12-14] MEDS: Albuterol/Ipratropium 3.0-0.5 MG/3 ML Neb Soln NEB PRN ×3 (03:02→23:28)
[2020-12-14] MEDS: Pantoprazole 40 MG Tab.CR PO SCH (06:03)
[2020-12-14 06:34] LABS: ANION GAP 6.8 mEq/L (7-13); CHLORIDE,CL 101 mmol/L (98-107); SODIUM,NA 142 mmol/L (136-145)
[2020-12-14] MEDS ORDERED: predniSONE 20 MG Tab PO SCH (08:00)
[2020-12-14] MEDS: Diltiazem 240 MG Cap.ER PO SCH (08:33)
[2020-12-14] MEDS: Clopidogrel 75 MG Tab PO SCH (08:34)
[2020-12-14] MEDS: Digoxin 125 MCG Tab PO SCH (08:34)
[2020-12-14] MEDS: Furosemide 20 MG Tab PO SCH ×2 (08:35→13:46)
[2020-12-14] MEDS: Apixaban 5 MG Tab PO SCH ×2 (08:35→21:07)
[2020-12-14] MEDS: Metoprolol Tartrate 50 MG Tab PO SCH ×2 (08:36→21:07)
[2020-12-14] MEDS: Insulin Lispro 100 Units/ML 3 ML Vial SUBCUT SCH ×4 (08:36→21:16)
[2020-12-14] MEDS: predniSONE 20 MG Tab PO SCH (08:37)
[2020-12-14] MEDS: KETOTIFEN 0.025% EYEBOTH SCH ×2 (08:39→21:06)
[2020-12-14] MEDS: TIOTROPIUM BROMIDE 4 GM PO SCH (08:39)
[2020-12-14] MEDS: MIST INHAL PO SCH (08:39)
[2020-12-14] MEDS: Budesonide 0.5 MG/2 ML Neb Susp INH SCH ×2 (09:25→18:09)
[2020-12-14] MEDS: ARFORMOTEROL 15 MCG/2 ML INH SCH ×2 (09:36→18:07)
[2020-12-14] MEDS ORDERED: Hydroxyurea 500 MG Cap PO SCH (12:15)
[2020-12-14] MEDS: Rosuvastatin 10 MG Tab PO SCH (21:06)
[2020-12-14] MEDS: Potassium Chloride 10 MEQ Tab.ER PO SCH (21:06)
[2020-12-14] MEDS ORDERED: Insulin Lispro 100 Units/ML 3 ML Vial SUBCUT ONE ×3 (21:10→23:25)
[2020-12-15] MEDS: Albuterol/Ipratropium 3.0-0.5 MG/3 ML Neb Soln NEB PRN ×3 (03:32→10:30)
[2020-12-15] MEDS: Pantoprazole 40 MG Tab.CR PO SCH (06:16)
[2020-12-15] MEDS: Budesonide 0.5 MG/2 ML Neb Susp INH SCH ×2 (07:18→18:33)
[2020-12-15] MEDS: predniSONE 20 MG Tab PO SCH (08:21)
[2020-12-15] MEDS: Clopidogrel 75 MG Tab PO SCH (08:21)
[2020-12-15] MEDS: Apixaban 5 MG Tab PO SCH ×2 (08:21→20:54)
[2020-12-15] MEDS: Diltiazem 240 MG Cap.ER PO SCH (08:21)
[2020-12-15] MEDS: Furosemide 20 MG Tab PO SCH ×2 (08:21→13:51)
[2020-12-15] MEDS: Metoprolol Tartrate 50 MG Tab PO SCH ×2 (08:22→20:56)
[2020-12-15] MEDS: Digoxin 125 MCG Tab PO SCH (08:22)
[2020-12-15] MEDS: KETOTIFEN 0.025% EYEBOTH SCH ×2 (08:23→22:39)
[2020-12-15] MEDS: MIST INHAL PO SCH (08:23)
[2020-12-15] MEDS: TIOTROPIUM BROMIDE 4 GM PO SCH (08:23)
[2020-12-15] MEDS: Insulin Lispro 100 Units/ML 3 ML Vial SUBCUT SCH ×4 (08:24→20:47)
[2020-12-15] MEDS: ARFORMOTEROL 15 MCG/2 ML INH SCH ×2 (10:34→18:34)
[2020-12-15] MEDS ORDERED: Insulin Lispro 100 Units/ML 3 ML Vial SUBCUT ONE (20:45)
[2020-12-15] MEDS: Potassium Chloride 10 MEQ Tab.ER PO SCH (20:54)
[2020-12-15] MEDS: Rosuvastatin 10 MG Tab PO SCH (20:56)
[2020-12-16] MEDS: Pantoprazole 40 MG Tab.CR PO SCH (05:18)
[2020-12-16] MEDS: Albuterol/Ipratropium 3.0-0.5 MG/3 ML Neb Soln NEB PRN ×2 (05:18→09:02)
[2020-12-16] MEDS: ARFORMOTEROL 15 MCG/2 ML INH SCH ×2 (07:30→18:16)
[2020-12-16] MEDS: Budesonide 0.5 MG/2 ML Neb Susp INH SCH ×2 (07:31→18:16)
[2020-12-16] MEDS: Clopidogrel 75 MG Tab PO SCH (08:23)
[2020-12-16] MEDS: Diltiazem 240 MG Cap.ER PO SCH (08:23)
[2020-12-16] MEDS: predniSONE 20 MG Tab PO SCH (08:24)
[2020-12-16] MEDS: Apixaban 5 MG Tab PO SCH ×2 (08:24→21:00)
[2020-12-16] MEDS: Metoprolol Tartrate 50 MG Tab PO SCH ×2 (08:24→20:59)
[2020-12-16] MEDS: Digoxin 125 MCG Tab PO SCH (08:25)
[2020-12-16] MEDS: Furosemide 20 MG Tab PO SCH ×2 (08:25→13:39)
[2020-12-16] MEDS: TIOTROPIUM BROMIDE 4 GM PO SCH (08:26)
[2020-12-16] MEDS: KETOTIFEN 0.025% EYEBOTH SCH ×2 (08:26→21:02)
[2020-12-16] MEDS: MIST INHAL PO SCH (08:26)
[2020-12-16] MEDS: Insulin Lispro 100 Units/ML 3 ML Vial SUBCUT SCH ×5 (08:27→20:57)
[2020-12-16] MEDS: Potassium Chloride 10 MEQ Tab.ER PO SCH (21:00)
[2020-12-16] MEDS: Rosuvastatin 10 MG Tab PO SCH (21:00)
[2020-12-17] MEDS: Pantoprazole 40 MG Tab.CR PO SCH (05:06)
--- NOTE | 2020-12-17 07:10 | PCM.SN.2 ---
- Free Text/Narrative Note: START OF DOCTOR SUDARSHAN PROGRESS NOTE Subjective: The patient currently rates his respiratory status as a 6 out of 10 at times his baseline. He denies exhibiting fever, nausea, vomiting, cough, wheeze, abdominal pain, chest pain, or any other constitutional complaints. The patient indicates that he is eating adequately and has having regular bowel movements. He indicates that he has not yet worked with physical therapy/Occupational Therapy. I explained to the patient his current medical condition and plan of care and I have answered all of his questions Objective: General: -Alert -No acute distress -No dyspnea -No tachypnea Heart: -iRegular rate -iRegular rhythm -No murmurs -No gallops -No rubs Lungs: -No wheeze -No rhonchi -No rales -Very distant breath sounds bilaterally Abdomen: -Normal bowel sounds in all four quadrants -No rebound -No guarding -No tenderness Extremities: -2/4 pulse in all four extremities -No clubbing -No cyanosis -1+ bipedal pitting edema Additional Details / Additional Findings / Exceptions / Miscellaneous: Pertinent Laboratory Results / Pertinent Radiology Results / Pertinent Diagnostic Results / Pertinent Vital Signs: Patient saturating 90% on 4 L, heart rate 58 Assessment / Plan: Dyspnea secondary to CHF exacerbation and COPD exacerbation CHF exacerbation. Strict I's/O. Daily weight. Lasix 20 mg p.o. twice daily plus K-Dur 20 [place] p.o. daily COPD, O2 dependent 3 L. Prednisone 20 mg p.o. daily plus Brovana 15 mcg inhaled twice daily plus Spiriva Respimat: 2 puffs daily plus Pulmicort 0.5 mg inhaled twice daily Seasonal allergies Atrial fibrillation. Eliquis 5 mg p.o. twice daily plus digoxin 125 mcg p.o. daily plus Delacort XR 240 mg p.o. daily plus metoprolol 100 mg p.o. twice daily History of polycythemia vera. Hydroxyurea 500 mg p.o. q. Thursday, Thursday, and Thursday Hypomagnesemia. Will monitor magnesium levels intermittently and supplement as necessary Leukocytosis, chronic at approximately 20,000. Will monitor white blood cell count intermittently. Hydroxyurea 500 mg p.o. q. Thursday, Thursday, and Thursday Obstructive sleep apnea. CPAP/BiPAP: Okay to use home device and/or pressure when sleeping if the patient uses CPAP/BiPAP at home History of vitamin D D deficiency History of left renal cell carcinoma, status post cryotherapy. Outpatient follow-up with hematology/oncology upon discharge Polymyalgia rheumatica Degenerative disc disease Coronary artery disease, status post [place], status post [place]. Plavix 75 mg p.o. daily plus Crestor 5 mg p.o. nightly plus metoprolol 100 mg p.o. twice daily Diabetes. Will check fingerstick glucose before every meal and at bedtime and provide sulci scale GERD. Protonix 40 mg p.o. daily Hyperlipidemia. Crestor 5 mg p.o. nightly Hypertension. Lasix 20 mg p.o. twice daily plus K. Dur 20 [place] p.o. daily plus Delacort XR 240 mg p.o. daily plus metoprolol 100 mg p.o. twice daily Obesity. Patient becomes regarding lifestyle modification Degenerative joint disease DVT prophylaxis. Eliquis 5 mg p.o. twice daily Disposition: The patient will be a candidate for discharge once deemed appropriate by physical therapy and Occupational Therapy END OF DOCTOR BRYSONMIS PROGRESS NOTE
[2020-12-17] MEDS: Budesonide 0.5 MG/2 ML Neb Susp INH SCH ×2 (07:25→18:38)
[2020-12-17] MEDS: ARFORMOTEROL 15 MCG/2 ML INH SCH ×2 (07:25→18:35)
[2020-12-17] MEDS: Furosemide 20 MG Tab PO SCH ×2 (08:17→13:47)
[2020-12-17] MEDS: Metoprolol Tartrate 50 MG Tab PO SCH ×2 (08:17→20:59)
[2020-12-17] MEDS: Apixaban 5 MG Tab PO SCH ×2 (08:17→20:59)
[2020-12-17] MEDS: Diltiazem 240 MG Cap.ER PO SCH (08:18)
[2020-12-17] MEDS: Digoxin 125 MCG Tab PO SCH (08:18)
[2020-12-17] MEDS: predniSONE 20 MG Tab PO SCH (08:18)
[2020-12-17] MEDS: Clopidogrel 75 MG Tab PO SCH (08:18)
[2020-12-17] MEDS: Insulin Lispro 100 Units/ML 3 ML Vial SUBCUT SCH ×4 (08:20→20:57)
[2020-12-17] MEDS: KETOTIFEN 0.025% EYEBOTH SCH ×2 (08:23→21:03)
[2020-12-17] MEDS: MIST INHAL PO SCH (08:24)
[2020-12-17] MEDS: TIOTROPIUM BROMIDE 4 GM PO SCH (08:24)
[2020-12-17] MEDS: Albuterol/Ipratropium 3.0-0.5 MG/3 ML Neb Soln NEB PRN (09:10)
[2020-12-17] MEDS: Potassium Chloride 10 MEQ Tab.ER PO SCH (20:59)
[2020-12-17] MEDS: Rosuvastatin 10 MG Tab PO SCH (21:00)
[2020-12-18] MEDS: Pantoprazole 40 MG Tab.CR PO SCH (06:06)
[2020-12-18] MEDS: ARFORMOTEROL 15 MCG/2 ML INH SCH (07:24)
[2020-12-18] MEDS: Budesonide 0.5 MG/2 ML Neb Susp INH SCH (07:25)
[2020-12-18] MEDS: Albuterol/Ipratropium 3.0-0.5 MG/3 ML Neb Soln NEB PRN (07:28)
[2020-12-18] MEDS: Digoxin 125 MCG Tab PO SCH (08:01)
[2020-12-18] MEDS: predniSONE 20 MG Tab PO SCH (08:01)
[2020-12-18] MEDS: Diltiazem 240 MG Cap.ER PO SCH (08:01)
[2020-12-18] MEDS: Clopidogrel 75 MG Tab PO SCH (08:01)
[2020-12-18] MEDS: Apixaban 5 MG Tab PO SCH (08:01)
[2020-12-18] MEDS: Furosemide 20 MG Tab PO SCH (08:01)
[2020-12-18] MEDS: Metoprolol Tartrate 50 MG Tab PO SCH (08:02)
[2020-12-18] MEDS: KETOTIFEN 0.025% EYEBOTH SCH (08:02)
[2020-12-18] MEDS: Insulin Lispro 100 Units/ML 3 ML Vial SUBCUT SCH (08:06)
[2020-12-18] MEDS: TIOTROPIUM BROMIDE 4 GM PO SCH (08:07)
[2020-12-18] MEDS: MIST INHAL PO SCH (08:07)
--- NOTE | 2020-12-18 08:21 | PCM.SN.2 ---
- Free Text/Narrative Note: START OF DOCTOR [facility] DISCHARGE SUMMARY Date of Admission: December 13, 2020 Date of Discharge: 8:17 AM on December 18, 2020 Primary Diagnosis: Status post swing bed admission for rehabilitation and conditioning Secondary Diagnosis: CHF COPD, O2 dependent at 3 L Seasonal allergies Atrial fibrillation History of polycythemia vera Hypomagnesemia Leukocytosis, chronic at approximately 20,000 Obstructive sleep apnea History of vitamin D deficiency History of left renal cell carcinoma, status post cryotherapy Polymyalgia rheumatica Degenerative disc disease Coronary artery disease, status post NH, status post [place] Diabetes GERD Hyperlipidemia Hypertension Obesity Degenerative joint disease Consultations: None Condition on Discharge: Fair Disposition: The patient will be advised to follow-up with pulmonology 10 to 14 days post discharge for his diagnosis of COPD for which she is O2 dependent 3 L The patient is advised follow-up with hematology/oncology as directed for his history of polycythemia vera, chronic leukocytosis at approximately 20,000, and his history of left renal cell carcinoma for which he is status post cryotherapy The patient is advised to follow-up with his primary care physician or with a provider 5 to 7 days post discharge for posthospitalization evaluation It is strongly recommended that the patient enroll in hospice given his poor short-term and long-term prognosis Discharge Medications: Senna plus: 2 tabs p.o. twice daily Ketotifen 0.025% ophthalmic drop: 1 drop in both eyes twice daily Metoprolol 100 mg p.o. twice daily Nicotine lozenge 2 mg p.o. every 2 hours as needed nicotine withdrawal K-Dur 20 [place]ugh p.o. nightly Spiriva Respimat: 2 inhalations daily Triamcinolone acetonide 1% cream: Apply to affected area topically twice daily as needed unspecified reason Crestor 5 mg p.o. nightly Prednisone 10 mg p.o. daily indefinitely for his end-stage COPD Prilosec 20 mg p.o. daily Nitroglycerin 0.4 mg sublingually every 5 minutes as needed chest pain. He is to call 911 if there is no resolution of chest pain after third dose Metformin 500 mg p.o. twice daily Magnesium oxide 400 mg p.o. daily Probiotics 1 tab p.o. daily Vitamin D 800 IU p.o. daily Bumex 1 mg p.o. twice daily DuoNeb every 4 hours as needed shortness of breath/wheeze Proventil HFA: 90 mcg/spray: 2 puffs every 6 hours as needed shortness of breath/wheeze Eliquis 5 mg p.o. twice daily Brovana 15 mg inhaled twice daily Budesonide 0.5 mg inhaled twice daily Zyrtec 10 mg p.o. daily Plavix 75 mg p.o. daily Digoxin 125 mcg p.o. daily Delacort XR 240 mg p.o. daily END OF DOCTOR EMAM[facility] DISCHARGE SUMMARY
== END 2020-12-18 10:10 | disposition home or self-care (01) | DRG 948 ==
LOC: DL.MS 14:05
PROVIDERS: ADMIT Internal Medicine; ATTEND Internal Medicine
DX: R53.81 Other malaise (principal); J44.9 Chronic obstructive pulmonary disease, unspecified; I50.9 Heart failure, unspecified; I48.91 Unspecified atrial fibrillation; E83.42 Hypomagnesemia; G47.33 Obstructive sleep apnea (adult) (pediatric); E55.9 Vitamin D deficiency, unspecified; Z85.53 Personal history of malignant neoplasm of renal pelvis; M35.3 Polymyalgia rheumatica; D72.828 Other elevated white blood cell count; M19.90 Unspecified osteoarthritis, unspecified site; I25.10 Atherosclerotic heart disease of native coronary artery without angina pectoris; I25.2 Old myocardial infarction; E11.9 Type 2 diabetes mellitus without complications; K21.9 Gastro-esophageal reflux disease without esophagitis; E78.5 Hyperlipidemia, unspecified; E66.9 Obesity, unspecified; Z87.891 Personal history of nicotine dependence; I11.0 Hypertensive heart disease with heart failure
CPT/HCPCS: 36415; 80048; 82947; 83036; 94640; 97165-GO; 97530-GO; A9270-GY; J1610; J1815-GY; J7512; J7620-GY

== ENCOUNTER 2021-12-21 21:31 | Emergency (ER) | payer OTHER, MEDICARE ==
[2021-12-21] MEDS ORDERED: Diltiazem 25 MG/5 ML SDV IVPUSH ONE ×2 (22:21→23:01)
[2021-12-21] MEDS: Sodium Chloride 0.9% 10 ML Syringe FLUSH PRN ×2 (22:35→23:18)
[2021-12-21 22:40] LABS: ANION GAP 9.3 mEq/L (7-13)
[2021-12-21] MEDS ORDERED: Sodium Chloride 0.9% 500 ML IV ONE (22:48)
[2021-12-21] MEDS ORDERED: cefTRIAXone 2 GM in Sodium Chloride 0.9% 100 ML IV ONE (23:16)
[2021-12-21] MEDS ORDERED: Azithromycin 500 MG in Sodium Chloride 0.9% 250 ML IV ONE (23:17)
[2021-12-21] MEDS ORDERED: Midazolam 1 MG/ML 2 ML SDV IVPUSH ONE (23:41)
[2021-12-21] MEDS ORDERED: fentaNYL 100 MCG/2 ML SDV IVPUSH ONE (23:44)
== END 2021-12-22 01:20 ==
LOC: DL.ED 21:31
DX: J18.9 Pneumonia, unspecified organism (principal); I48.92 Unspecified atrial flutter; E78.00 Pure hypercholesterolemia, unspecified; I25.2 Old myocardial infarction; J44.9 Chronic obstructive pulmonary disease, unspecified; E11.9 Type 2 diabetes mellitus without complications; I48.91 Unspecified atrial fibrillation; E66.9 Obesity, unspecified; Z68.33 Body mass index [BMI] 33.0-33.9, adult; Z88.5 Allergy status to narcotic agent; Z79.02 Long term (current) use of antithrombotics/antiplatelets; Z79.01 Long term (current) use of anticoagulants; Z79.899 Other long term (current) drug therapy; Z20.822 Contact with and (suspected) exposure to COVID-19
CPT/HCPCS: 36415; 71046; 80053; 80162; 81001; 83690; 83735; 83880; 84145; 84484; 85025; 86140; 87040; 93005; 93010; 96365; 96367; 99284; 99285-25; J0456; J0696; J2250; J3010; J3490; J7040; J7050; U0002

== ENCOUNTER 2022-08-02 09:17 | Emergency (ER) | payer OTHER, MEDICARE ==
[2022-08-02] MEDS ORDERED: methylPREDNISolone Sodium Succinate 125 MG/2 ML SDV IVPUSH ONE (09:26)
[2022-08-02] MEDS ORDERED: Sodium Chloride 0.9% 10 ML Syringe FLUSH PRN (09:27)
[2022-08-02] MEDS ORDERED: Furosemide 100 MG/10 ML SDV IVPUSH ONE (09:27)
[2022-08-02 10:20] LABS: ANION GAP 6.3 mEq/L (7-13)
== END 2022-08-02 10:39 | disposition home or self-care (01) ==
LOC: DL.ED 09:17
DX: J44.1 Chronic obstructive pulmonary disease with (acute) exacerbation (principal); I48.91 Unspecified atrial fibrillation; E11.9 Type 2 diabetes mellitus without complications; K21.9 Gastro-esophageal reflux disease without esophagitis; Z88.5 Allergy status to narcotic agent; I25.2 Old myocardial infarction; Z79.02 Long term (current) use of antithrombotics/antiplatelets; Z79.01 Long term (current) use of anticoagulants; Z79.899 Other long term (current) drug therapy
CPT/HCPCS: 36415; 71045; 80053; 80162; 83880; 84484; 85025; 93005; 93010; 96374; 96375; 99284; 99285-25; J1940; J2930; J3490

== ENCOUNTER 2023-05-10 19:55 | Emergency (ER) | payer MEDICARE ==
[2023-05-10] MEDS ORDERED: Lidocaine 1% with EPINEPHrine 1:100,000 20 ML MDV INJECT ONE (19:56)
[2023-05-10] MEDS ORDERED: Diphtheria,Pertussis(Acell),Tetanus Vaccine 0.5 ML Syringe IM ONE (20:10)
== END 2023-05-10 20:24 | disposition home or self-care (01) ==
LOC: DL.ED 19:55
DX: S61.411A Laceration without foreign body of right hand, initial encounter (principal); I48.91 Unspecified atrial fibrillation; J44.9 Chronic obstructive pulmonary disease, unspecified; I50.9 Heart failure, unspecified; E78.00 Pure hypercholesterolemia, unspecified; I25.2 Old myocardial infarction; E11.9 Type 2 diabetes mellitus without complications; E66.9 Obesity, unspecified; Z95.5 Presence of coronary angioplasty implant and graft; Z79.01 Long term (current) use of anticoagulants; Z79.84 Long term (current) use of oral hypoglycemic drugs; Z79.899 Other long term (current) drug therapy; Z88.5 Allergy status to narcotic agent; Z23 Encounter for immunization; Z68.30 Body mass index [BMI] 30.0-30.9, adult; W26.8XXA Contact with other sharp object(s), not elsewhere classified, initial encounter
CPT/HCPCS: 90471; 99283; 99283-25

== ENCOUNTER 2023-08-16 16:46 | Emergency (ER) | payer MEDICARE, OTHER ==
[2023-08-16] MEDS: Diphtheria,Pertussis(Acell),Tetanus Vaccine 0.5 ML Syringe IM ONE (17:46)
== END 2023-08-16 17:55 | disposition home or self-care (01) ==
LOC: DL.ED 16:46
DX: S51.812A Laceration without foreign body of left forearm, initial encounter (principal); I48.91 Unspecified atrial fibrillation; I50.9 Heart failure, unspecified; E78.00 Pure hypercholesterolemia, unspecified; I25.2 Old myocardial infarction; J44.9 Chronic obstructive pulmonary disease, unspecified; K21.9 Gastro-esophageal reflux disease without esophagitis; E11.9 Type 2 diabetes mellitus without complications; Z88.5 Allergy status to narcotic agent; Z79.899 Other long term (current) drug therapy; Z79.01 Long term (current) use of anticoagulants; Z86.19 Personal history of other infectious and parasitic diseases; Z79.84 Long term (current) use of oral hypoglycemic drugs; Z23 Encounter for immunization; W01.0XXA Fall on same level from slipping, tripping and stumbling without subsequent striking against object, initial encounter
CPT/HCPCS: 90471; 90715; 99283; 99283-25

== ENCOUNTER 2023-08-24 08:07 | Inpatient (IN) | payer OTHER, MEDICARE ==
[2023-08-24] MEDS: HYDROmorphone 0.5 MG/0.5 ML Syringe IVPUSH ONE (08:46)
[2023-08-24] MEDS: Sodium Chloride 0.9% 10 ML Syringe FLUSH PRN (08:47)
[2023-08-24 08:50] LABS: HEMOGLOBIN 10.9 g/dL (14.0-18.0); MEAN CORPUSCULAR HEMOGLOBIN 23.3 pg (27.0-34.0); MEAN CORPUSCULAR HGB CONC 26.6 g/dL (33.0-35.0); MEAN CORPUSCULAR VOLUME 87.6 fL (80-100); PLATELET COUNT,PLT 284 10^3/uL (150-450); RED BLOOD CELL COUNT 4.68 10^6/uL (4.6-6.2); WHITE BLOOD CELL COUNT,WBC 23.8 10^3/uL (5.0-10.0)
[2023-08-24 09:02] LABS: ALBUMIN 3.3 g/dL (3.4-5.0); ANION GAP 6.4 mEq/L (7-13); BILIRUBIN TOTAL 0.7 mg/dL (0.2-1.0); CALCIUM 8.6 mg/dL (8.5-10.1); CREATININE 1.19 mg/dL (0.70-1.30); EST CRCL DRUG DOSING (CG) 51.85 mL/min; POTASSIUM,K 4.4 mmol/L (3.5-5.1); PROTEIN TOTAL,TP 6.4 g/dL (6.4-8.2)
[2023-08-24 09:06] LABS: A/G RATIO 1.06
[2023-08-24 09:18] LABS: EOSINOPHILS PERCENT MAN 4 % (1-3); LYMPHOCYTES PERCENT MAN 7 % (20-50); MONOCYTES PERCENT MAN 2 % (2-8); SEG NEUTROPHILS PERCENT MAN 86 % (42-75)
[2023-08-24 09:19] LABS: BASOPHILS PERCENT MAN 1; HYPOCHROMASIA 1+ SLIGHT; NRBC MANUAL 1 /100WBC; PLATELET COUNT ESTIMATE ADEQUATE; STOMATOCYTES 2+ MODERATE
[2023-08-24 10:23] LABS: PROTHROMBIN TIME 10.7 SEC (9.0-12.0)
[2023-08-24 10:32] LABS: B-TYPE NATRIURETIC PEPTIDE,BNP 104 pg/ml (0-100)
[2023-08-24] MEDS: Sodium Chloride 0.9% 1,000 ML IV ONE (10:50)
[2023-08-24] MEDS: cefTRIAXone 1 GM Vial IVPUSH ONE (10:50)
[2023-08-24] MEDS ORDERED: Zolpidem 5 MG Tab PO PRN (12:33)
[2023-08-24] MEDS ORDERED: Sennosides/Docusate Sodium 50-8.6 MG Tab PO PRN (12:33)
[2023-08-24] MEDS ORDERED: Acetaminophen 325 MG Tab PO PRN (12:33)
[2023-08-24] MEDS ORDERED: Ondansetron 4 MG/2 ML SDV IVPUSH PRN (12:33)
[2023-08-24] MEDS ORDERED: Magnesium Hydroxide 400 MG/5 ML Susp 30 ML Cup PO PRN (12:33)
[2023-08-24] MEDS ORDERED: Polyethylene Glycol 3350 Powder 17 GM Packet PO PRN (12:33)
[2023-08-24] MEDS ORDERED: Glucagon,Human Recombinant 1 MG Vial IM PRN (13:13)
[2023-08-24] MEDS ORDERED: 50% Dextrose in Water 50 ML Syringe IVPUSH PRN (13:13)
[2023-08-24] MEDS: Ciprofloxacin in D5W 200 MG in Premix Bag 1 BAG IV ONE (13:48)
[2023-08-24] MEDS: HYDROmorphone 0.5 MG/0.5 ML Syringe IVPUSH PRN (14:58)
[2023-08-24] MEDS: Albumin Human 50 GM in Premix Bag 1 BAG IV ONE (15:44)
[2023-08-24] MEDS: Furosemide 100 MG in Sodium Chloride 0.9% 90 ML IV SCH (16:03)
[2023-08-24] MEDS: Insulin Lispro 100 Units/ML 3 ML Vial SUBCUT SCH (17:09)
[2023-08-24] MEDS: Ampicillin/Sulbactam Na 3 GM in Sodium Chloride 0.9% 100 ML IV SCH (18:36)
[2023-08-24] MEDS: Acetaminophen/oxyCODONE 325-5 MG Tab PO PRN (21:15)
[2023-08-24] MEDS: Saccharomyces Boulardii (Probiotic) 250 MG Cap PO SCH (21:23)
[2023-08-24] MEDS: Albuterol/Ipratropium 3.0-0.5 MG/3 ML Neb Soln NEB PRN (21:45)
[2023-08-24] MEDS ORDERED: Nitroglycerin 0.4 MG Tab.SL SL PRN (21:54)
[2023-08-24] MEDS ORDERED: TETRAHYDROZOLINE HCL EYEBOTH PRN (21:54)
[2023-08-24] MEDS ORDERED: Polyvinyl Alcohol 1.4% Ophth Soln 15 ML Bottle EYEBOTH PRN (21:54)
[2023-08-24] MEDS ORDERED: [UNRECOGNIZED DRUG - OTHER] BC PRN (21:54)
[2023-08-24] MEDS ORDERED: Acetaminophen 500 MG Tab PO PRN (21:54)
[2023-08-24] MEDS: Sotalol 80 MG Tab PO ONE (22:13)
[2023-08-24] MEDS: Budesonide 0.5 MG/2 ML Neb Susp NEB ONE (22:14)
[2023-08-25] MEDS: Albumin Human 50 GM in Premix Bag 1 BAG IV ONE (05:00)
[2023-08-25] MEDS ORDERED: Arformoterol 15 MCG/2 ML Neb Soln NEB SCH (06:00)
[2023-08-25] MEDS: Omeprazole 20 MG Cap.CR PO SCH (06:25)
[2023-08-25 06:33] LABS: HEMATOCRIT 41.1 % (40.0-54.0); HEMOGLOBIN 10.7 g/dL (14.0-18.0); MEAN CORPUSCULAR HEMOGLOBIN 23.4 pg (27.0-34.0); MEAN CORPUSCULAR VOLUME 89.7 fL (80-100); PLATELET COUNT,PLT 302 10^3/uL (150-450); RED BLOOD CELL COUNT 4.58 10^6/uL (4.6-6.2); WHITE BLOOD CELL COUNT,WBC 27.9 10^3/uL (5.0-10.0)
[2023-08-25 06:43] LABS: A/G RATIO 1.3; ANION GAP 8.2 mEq/L (7-13); BILIRUBIN TOTAL 0.6 mg/dL (0.2-1.0); BUN/CREATININE RATIO 17.9 (No establ ref range); CALCIUM 8.3 mg/dL (8.5-10.1); CREATININE 1.23 mg/dL (0.70-1.30); EST CRCL DRUG DOSING (CG) 50.17 mL/min; MAGNESIUM 1.8 mg/dL (1.8-2.4); POTASSIUM,K 4.2 mmol/L (3.5-5.1)
[2023-08-25] MEDS ORDERED: HYDROmorphone 0.5 MG/0.5 ML Syringe IVPUSH PRN ×3 (07:19→09:29)
[2023-08-25] MEDS: Naloxone 2 MG/2 ML Syringe IVPUSH PRN (07:20)
[2023-08-25] MEDS: Budesonide 0.5 MG/2 ML Neb Susp NEB SCH (07:49)
[2023-08-25] MEDS: Tiotropium Bromide 4 GM Inhalation Spray (2.5mcg/1 dose; 10 doses) INH SCH (07:50)
[2023-08-25 08:07] LABS: EOSINOPHILS PERCENT MAN 1 % (1-3); LYMPHOCYTES PERCENT MAN 4 % (20-50); MONOCYTES PERCENT MAN 1 % (2-8); SEG NEUTROPHILS PERCENT MAN 94 % (42-75)
[2023-08-25] MEDS ORDERED: traMADol 50 MG Tab PO PRN (08:08)
[2023-08-25 08:27] LABS: BASE EXCESS ARTERIAL 10 mmol/L ((-2)-(+3)); BICARBONATE,ARTERIAL 39.6 mmol/L (22-26); O2 DELIVERY DEVICE OM; O2 SATURATION ARTERIAL 90 % (95-100); PH,ARTERIAL 7.28 (7.35-7.45); PO2 ARTERIAL 65 mmHg (70-100)
[2023-08-25 08:29] LABS: PCO2 ARTERIAL 88 mmHg (35-45)
[2023-08-25 08:30] LABS: ALLEN TEST PERFORMED
[2023-08-25] MEDS ORDERED: Non-Formulary Medication 1 Each (Carvedilol [Carvedilol] 12.5 MG Tablet) PO SCH (09:00)
[2023-08-25] MEDS ORDERED: Non-Formulary Medication 1 Each (Ketotifen [Ketotifen 0.025% Ophth Soln] 5 ML Bottle) EYEBOTH SCH (09:00)
[2023-08-25] MEDS: Ciprofloxacin in D5W 200 MG in Premix Bag 1 BAG IV SCH (11:03)
[2023-08-25] MEDS: methylPREDNISolone Sodium Succinate 125 MG/2 ML SDV IVPUSH ONE ×2 (11:04→11:09)
[2023-08-25] MEDS: Sotalol 80 MG Tab PO SCH (11:05)
[2023-08-25] MEDS: predniSONE 10 MG Tab PO SCH (11:08)
[2023-08-25] MEDS: Magnesium Oxide 400 MG Tab PO SCH (11:08)
[2023-08-25] MEDS: Cholecalciferol (Vitamin D3) 10 MCG Tab PO SCH (11:08)
[2023-08-25] MEDS: Aspirin 81 MG Tab.EC PO SCH (11:08)
[2023-08-25] MEDS: Ferrous Sulfate 325 MG Tab PO SCH (11:08)
[2023-08-25] MEDS ORDERED: fentaNYL 500 MCG in Sodium Chloride 0.9% 50 ML IV SCH (12:45)
[2023-08-25 13:00] LABS: O2 DELIVERY DEVICE BIPAP
[2023-08-25 13:01] LABS: BASE EXCESS VENOUS 9.3 mmol/l ((-2)-(+3)); BICARBONATE,VENOUS 41 mmol/l (19-25); O2 SATURATION VENOUS 97.7 % (60-80); PO2 VENOUS 104 mmHg (35-42)
[2023-08-25 13:03] LABS: PCO2 VENOUS 118 mmHg (41-51); PH,VENOUS 7.17 (7.31-7.41)
[2023-08-25] MEDS ORDERED: Norepinephrine Bit/D5W Premix 250 ML IV SCH (13:30)
[2023-08-25] MEDS ORDERED: propofoL 100 ML IV SCH (14:15)
[2023-08-25] MEDS ORDERED: Omeprazole 20 MG Cap.CR PO SCH (16:00)
[2023-08-25] MEDS ORDERED: Potassium Chloride 10 MEQ Tab.ER PO SCH (21:00)
[2023-08-25] MEDS ORDERED: Rosuvastatin 10 MG Tab PO SCH (21:00)
== END 2023-08-25 14:30 | DRG 602 ==
LOC: DL.ED 08:07 → DL.MS 11:01
PROVIDERS: ADMIT Internal Medicine; ATTEND Internal Medicine
PROC: 5A1935Z Respiratory Ventilation, Less than 24 Consecutive Hours (ICD-10-PCS; principal; 2023-08-25)
PROC: 0BH17EZ Insertion of Endotracheal Airway into Trachea, Via Natural or Artificial Opening (ICD-10-PCS; 2023-08-25)
PROC: 4A033R1 Measurement of Arterial Saturation, Peripheral, Percutaneous Approach (ICD-10-PCS; 2023-08-25)
PROC: 4A033B1 Measurement of Arterial Pressure, Peripheral, Percutaneous Approach (ICD-10-PCS; 2023-08-25)
DX: L03.116 Cellulitis of left lower limb (principal); I48.91 Unspecified atrial fibrillation; J96.01 Acute respiratory failure with hypoxia; I48.92 Unspecified atrial flutter; I48.20 Chronic atrial fibrillation, unspecified; E44.0 Moderate protein-calorie malnutrition; S80.02XA Contusion of left knee, initial encounter; E11.9 Type 2 diabetes mellitus without complications; S51.812A Laceration without foreign body of left forearm, initial encounter; Z66 Do not resuscitate; E78.00 Pure hypercholesterolemia, unspecified; Z79.899 Other long term (current) drug therapy; J44.9 Chronic obstructive pulmonary disease, unspecified; Z79.02 Long term (current) use of antithrombotics/antiplatelets; G47.30 Sleep apnea, unspecified; K21.9 Gastro-esophageal reflux disease without esophagitis; E66.9 Obesity, unspecified; I25.2 Old myocardial infarction; D45 Polycythemia vera; I11.0 Hypertensive heart disease with heart failure; I25.10 Atherosclerotic heart disease of native coronary artery without angina pectoris; M19.90 Unspecified osteoarthritis, unspecified site; I50.9 Heart failure, unspecified; E11.65 Type 2 diabetes mellitus with hyperglycemia; E88.09 Other disorders of plasma-protein metabolism, not elsewhere classified; R26.9 Unspecified abnormalities of gait and mobility; W01.0XXA Fall on same level from slipping, tripping and stumbling without subsequent striking against object, initial encounter; Z96.653 Presence of artificial knee joint, bilateral; Z88.5 Allergy status to narcotic agent; Z79.01 Long term (current) use of anticoagulants; Z68.30 Body mass index [BMI] 30.0-30.9, adult; Z95.5 Presence of coronary angioplasty implant and graft; Z87.891 Personal history of nicotine dependence; Z79.84 Long term (current) use of oral hypoglycemic drugs; Z79.51 Long term (current) use of inhaled steroids; Z86.010 Personal history of colon polyps
CPT/HCPCS: 36415; 73090; 73560; 73590; 80053; 82550; 83605; 83880; 84484; 85025; 85610; 87040 ×2; 93005; 93010; 96374; 96375; 99284 ×2; J0696; J1170; J7030; 31500; 36600; 70450; 71045; 82803; 82947; 83735; 86140; 93971; 94002; 94640; 94660; 94664; A9270-GY; J0295; J0744; J1940; J2310; J2930; J3490; J7620-GY; P9047

== ENCOUNTER 2024-07-14 12:27 | Emergency (ER) | payer OTHER ==
[2024-07-14] MEDS: Albuterol/Ipratropium 3.0-0.5 MG/3 ML Neb Soln NEB ONE (12:45)
[2024-07-14 12:55] LABS: BASOPHILS PERCENT AUTO 1.2 % (0.0-1.0); EOSINOPHILS PERCENT AUTO 3.8 % (1.0-3.0); HEMATOCRIT 43.6 % (40.0-54.0); HEMOGLOBIN 11.8 g/dL (14.0-18.0); LYMPHOCYTES PERCENT AUTO 9.9 % (20.5-50.1); MEAN CORPUSCULAR HEMOGLOBIN 26.9 pg (27.0-34.0); MEAN CORPUSCULAR HGB CONC 27.1 g/dL (33.0-35.0); MEAN CORPUSCULAR VOLUME 99.5 fL (80-100); MONOCYTES PERCENT AUTO 6.9 % (2-8); NEUTROPHILS PERCENT AUTO 78.2 % (42.2-75.2); PLATELET COUNT,PLT 141 10^3/uL (150-450); RED BLOOD CELL COUNT 4.38 10^6/uL (4.6-6.2); WHITE BLOOD CELL COUNT,WBC 8.9 10^3/uL (5.0-10.0)
[2024-07-14 13:22] LABS: A/G RATIO 1.1; ALBUMIN 3.8 g/dL (3.4-5.0); ANION GAP 4.2 mEq/L (7-13); BILIRUBIN DIRECT 0.1 mg/dL (0.0-0.2); BILIRUBIN INDIRECT 0.3; BILIRUBIN TOTAL 0.4 mg/dL (0.2-1.0); CALCIUM 9.2 mg/dL (8.5-10.1); CREATININE 1.38 mg/dL (0.70-1.30); EST CRCL DRUG DOSING (CG) 43.96 mL/min; POTASSIUM,K 4.2 mmol/L (3.5-5.1); PROTEIN TOTAL,TP 7.3 g/dL (6.4-8.2)
[2024-07-14] MEDS: methylPREDNISolone Sodium Succinate 125 MG/2 ML SDV IVPUSH ONE (13:34)
[2024-07-14] MEDS: Albuterol 0.083% 2.5 MG/3 ML Neb Soln NEB ONE (15:49)
[2024-07-14] MEDS: cefTRIAXone 1 GM Vial IVPUSH ONE (15:56)
[2024-07-14] MEDS: Azithromycin 500 MG in Sodium Chloride 0.9% 250 ML IV ONE (15:56)
== END 2024-07-14 16:58 ==
LOC: DL.ED 12:27
DX: J44.1 Chronic obstructive pulmonary disease with (acute) exacerbation (principal); J18.9 Pneumonia, unspecified organism; I50.9 Heart failure, unspecified; E78.00 Pure hypercholesterolemia, unspecified; I25.2 Old myocardial infarction; I48.91 Unspecified atrial fibrillation; E11.9 Type 2 diabetes mellitus without complications; Z88.5 Allergy status to narcotic agent; Z79.51 Long term (current) use of inhaled steroids; Z79.899 Other long term (current) drug therapy; Z79.01 Long term (current) use of anticoagulants; Z95.5 Presence of coronary angioplasty implant and graft
CPT/HCPCS: 36415; 71045; 80048; 80076; 84484; 85025; 87040; 87428-QW; 93005; 93010; 94640; 96365; 96375; 99284; 99285-25; A9270-GY; J0456; J0696; J2919; J7050